=== PATIENT | female | born 1960 | race Caucasian/White ===

== ENCOUNTER 2020-01-05 09:19 | Outpatient (CLI) | payer OTHER, SELFPAY ==
--- NOTE | 2020-01-05 11:00 | NEURO_ITS ---
Patient Number: [id number] Impression: # Complains of right hand pain. # No Carpal Tunnel Syndrome or ulnar neuropathy. # Normal nerve conduction study. # Normal needle/EMG exam. # Clinical correlation recommended. Nerve Conduction Studies Anti Sensory Summary Table Stim Site NR Peak (ms) P-T Amp (?V) Site1 Site2 Delta-P (ms) Dist (cm) Sivakumar (m/s) Right Median Anti Sensory (2-3nd Digit) Wrist 2.6 41.2 Wrist 2-3nd Digit 2.6 14.0 54 Wrist 2.5 52.6 Wrist 2-3nd Digit 2.6 14.0 54 Right Radial Anti Sensory (Base 1st Digit) Wrist 2.2 19.7 Wrist Base 1st Digit 2.2 0.0 Right Ulnar Anti Sensory (5th Digit) Wrist 2.3 32.5 Wrist 5th Digit 2.3 14.0 61 Motor Summary Table Stim Site NR Onset (ms) O-P Amp (mV) Site1 Site2 Delta-0 (ms) Dist (cm) Sivakumar (m/s) Right Median Motor (Abd Poll Brev) Wrist 2.7 3.8 Elbow Wrist 5.0 27.0 54 Elbow 7.7 1.7 Right Ulnar Motor (Abd Dig Minimi) Wrist 2.7 5.3 A Elbow Wrist 5.1 28.0 55 A Elbow 7.8 4.4 F Wave Studies NR F-Lat (ms) L-R F-Lat (ms) Right Median (Mrkrs) (Abd Poll Brev) 27.33 Right Ulnar (Mrkrs) (Abd Dig Min) 27.31 EMG Side Muscle Nerve Root Ins Act Fibs Amp Dur Recrt Comment Right 1stDorInt Ulnar C8-T1 Nml Nml Nml Nml Nml Right Ext Indicis Radial (Post Int) C7-8 Nml Nml Nml Nml Nml Right Ext Digitorum Radial (Post Int) C7-8 Nml Nml Nml Nml Nml Right BrachioRad Radial C5-6 Nml Nml Nml Nml Nml Right PronatorTeres Median C6-7 Nml Nml Nml Nml Nml Right Abd Poll Brev Median C8-T1 Nml Nml Nml Nml Nml Right ABD Dig Min Ulnar C8-T1 Nml Nml Nml Nml Nml MTDD
== END 2020-01-05 09:20 | disposition home or self-care (01) ==
LOC: ANHNEURO 09:20
PROVIDERS: PCP Internal Medicine Infectious Disease; Visit Provider Plastic Surgery
DX: R53.1 Weakness (principal); R20.2 Paresthesia of skin
CPT/HCPCS: 95886; 95909

== ENCOUNTER 2021-07-30 09:32 | Outpatient (CLI) | payer OTHER, SELFPAY ==
--- NOTE | 2021-07-30 10:00 | ECG_ITS ---
Measurements Intervals [place] Rate: 62 P: -9 NM: 125 QRS: 72 QRSD: 142 T: 16 QT: 423 QTc: 430 Interpretive Statements SINUS RHYTHM RIGHT BUNDLE BRANCH BLOCK ABNORMAL ECG Electronically Signed On 07-30-2021 9:59:10 GRADUATE INTERN by Matt Jason D.O.
[2021-07-30 10:20] LABS: Anion Gap 10 mmol/L (8-16); Blood Urea Nitrogen 20 mg/dL (7-17); Calcium 10.5 mg/dL (8.4-10.2); Carbon Dioxide 27 mmol/L (22-30); Chloride 100 mmol/L (98-107); Estimated Glomerular Filt Rate > 60; Glucose 194 mg/dL (65-110); Sodium 137 mmol/L (137-145)
== END 2021-07-30 09:33 | disposition home or self-care (01) ==
LOC: ANHSURGERY 09:35
PROVIDERS: Anesthesiology; PCP Family Medicine; Visit Provider Orthopaedic Surgery
DX: Z01.818 Encounter for other preprocedural examination (principal); E11.9 Type 2 diabetes mellitus without complications; I10 Essential (primary) hypertension; Z79.899 Other long term (current) drug therapy; R94.31 Abnormal electrocardiogram [ECG] [EKG]
CPT/HCPCS: 36415; 80048; 93005

== ENCOUNTER 2021-07-31 00:10 | Day surgery (SDC) | payer OTHER, SELFPAY ==
[2021-07-27 12:15] VITALS: BMI 34.7
--- NOTE | 2021-07-27 12:34 | PC.NURSE ---
Report to the Outpatient Waiting Room, entrance under the green pavilion located off [facility], at time 12:00 on date 07/31/21. OR Time: 2:00. - You will be asked a series of questions to screen for COVID 19 for your protection. - A mask is required within the hospital. - No visitors are allowed at this time. Preoperative COVID Testing Requirements: No COVID Test needed if: (proof is required; if not received patient will have Rapid Test prior to entry) - Patient has received COVID Vaccine at least 14 days prior to procedure date or - Patient has positive COVID test result within last 90 days of surgery date. COVID Test needed if above criteria is not met Patients may have clear liquids (water, carbonated beverages, clear teas, apple juice) until 3 hours prior to surgery (11:00) with a maximum of 20 ounces. - No food from midnight until time of surgery Take the following medications with a SIP of water the morning of surgery: 1/2 AM INSULIN DOSE (10 UNITS), LEVOTHYROXINE, GABAPENTIN, SERTRALINE, TRAMADOL (IF NEEDED) Medications to discontinue per physician: ASPIRIN Date to take last dose: PER DR. WOODY Please no make-up, nail belarusian, hairspray, perfume, deodorant, or body powder the day of surgery. No jewelry (including any body piercings) or valuables the day of surgery, leave them at home. Please take a shower or bath the night before, or the morning of, surgery with an antibacterial soap. Wear comfortable, loose fitting clothing. - Jewelry must be removed prior to entering the operating room. Rings and piercings that are not removed may be cut off. - The hospital will not accept responsibility for valuables. - Please leave all valuables, including medications, at home the day of surgery. If you are going home after surgery, a licensed armored car driver must drive you home. - NO public transportation without another adult. - We recommend that an adult stay with you for 24 hours following discharge. - We also recommend that you do not drive, make important decision, drink alcoholic beverages, or take any drugs that were not prescribed by your health care provider for at least 24 hours after your discharge time. Follow any additional instructions given to you from your surgeon. Telephone instructions given to CAROLINA HERMAN and asked if any additional questions and then verbalized understanding. Patient advised to call surgeon office or pre surgery nurse liaison [phone] if any additional questions.
--- NOTE | 2021-07-30 13:23 | WPDANESEPPF ---
Anes - Initial Pre Proc Eval Procedure: Operation Date: 07/31/21 14:00 Proposed Procedures p Right Knee Arthroscopy - Kishore Omer MD Date/Time: 07/30/21 13:23 Surgeon: Kishore Omer MD Pre Op Diagnosis: Rt Medial Meniscus Tear Patient Data Age: 61 Gender: F Height: 1.6 m Weight: 88.9 kg Allergies Allergy/AdvReac Type Severity Reaction Status Date / Time codeine Allergy Severe Anaphylaxis Verified 07/27/21 12:09 orphenadrine Allergy Severe Anaphylactic Verified 07/30/21 13:40 Shock caffeine Allergy Mild Hives Verified 07/27/21 12:09 meperidine Allergy Mild Unknown Verified 07/30/21 13:40 Home Medications Medication Instructions Recorded Confirmed Type aspirin 325 mg tablet 325 mg PO DAILY 03/22/21 07/27/21 History cetirizine 10 mg tablet 10 mg PO DAILY PRN 03/22/21 07/27/21 History cyclobenzaprine 10 mg tablet 10 mg PO TID 03/22/21 07/27/21 History famotidine 40 mg tablet 40 mg PO DAILY 03/22/21 07/27/21 History fenofibrate 160 mg tablet 160 mg PO DAILY 03/22/21 07/27/21 History gabapentin 300 mg/6 mL (6 mL) oral 100 mg PO Q4-5H ml 03/22/21 07/27/21 History solution levothyroxine 25 mcg capsule 25 mcg PO DAILY 03/22/21 07/27/21 History lisinopril 20 1 tablet PO DAILY 03/22/21 07/27/21 History mg-hydrochlorothiazide 12.5 mg tablet metformin 1,000 mg tablet 1,000 mg PO BID 03/22/21 07/27/21 History montelukast 10 mg tablet 10 mg PO DAILY 03/22/21 07/27/21 History rosuvastatin 20 mg tablet 20 mg PO DAILY 03/22/21 07/27/21 History sertraline 100 mg tablet 200 mg PO DAILY tablet 03/22/21 07/27/21 History tramadol 50 mg tablet 50 mg PO Q6H PRN 03/22/21 07/27/21 History chlorhexidine gluconate 4 % 1 applic TOPICAL ONCE #3800 ml 05/21/21 07/27/21 Rx topical liquid empagliflozin [Jardiance] 10 mg PO DAILY 07/27/21 07/27/21 History insulin glargine [Lantus Solostar 20 unit SUBCUT BID 07/27/21 07/27/21 History U-100 Insulin] insulin lispro [Admelog U-100 12 unit SUBCUT TIDWM 07/27/21 07/27/21 History Insulin lispro] Patient hx anesthesia problems: none Family hx anesthesia problems: none Results Review: All pre-operative results and documents have been reviewed as part of the pre-operative evaluation. [facility] Past Medical History Medical History Abdominal pain Anxiety Arthritis Depression Diabetes Diabetes Diarrhea Diet-controlled hyperlipidemia Excessive thirst Falls frequently Fibrocystic breast disease Hair loss HTN (hypertension) Medial meniscus tear Medial meniscus tear Nausea & vomiting Right knee pain Vision abnormalities Wears glasses Surgical History Surgical History History of elbow surgery bilateral History of hand surgery bilateral trigger finger History of hysterectomy History of shoulder surgery Family History Family History Other Arthritis Asthma Depression Diabetes mellitus Heart disease High cholesterol Hypertension Kidney disorder Lung disease Neuropathy Social History Social History Smoking packs per day: 0.75 Smoking cigarettes per day: 15.0 Years smoked: 20 Smoking pack-years: 15.00 Tobacco type: cigarettes Smoking end date: 07/07/04 Alcohol intake: never Substance use: never Substance use type: does not use Living arrangements: alone Spiritual care concerns: No Anes - Eval Final PreProcedure Day of Procedure 07/30/21 13:23 Patient weight: obese Heart: regular rate and rhythm Lungs: clear to auscultation and normal air movement Airway: Mallampati scale class II Neurological: alert and oriented Last oral intake: >/= 8 hours ASA classification: III Emergent: no Anesthetic plan: proceed Anesthesia type and monitoring: general LMA Results Review: All pre-operative results and documents hav
[2021-07-31] VITALS (13 sets, daily range): BP systolic 134–159; BP diastolic 65–93; PULSE 78–98; RESP 12–16; TEMP 36–37.1; O2SAT 94–100
--- NOTE | 2021-07-31 07:30 | WPDHPUPDATE1 ---
History and Physical Update Update Date/Time: 07/31/21 07:30 History and Physical has been reviewed, including an updated exam of the patient. There are NO changes in the patient's condition. Risks, benefits, and alternatives have been discussed and questions answered. Patient agrees to proceed with procedure.
[2021-07-31] MEDS: CELECOXIB 200 MG CAPSULE PO (09:20)
[2021-07-31] MEDS: ACETAMINOPHEN 500 MG TABLET 1000 MG PO (09:20)
[2021-07-31] MEDS: LACTATED RINGERS 1,000 ML 30 ML IV CONT ×2 (09:49→11:57)
[2021-07-31 09:53] LABS: Glucose Point of Care 146 mg/dl (65-105)
[2021-07-31] MEDS: ceFAZolin 2 GM/D5W 50 ML 2 GM/50 ML BAG IVPB (10:42)
[2021-07-31 12:04] LABS: Glucose Point of Care 181 mg/dl (65-105)
--- NOTE | 2021-07-31 12:34 | P.OP_ITS ---
Procedure Note - Detailed Date of Procedure 07/31/21 Pre-op Diagnosis Rt Medial Meniscus Tear Post-op Diagnosis same Procedure Performed RIGHT KNEE SCOPE Surgeon Kishore Omer MD Anesthesia general Description of Procedure PATIENT WAS TAKEN TO THE OR. RIGHT LEG WAS PREPPED AND DRAPED STERILE. TROCARS WERE PLACED IN THE USUAL FASHION. CAMERA WAS INTRODUCED. THERE WAS CHONDROMALACIA TO THE PATELLA FEMORAL JOINT. THERE WAS A LOT OF SYNOVITIS IN ALL COMPARTMENTS. THE MEDIAL COMPARTMENT SHOWED CHONDROMALACIA TO THE MEDIAL FEMORAL CONDYLE. A SHAVER WAS USED TO PREFORM A CHONDROPLASTY. THERE WAS A COMPLEX MEDIAL MENISCUS TEAR. THE TEAR WAS LOCATED AT THE MENISCAL ROOT. THE TEAR WAS RESECTED WITH A BITER AND A SHAVER DOWN TO A SMOOTH BASE. THE ACL WAS INTACT. THE LATERAL MENISCUS WAS NOT TORN THE LAT COMPARTMENT HAD GRADE 2 CHONDROMALACIA AT THE LATERAL PLATEAU. CHONDROPLASTY WAS PREFORMED. A SYN OVECTOMY WAS PREFORMED WELL. THE PATELLO FEMORAL JOINT UNDERWENT CHONDROPLASTY. THERE WAS GRADE 2 CHONDROMALACIA IN PART OF THE TROCHLEA AND PART OF THE PATELLA. SYNOVECTOMY WAS PREFORMED IN THE SUPERIOR MEDIAL COMPARTMENT. THE WOUNDS WERE APPROXIMATED WITH 4.0 NYLON. STERILE DRESSING WAS APPLIED. PATIENT WAS EXTUBATED. Estimated Blood Loss 5 Complications No immediate complications Condition stable Disposition PACU
[2021-07-31] MEDS: fentaNYL CITRATE INJ (*CRX) 100 MCG/2 ML VIAL 25 MCG IV PUSH (12:48)
[2021-07-31] MEDS: oxyCODONE HCL (*CRX) 5 MG TAB IR PO (14:43)
== END 2021-07-31 15:44 | disposition home or self-care (01) ==
PROVIDERS: PCP Family Medicine; Visit Provider Orthopaedic Surgery
PROC: (CPT 29870; principal; 2021-07-31 10:30)
DX: M23.331 Other meniscus derangements, other medial meniscus, right knee (principal); M94.261 Chondromalacia, right knee; M65.861 Other synovitis and tenosynovitis, right lower leg; I10 Essential (primary) hypertension; E11.40 Type 2 diabetes mellitus with diabetic neuropathy, unspecified; F41.8 Other specified anxiety disorders; R29.6 Repeated falls; Z79.82 Long term (current) use of aspirin; Z79.84 Long term (current) use of oral hypoglycemic drugs; Z79.4 Long term (current) use of insulin; Z87.891 Personal history of nicotine dependence; E66.9 Obesity, unspecified; Z68.33 Body mass index [BMI] 33.0-33.9, adult
CPT/HCPCS: 29881; 82948; A9270; J0690; J1100; J2250; J2405; J2704; J3010; J7120

== ENCOUNTER 2021-10-24 13:55 | Outpatient (CLI) | payer OTHER, SELFPAY ==
--- NOTE | ~2021-10-24 | MR_ITS ---
EXAMINATION: MR knee RT wo con DATE: 10/24/2021 14:27 INDICATION: Right knee pain. TECHNIQUE: Magnetic resonance imaging (MRI) of the right knee was performed without intravenous contr ast. Sequences included coronal PD-weighted FSE, coronal PD-weighted FS FSE, sagittal T2-weighted FS E, sagittal PD-weighted FS FSE and axial PD weighted fat saturated FSE. COMPARISON: None. FINDINGS: Medial compartment: Radial tear near the posterior root of the medial meniscus. Shallow chondral ulceration along the ant erior weightbearing medial femoral condyle. Lateral compartment: Lateral meniscus is normal. Articular cartilage is normal. Patellofemoral compartment: Chondral ulceration with deep fissuring at the central aspect of the patellar apical ridge and immedi ately adjacent medial to central aspect of the lateral patellar facet. Additional deep chondral ulcer ation with minimal underlying cortical irregularity along the inferior aspect of the lateral trochlea . Ligaments and tendons: Anterior and posterior cruciate ligaments are normal. The medial collateral ligament and fibular nesha ateral ligament complex are normal. The extensor mechanism is normal. The visualized medial and later al hamstring tendons as well as the iliotibial band are normal. Fluid: Small right knee joint effusion. Moderate-sized Taylor's cyst measuring 5.6 cm craniocaudal and 3.7 x 1.3 cm in maximal orthogonal dimensions. No loose osteochondral bodies identified. Osseous/other: Normal marrow signal. No fracture or pathologic marrow replacing process. IMPRESSION: 1. Full-thickness radial tear near the posterior root of the medial meniscus. 2. Mild osteoarthritis with moderate grade chondromalacia in the medial compartment and moderate to h igh-grade in the patellofemoral compartment. 3. Small right knee joint effusion and moderate-sized Taylor's cyst. Reviewed, dictated and finalized at location A. IMPRESSION: 1. Full-thickness radial tear near the posterior root of the medial meniscus. 2. Mild osteoarthritis with moderate grade chondromalacia in the medial compart ment and moderate to high-grade in the patellofemoral compartment. 3. Small right knee joint effusion and moderate-sized Taylor's cyst.
== END 2021-10-24 13:56 | disposition home or self-care (01) ==
LOC: ANHIMG 13:56
PROVIDERS: PCP Family Medicine; Visit Provider Orthopaedic Surgery
DX: M25.561 Pain in right knee (principal); S83.241A Other tear of medial meniscus, current injury, right knee, initial encounter; M17.11 Unilateral primary osteoarthritis, right knee; M94.261 Chondromalacia, right knee; M25.461 Effusion, right knee; M71.21 Synovial cyst of popliteal space [Baker], right knee
CPT/HCPCS: 73721

== ENCOUNTER 2021-10-30 08:50 | Outpatient (CLI) | payer OTHER, SELFPAY ==
[2021-10-30 09:40] LABS: Anion Gap 9 mmol/L (8-16); Blood Urea Nitrogen 27 mg/dL (7-17); Calcium 10.1 mg/dL (8.4-10.2); Carbon Dioxide 27 mmol/L (22-30); Chloride 101 mmol/L (98-107); Estimated Glomerular Filt Rate > 60; Glucose 211 mg/dL (65-110); Potassium 4.7 mmol/L (3.4-5.0); Sodium 137 mmol/L (137-145)
== END 2021-10-30 08:51 | disposition home or self-care (01) ==
PROVIDERS: Anesthesiology; PCP Family Medicine; Visit Provider Orthopaedic Surgery
DX: Z01.812 Encounter for preprocedural laboratory examination (principal); E11.9 Type 2 diabetes mellitus without complications
CPT/HCPCS: 36415; 80048

== ENCOUNTER 2021-11-06 00:21 | Day surgery (SDC) | payer OTHER, SELFPAY ==
[2021-10-29 10:13] VITALS: BMI 34.6
--- NOTE | 2021-10-29 10:20 | PC.NURSE ---
Addendum entered by Lima Hensley RN 10/30/21 07:29: STOP ASPIRIN PER DR. WOODY'S INSTRUCTIONS Original Note: Report to the Outpatient Waiting Room, entrance under the green pavilion located off [facility], at time _1030_ on date _[id number]_. OR Time: _1230_. - You and your visitor will be asked a series of questions to screen for COVID 19 for your protection. - A mask is required within the hospital. - Patient has received COVID Vaccine at least 14 days prior to procedure date. Patients may have clear liquids (water, carbonated beverages, clear teas, apple juice) until 3 hours prior to surgery with a maximum of 20 ounces. - No food from midnight until time of surgery Take the following medications with a SIP of water the morning of surgery: _Gabepentin and Levothyroxine Medications to discontinue per physician Date to take last dose No insulin or diabetic medication morning of surgery. Please no make-up, nail sri lankan, hairspray, perfume, deodorant, or body powder the day of surgery. No jewelry (including any body piercings) or valuables the day of surgery, leave them at home. Please take a shower or bath the night before, or the morning of, surgery with an antibacterial soap. Wear comfortable, loose fitting clothing. Children are encouraged to wear pajamas. - Jewelry must be removed prior to entering the operating room. Rings and piercings that are not removed may be cut off. - The hospital will not accept responsibility for valuables. - Please leave all valuables, including medications, at home the day of surgery. If you are going home after surgery, a licensed company driver must drive you home. - NO public transportation without another adult. - We recommend that an adult stay with you for 24 hours following discharge. - We also recommend that you do not drive, make important decision, drink alcoholic beverages, or take any drugs that were not prescribed by your health care provider for at least 24 hours after your discharge time. For Pediatric surgeries, we recommend two adults accompany the child home (only one inside the building at this time). One visitor will be allowed to accompany the patient into the hospital. Patients visitor will be instructed to remain with patient at all times or leave the building. We will allow the visitor to come back to the postoperative area when patient is ready. Follow any additional instructions given to you from your surgeon. Telephone instructions given to ___Patient and asked if any additional questions and then verbalized understanding. Patient advised to call surgeon office or pre surgery nurse liaison [phone] if any additional questions.
[2021-11-06] VITALS (10 sets, daily range): BP systolic 112–197; BP diastolic 57–97; PULSE 58–87; RESP 10–16; TEMP 36.6–36.7; O2SAT 93–100
--- NOTE | 2021-11-06 07:15 | WPDHPUPDATE1 ---
History and Physical Update Update Date/Time: 11/06/21 07:15 History and Physical has been reviewed, including an updated exam of the patient. There are NO changes in the patient's condition. Risks, benefits, and alternatives have been discussed and questions answered. Patient agrees to proceed with procedure.
[2021-11-06 10:09] LABS: Glucose Point of Care 152 mg/dl (65-105)
[2021-11-06] MEDS: LACTATED RINGERS 1,000 ML 30 ML IV CONT ×2 (10:25→13:51)
[2021-11-06] MEDS: ACETAMINOPHEN 500 MG TABLET 1000 MG PO (10:30)
[2021-11-06] MEDS: CELECOXIB 200 MG CAPSULE PO (10:30)
--- NOTE | 2021-11-06 11:27 | WPDANESEPPF ---
Anes - Initial Pre Proc Eval Procedure: Operation Date: 11/06/21 12:30 Proposed Procedures p Right Knee Arthroscopy, Proceed As Indicated - Kishore Omer MD Date/Time: 11/06/21 11:27 Surgeon: Kishore Omer MD Pre Op Diagnosis: right knee medial meniscus tear Patient Data Age: 61 Gender: F Height: 1.6 m Weight: 89 kg Last Vital Signs Temp 36.7 C 11/06/21 09:55 Pulse 74 11/06/21 09:55 Resp 16 11/06/21 09:55 BP 132/79 11/06/21 09:55 Pulse Ox 98 11/06/21 09:55 Allergies Allergy/AdvReac Type Severity Reaction Status Date / Time codeine Allergy Severe Anaphylaxis Verified 11/06/21 09:56 orphenadrine Allergy Severe Anaphylactic Verified 11/06/21 09:56 Shock caffeine Allergy Mild Hives Verified 11/06/21 09:56 meperidine Allergy Mild Unknown Verified 11/06/21 09:56 Home Medications Medication Instructions Recorded Confirmed Type cetirizine 10 mg tablet 10 mg PO DAILY 03/22/21 10/29/21 History cyclobenzaprine 10 mg tablet 10 mg PO TID 03/22/21 10/29/21 History famotidine 40 mg tablet 40 mg PO DAILY 03/22/21 10/29/21 History fenofibrate 160 mg tablet 160 mg PO DAILY 03/22/21 10/29/21 History levothyroxine 25 mcg capsule 25 mcg PO DAILY 03/22/21 10/29/21 History lisinopril 20 1 tablet PO DAILY 03/22/21 10/29/21 History mg-hydrochlorothiazide 12.5 mg tablet montelukast 10 mg tablet 10 mg PO DAILY 03/22/21 10/29/21 History rosuvastatin 20 mg tablet 20 mg PO DAILY 03/22/21 10/29/21 History sertraline 100 mg tablet 200 mg PO HS tablet 03/22/21 10/29/21 History tramadol 50 mg tablet 50 mg PO Q6H PRN 03/22/21 10/29/21 History Jardiance 10 mg PO DAILY 07/27/21 10/29/21 History Lantus Solostar U-100 Insulin 20 unit SUBCUT BID 07/27/21 10/29/21 History insulin lispro [Admelog U-100 12 unit SUBCUT TIDWM 07/27/21 10/29/21 History Insulin lispro] aspirin [Aspir-81] 81 mg PO DAILY 10/29/21 10/29/21 History gabapentin 300 mg PO TID 10/29/21 10/29/21 History metformin 500 mg PO BID 10/29/21 10/29/21 History Laboratory Tests 11/06/21 10:07 POC Capillary Glucose 152 mg/dl H mg/dl (65-105) Patient hx anesthesia problems: none Family hx anesthesia problems: none Results Review: All pre-operative results and documents have been reviewed as part of the pre-operative evaluation. [facility] Past Medical History Medical History Abdominal pain Anxiety Arthritis Depression Diabetes Diabetes Diarrhea Diet-controlled hyperlipidemia Excessive thirst Falls frequently Fibrocystic breast disease Hair loss HTN (hypertension) Medial meniscus tear Medial meniscus tear Nausea & vomiting Right knee pain Vision abnormalities Wears glasses Surgical History Surgical History History of elbow surgery bilateral History of hand surgery bilateral trigger finger History of hysterectomy History of shoulder surgery Family History Family History Other Arthritis Asthma Depression Diabetes mellitus Heart disease High cholesterol Hypertension Kidney disorder Lung disease Neuropathy Social History Social History Smoking packs per day: 1 Smoking cigarettes per day: 20.0 Years smoked: 10 Smoking pack-years: 10.00 Smoking status: Former smoker Tobacco type: cigarettes Smoking end date: 10/29/01 Alcohol intake: never Substance use: never Substance use type: does not use Living arrangements: alone Spiritual care concerns: No Anes - Eval Final PreProcedure Day of Procedure 11/06/21 11:27 Patient weight: obese Heart: regular rate and rhythm Lungs: decreased breath sounds Airway: Mallampati scale class II Neurological: alert and oriented Last oral intake: >/= 8 hours ASA classification: III Emergent: no Anest
[2021-11-06] MEDS: ceFAZolin 2 GM/D5W 50 ML 2 GM/50 ML BAG IVPB (12:48)
[2021-11-06] MEDS: BUPIVACAINE HCL 0.5% PF 30 ML VIAL INFILTRATE (13:07)
[2021-11-06] MEDS: fentaNYL CITRATE INJ (*CRX) 100 MCG/2 ML VIAL 25 MCG IV PUSH ×8 (14:01→15:37)
[2021-11-06 14:08] LABS: Glucose Point of Care 131 mg/dl (65-105)
--- NOTE | 2021-11-06 14:10 | W.PM.PROC2 ---
Procedure Note - Detailed Date of Procedure 11/06/21 Pre-op Diagnosis right knee recurrent medial meniscus tear Post-op Diagnosis Same Procedure Performed RIGHT KNEE SCOPE Surgeon Kishore Omer MD Anesthesia General Description of Procedure PATIENT WAS TAKEN TO THE OR. RIGHT LEG WAS PREPPED AND DRAPED STERILE. TROCARS WERE PLACED IN THE USUAL FASHION. CAMERA WAS INTRODUCED. THERE WAS CHONDROMALACIA TO THE PATELLA FEMORAL JOINT. THERE WAS A LOT OF SYNOVITIS IN ALL COMPARTMENTS. THE MEDIAL COMPARTMENT SHOWED CHONDROMALACIA TO THE MEDIAL FEMORAL CONDYLE. A SHAVER WAS USED TO PREFORM A CHONDROPLASTY. THERE WAS A RECURRENT MEDIAL MENISCUS TEAR AT THE ROOT OF THE MEDIAL MENISCUS. THE TEAR WAS RESECTED WITH A BITER AND A SHAVER. THE ACL WAS INTACT. THE LATERAL MENISCUS WAS NOT TORN. THERE WAS NO SIGNIFICANT CHONDROMALACIA TO THE LATERAL COMPARTMENT. THE PATELLO FEMORAL JOINT UNDERWENT CHONDROPLASTY. THERE WAS GRADE 3 CHONDROMALACIA IN PART OF THE PATELLA AND GRADE 2 IN THE TROCHLEA. SYNOVECTOMY WAS PREFORMED IN THE SUPERIOR MEDIAL COMPARTMENT. THE WOUNDS WERE APPROXIMATED WITH 4.0 NYLON. STERILE DRESSING WAS APPLIED. PATIENT WAS EXTUBATED. Estimated Blood Loss -5.0 Complications No immediate complications Condition Stable Disposition PACU
[2021-11-06] MEDS: oxyCODONE/ACETAMINOPHEN (*CRX) 5-325 MG TABLET 1 TABLET PO (15:29)
== END 2021-11-06 16:15 | disposition home or self-care (01) ==
PROVIDERS: PCP Family Medicine; Visit Provider Orthopaedic Surgery
PROC: (CPT 29870; principal; 2021-11-06 12:30)
DX: M23.203 Derangement of unspecified medial meniscus due to old tear or injury, right knee (principal); M22.41 Chondromalacia patellae, right knee; M23.91 Unspecified internal derangement of right knee; M65.861 Other synovitis and tenosynovitis, right lower leg; F41.8 Other specified anxiety disorders; M19.90 Unspecified osteoarthritis, unspecified site; M25.561 Pain in right knee; E11.9 Type 2 diabetes mellitus without complications; E78.5 Hyperlipidemia, unspecified; I10 Essential (primary) hypertension; Z91.81 History of falling; N60.19 Diffuse cystic mastopathy of unspecified breast; Z87.891 Personal history of nicotine dependence; E03.9 Hypothyroidism, unspecified; Z79.82 Long term (current) use of aspirin; Z79.84 Long term (current) use of oral hypoglycemic drugs; Z79.4 Long term (current) use of insulin; E66.9 Obesity, unspecified; Z68.34 Body mass index [BMI] 34.0-34.9, adult
CPT/HCPCS: 29881; 82948; A9270; J0690; J1040; J2250; J2405; J2704; J3010; J7120

== ENCOUNTER 2024-08-26 11:46 | Outpatient (CLI) | payer MEDICARE, MEDICAID, SELFPAY ==
--- NOTE | ~2024-08-26 | XR_ITS ---
Right elbow Technique: AP, oblique, and lateral views were obtained. Clinical History: Pain Findings: Subtle linear lucency at the medial epicondyle region is felt to be artifactual. No evidenc e of fracture. Osseous alignment is anatomic. Joint spaces are preserved. There is no displacement of the fat pads, and soft tissues are unremarkable. Impression: Subtle linear lucency medial epicondyle region is felt to be artifactual. Correlate clinically for an y possibility of nondisplaced fracture. Consider cross-sectional imaging to further evaluate, as esperanza cated. Reviewed, dictated and finalized at location . [employer]ANT MEDIA BUYER Impression: Subtle linear lucency medial epicondyle region is felt to be artifactual. Corre late clinically for any possibility of nondisplaced fracture. Consider cross-se ctional imaging to further evaluate, as indicated.
--- NOTE | ~2024-08-26 | XR_ITS ---
Right Shoulder Technique: AP and axillary views were obtained. Clinical History: Pain Findings: No fracture or dislocation is seen. Osseous alignment is anatomic. The glenohumeral and acr omioclavicular joints demonstrate minimal degenerative change. Soft tissues are unremarkable. Impression: Minimal degenerative changes, as above. Reviewed, dictated and finalized at [facility]. H MACHINE SETTER Impression: Minimal degenerative changes, as above.
--- OUTSIDE RECORDS SUMMARY | 2024-08-26 11:59 | XMS_ITS | Clinical Summary ---
Author Organization [facility] [address] [place] [address] [place] [id number] Care Team Providers Care Animal Impersonator Name Role Phone Adolfo Lyn Primary Care Provider + Allergies Active Allergy Reactions Criticality Noted Date Comments Codeine Rash Medium 12/25/2023 Hydrocodone-Acetaminophe n Hives,Itching,Swell ing,Rash High 11/21/2016 Throat swelled,hives,troub le breathing Iodinated Contrast Media Unknown,Rash Medium Empagliflozin Diarrhea Medium 06/18/2022 Meperidine Rash Medium 12/25/2023 [id number] e Unknown 12/25/2023 Semaglutide Diarrhea,Stomach upset High 06/18/2022 Medications cetirizine (ZyrTEC) 10 mg tablet cetirizine 10 mg tablet Active famotidine (PEPCID) 20 mg tablet famotidine 20 mg tablet Active fenofibrate (TRIGLIDE) 160 mg tablet fenofibrate 160 mg tablet Active lisinopril-hydroCH LOROthiazide (ZESTORETIC) 20-12.5 mg per tablet lisinopril 20 mg-hydrochloroth iazide 12.5 mg tablet 07/07/18 70 Active montelukast (SINGULAIR) 10 mg tablet montelukast 10 mg tablet Active rosuvastatin (CRESTOR) 40 mg tablet rosuvastatin 40 mg tablet Active sertraline (ZOLOFT) 100 mg tablet sertraline 100 mg tablet 07/07/18 70 Active traMADoL (ULTRAM) 50 mg tablet 0 04/24/20 21 Active fluticasone propionate (FLONASE) 50 mcg/actuation nasal spray 08/31/19 22 Active cyclobenzaprine (FLEXERIL) 10 mg tablet 12/08/19 22 Active ibuprofen (ADVIL,MOTRIN) 200 mg tab/cap ibuprofen Active neomycin-polymyxin -dexAMETHasone (MAXITROL) 3.5mg/mL-10,000 unit/mL-0.1 % ophthalmic suspension neomycin-polymyx in-dexameth 3.5 mg/mL-10,000 unit/mL-0.1% eye drops Active aspirin 81 mg enteric coated tablet 12/08/19 22 Active levothyroxine (SYNTHROID) 100 mcg tablet 12/08/19 22 Active rOPINIRole (REQUIP) 2 mg tablet 05/27/[address] (PROTONIX) 40 mg EC tablet 05/27/20 22 Active glucagon 1 mg kitIndications:Typ e 2 diabetes mellitus with hyperglycemia, with long-term current use of insulin ([facility]) Use as directed for low blood sugar. 1 kit 11 08/20/19 23 Active alcohol swabs (Easy Touch Alcohol Prep Pads) pads, medicated USE TO TEST THREE TIMES DAILY 300 each 3 11/02/19 23 Active sulfaSALAzine (AZULFIDINE) 500 mg tablet Take 1 tablet (500 mg total) by mouth 2 (two) times a day 03/05/20 23 Active Ventolin HFA 90 mcg/actuation inhaler 05/31/20 23 Active ARIPiprazole (ABILIFY) 2 mg tablet 03/31/20 23 Active ondansetron (ZOFRAN) 8 mg tablet 04/03/20 23 Active blood-glucose meter kitIndications:Typ e 2 diabetes mellitus with hyperglycemia, with long-term current use of insulin ([facility]) Use daily or as directed for monitoring of diabetes 1 kit 09/25/19 24 Active blood glucose diagnostic (OneTouch Ultra Test) stripIndications:T ype 2 diabetes mellitus with hyperglycemia, with long-term current use of insulin ([facility]) USE TO TEST BLOOD SUGAR FOUR TIMES DAILY 100 strip 3 12/23/19 24 Active dicyclomine (BENTYL) 10 mg capsule 11/10/19 24 Active estradioL (ESTRACE) 0.01 % (0.1 mg/gram) vaginal cream Active naproxen (NAPROSYN) 500 mg tablet 11/06/19 24 Active ofloxacin (FLOXIN) 0.3 % otic solution Instill 3 drops twice a day by otic route. Active OneTouch Ultra2 Meter misc 09/25/19 24 Active ondansetron (ZOFRAN) 4 mg tablet 11/06/19 24 Active blood-glucose meter,continuous (Dexcom G6 Hoisting Laborer) miscIndications:Ty pe 2 diabetes mellitus with hyperglycemia, with long-term current use of insulin ([facility]) Continuous glucose monitor. 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) Dx: E11.65 insulin dependent. Change sensor every 10 days. 9 each 3 02/11/20 24 Active Additional Information Patient not taking.Reported on 07/19/2024 Dexcom G6 Transmitter deviceIndications: Type 2 diabetes mellitus with hyperglycemia, with long-term current use of insulin ([facility]) Dx: E11.65 insulin dependent. Change transmitter every 90 days. 1 each 3 02/11/20 24 Active Additional Information Patient not taking.Reported on 07/19/2024 calcium carbonate-vitamin D3 (CALTRATE 600 + D) 1500 mg (600 mg elemental) -400 units per tablet Take 1 tablet twice a day by oral route with meal(s) for 30 days. 12/17/19 24 Active methylPREDNISolone acetate (DEPO-MedroL) 80 mg/mL injection Take 1 mL by injection route. 11/10/19 24 Active gabapentin (NEURONTIN) 300 mg capsuleIndications :Diabetic polyneuropathy associated with type 2 diabetes mellitus ([facility]/HCC) ([facility]) Take 1 capsule (300 mg total) by mouth 3 (three) times a day 270 capsule 3 04/01/20 24 025 Active metFORMIN (GLUCOPHAGE) 500 mg tabletIndications: Type 2 diabetes mellitus with hyperglycemia, with long-term current use of insulin ([facility]) Take 1 tablet (500 mg total) by mouth 2 (two) times a day with meals 180 tablet 3 04/01/20 24 025 Active Additional Information Patient not taking.Reported on 07/19/2024 lancets (OneTouch Delica Plus Lancet) 30 gauge miscIndications:Ty pe 2 diabetes mellitus with hyperglycemia, with long-term current use of insulin ([facility]) USE TO TEST BLOOD SUGAR LEVELS FOUR TIMES DAILY 100 each 07/01/20 24 Active blood-glucose sensor (DEXCOM G7 [facility]) Active glimepiride (AMARYL) 4 mg tabletIndications: type 2 diabetes mellitus Take 1 tablet (4 mg total) by mouth 2 (two) times a day before lunch and dinner 180 tablet 07/19/19 026 Active insulin glargine (LANTUS) 100 unit/mL (3 mL) pen for injectionIndicatio ns:Type 2 diabetes mellitus with hyperglycemia, with long-term current use of insulin ([facility]) Inject 75 Units under the skin every morning 75 mL 07/19/19 026 Active insulin lispro (HumaLOG) 100 unit/mL pen for injectionIndicatio ns:type 2 diabetes mellitus Inject 60-75 Units under the skin 3 (three) times a day before meals 205 mL 07/19/19 25 026 Active pen needle, diabetic (BD Lily 2nd Gen Pen Needle) 32 gauge x 5/32 needleIndications: Type 2 diabetes mellitus with hyperglycemia, with long-term current use of insulin ([facility]) Use to inject insulin 5-6 times/day 180 each 07/19/19 25 Active Active Problems Problem Noted Date Diagnosed Date Morbid (severe) obesity due to excess calories 0 02/11/2024 Body mass index 40.0-44.9, adult ([facility]) 02/10 Class 3 severe obesity due t o excess calories with serious comorbidity and body mass index (BMI) of 40.0 to 44.9 in adult 02/11/2024 Assessment & Plan (02/11/2024 11:14 AM CDT): Discussed healthy diet and importance of regular physical activity (20- 30min/day, 150min/wk). Using recumbent exercise bike 2x/day (30 & 15 minutes). Diabetic polyneuropathy asso ciated with type 2 diabetes mellitus ([facility]) 02/11/2024 Assessment & Plan (07/19/2024 10:58 AM AIRCRAFT LOADMASTER SUPERINTENDENT): Chronic problem. Currently taking Gabapentin 300mg tid. Reviewed foot care; needs to lotion daily. Aware to check feet nightly, not to go barefoot. Assessment & Plan (04/01/2024 9:42 AM CDT): Chronic problem. Currently taking Gabapentin 300mg tid. Reviewed foot care; needs to lotion daily. Aware to check feet nightly, not to go barefoot. Assessment & Plan (02/11/2024 11:14 AM CDT): Chronic problem. Currently taking Gabapentin 300mg tid. Reviewed foot care; needs to lotion daily. Aware to check feet nightly, not to go barefoot. Hypothyroidism 09/25/2023 Assessment & Plan (07/19/2024 10:58 AM AIRCRAFT LOADMASTER SUPERINTENDENT): Chronic problem. Currently taking Levothyroxine: 1 tab/100mcg Friday through Friday & 1.5/150mcg on Sundays. Will update labs. Verified that she uses mychart. Aware to check results/results letter in [employer]. Will contact by phone if needed. Assessment & Plan (04/01/2024 9:42 AM CDT): Chronic problem. Currently taking Levothyroxine: 1 tab/100mcg Friday through Friday & 1.5/150mcg on Sundays. To repeat labs April 2024. Verified that she uses mychart. Aware to check results/results letter in mychart. Will contact by phone if needed. Assessment & Plan (02/11/2024 4:26 PM CDT): Chronic problem. Last TSH increased to 10.50, T4 low end of normal (0.92). was to change levothyroxine: 1 tab/100mcg Friday through Friday & 1.5/150mcg on Sundays but did not. Never repeated labs. TFTs will be drawn before leaving today. Verified that she uses mychart. Aware to check results/results letter in [employer]. Will contact by phone if needed. Assessment & Plan (09/25/2023 11:57 AM CDT): Chronic problem. Currently taking levothyroxine 100mcg daily. Has been taking w/food & other meds. Reviewed medication scheduling: aware to take 1st thing in morning, 30-60 minutes before food/drink/other medications. TFTs will be drawn before leaving today. Verified that she uses mychart. Aware to check results/results letter in [employer]. Will contact by phone if needed. Class 2 severe obesity due t o excess calories with serious comorbidity and body mass index (BMI) of 35.0 to 35.9 in adult 08/20/2022 Assessment & Plan (08/20/2022 10:51 AM AIRCRAFT LOADMASTER SUPERINTENDENT): Discussed healthy diet and importance of regular physical activity (20- 30min/day, 150min/wk). Discussed stationary exercises (leg lifts, arm weights/resistance) while she is dealing with R knee issues & left foot fracture. Hypertension associated with type 2 diabetes roger litus 02/27/2022 Assessment & Plan (07/19/2024 10:58 AM AIRCRAFT LOADMASTER SUPERINTENDENT): Chronic problem, well controlled on Lisinopril/hctz 20/12.5mg. Will update labs. Verified that she uses mychart. Aware to check results/results letter in [employer]. Will contact by phone if needed. Assessment & Plan (04/01/2024 9:41 AM CDT): Chronic problem, well controlled on Lisinopril/hctz 20/12.5mg. Assessment & Plan (02/11/2024 11:04 AM CDT): Chronic problem, well controlled on Lisinopril/hctz 20/12.5mg. Assessment & Plan (09/25/2023 11:10 AM CDT): Chronic problem, well controlled on Lisinopril/hctz 20/12.5mg. Assessment & Plan (03/18/2023 4:36 PM CDT): Goal blood pressure is less than 140/85 Low salt diet was discussed andd recommended The importance of daily aerobic exercise was also emphasized. Continue current meds, including lisinopril Assessment & Plan (08/19/2022 3:00 PM AIRCRAFT LOADMASTER SUPERINTENDENT): Chronic problem, well controlled on current regimen. Lisinopril/hctz 20/12.5mg. No changes at this time. Assessment & Plan (06/18/2022 12:44 PM AIRCRAFT LOADMASTER SUPERINTENDENT): Chronic, well controlled Importance of low salt diet and exercise were discussed Continue current meds Update MA Assessment & Plan (02/28/2022 1:44 PM CDT): Controlled on current medications, no changes. Hyperlipidemia associated with type 2 diabetes julien lisa 02/27/2022 Assessment & Plan (07/19/2024 10:58 AM AIRCRAFT LOADMASTER SUPERINTENDENT): Chronic problem, well controlled on current Rosuvastatin 40mg & fenofibrate 160mg daily. Last lipid panel: 06/10/23 LDL=70, QT=266. Will update labs. Verified that she uses [employer]. Aware to check results/results letter in [employer]. Will contact by phone if needed. Assessment & Plan (04/01/2024 9:41 AM CDT): Chronic problem, well controlled on current Rosuvastatin 40mg & fenofibrate 160mg daily. Last lipid panel: 06/10/23 LDL=70, PQ=302. Assessment & Plan (02/11/2024 11:04 AM CDT): Chronic problem, well controlled on current Rosuvastatin 40mg & fenofibrate 160mg daily. Last lipid panel: 06/10/23 LDL=70, NJ=764. Assessment & Plan (09/25/2023 11:10 AM CDT): Chronic problem, well controlled on current Rosuvastatin 40mg & fenofibrate 160mg daily. Last lipid panel: 06/10/23 LDL=70, EK=042. Assessment & Plan (03/18/2023 4:36 PM CDT): Chronic, well-controlled Continue statin therapy with rosuvastatin Assessment & Plan (08/19/2022 2:59 PM AIRCRAFT LOADMASTER SUPERINTENDENT): Chronic problem, well controlled on current rosuvastatin 40mg daily. Last lipid panel 10/25/21: LDL=55, MN=940. No changes at this time. Assessment & Plan (02/28/2022 1:44 PM CDT): Chronic problem. On statin therapy, no changes. Type 2 diabetes mellitus wit h hyperglycemia, with long-term current use of insulin 05/03/2021 Assessment & Plan (07/19/2024 11:20 AM AIRCRAFT LOADMASTER SUPERINTENDENT): Chronic problem, uncontrolled. A1c improved slightly from 8.3% 02/11/24 to 8.2% -Increase glimepiride 4mg with lunch & dinner. -increase humalog by 5 units -increase lantus by 5 units (now 75 units) Current medications: Glimepiride 4mg at lunch & dinner Lantus 75 units every morning Humalog 60 units before lunch & dinner For blood sugars over 200: take 65 units For blood sugars over 300: take 75 units In morning if NOT eating : For blood sugar over 150: take 15 units For blood sugar over 200: take 25 units For blood sugar over 300: take 35 units Will update labs. Verified that she uses [employer]. Aware to check results/results letter in [employer]. Will contact by phone if needed. DM eye exam 11/2023 [facility] in [place]. Will send 2nd request letter. Discussed with Hannah Mejia: Limited currently d/t R knee pain. Strive for regular exercise (30min most days) and diet (get at least 4-5 servings of fruit and veggies daily, avoid processed foods, increase lean protein intake and decrease carb portions as well as fruit juices, regular soda & desserts). Watch carbs and simple sugars. Check the blood sugar: Dexcom G6. Check the feet daily for skin breakdown and infection. Assessment & Plan (04/01/2024 10:04 AM CDT): Chronic problem, uncontrolled. A1c improved from 8.5% 12/25/23 to 8.3% 02/11/24. will increase glimepiride to 4mg with lunch, keep dinner at 2mg Current medications: Metformin 500mg twice daily with meals Glimepiride 4mg before lunch & 2mg before dinner Lantus 70 units every morning Humalog 55 units before lunch & dinner For blood sugars over 200: take 60 units For blood sugars over 300: take 70 units In morning if NOT eating : For blood sugar over 150: take 10 units For blood sugar over 200: take 20 units For blood sugar over 300: take 30 units UTD on labs. DM eye exam 11/2023 [facility] in [place]. Will send 2nd request letter. Discussed with Hannah Mejia: Limited currently d/t R knee pain. Strive for regular exercise (30min most days) and diet (get at least 4-5 servings of fruit and veggies daily, avoid processed foods, increase lean protein intake and decrease carb portions as well as fruit juices, regular soda & desserts). Watch carbs and simple sugars. Check the blood sugar: Dexcom G6. Check the feet daily for skin breakdown and infection. Assessment & Plan (02/11/2024 11:16 AM CDT): Chronic problem, uncontrolled. A1c improved from 8.7% 09/25/23 to 8.5% 12/25/23. reviewed Dexcom download at time of appt w/Mrs Mejia. Will restart glimepiride 2mg with breakfast & dinner. To watch sugars closely. Current medications: Metformin 500mg twice daily with meals Glimpiride 2mg twice daily with meals Lantus 70 units every morning Humalog 55 units before lunch & dinner For blood sugars over 200: take 60 units For blood sugars over 300: take 70 units In morning if NOT eating and blood sugars over 150: take 10 units For blood sugar over 200: take 20 units For blood sugar over 300: take 30 units UTD on labs. DM eye exam 11/2023 [facility] in [place]. Discussed with Hannah Mejia: Limited currently d/t R knee pain. Strive for regular exercise (30min most days) and diet (get at least 4-5 servings of fruit and veggies daily, avoid processed foods, increase lean protein intake and decrease carb portions as well as fruit juices, regular soda & desserts). Watch carbs and simple sugars. Check the blood sugar: Dexcom G6. Check the feet daily for skin breakdown and infection. Assessment & Plan (12/25/2023 11:39 AM CDT): Chronic, uncontrolled, worsening Continue Metformin 500mg twice daily with meals Continue Lantus 70 units every morning Add 20 units at bedtime Incease Humalog : 65 units before lunch & dinner For blood sugars over 200: take 70 units For blood sugars over 300: take 80 units In morning if NOT eating and blood sugars over 150: take 10 units For blood sugar over 200: take 20 units For blood sugar over 300: take 30 units Continue Glimepiride 2 mg before meals Assessment & Plan (09/25/2023 12:00 PM CDT): Chronic problem, uncontrolled. A1c improved from 9.2% 06/10/23 to now 8.7%. reviewed Dexcom download at time of appt w/Mrs Mejia. Will restart glimepiride 2mg with breakfast & dinner. To watch sugars closely. Current medications: Metformin 500mg twice daily with meals Glimpiride 2mg twice daily with meals Lantus 70 units every morning Humalog 55 units before lunch & dinner For blood sugars over 200: take 60 units For blood sugars over 300: take 70 units In morning if NOT eating and blood sugars over 150: take 10 units For blood sugar over 200: take 20 units For blood sugar over 300: take 30 units Will update CMP lab today. Verified that she uses [employer]. Aware to check results/results letter in [employer]. Will contact by phone if needed. To call to make a diabetic eye exam. Had appt 10/2022 at [facility]--letter sent to get copy of report. Discussed with Hannah Mejia: Limited currently d/t R knee pain. Strive for regular exercise (30min most days) and diet (get at least 4-5 servings of fruit and veggies daily, avoid processed foods, increase lean protein intake and decrease carb portions as well as fruit juices, regular soda & desserts). Watch carbs and simple sugars. Check the blood sugar: Dexcom G6. Check the feet daily for skin breakdown and infection. Assessment & Plan (06/10/2023 1:04 PM AIRCRAFT LOADMASTER SUPERINTENDENT): Continues to be uncontrolled Insulin regimen, explained and adjusted: Take the Lantus, only in the morning, take 70 units in the morning, none at bedtime Take Humalog, 55 units before lunch and dinner For sugars over 200, take 60 units For sugars over 300, take 70 units In the morning if you are not eating, and your sugars are over 150, take 10 units Humalog For sugars over 200, take 20 units For sugars over 300, take 30 units Continue Metformin For low sugars, take 3 glucose tabs ( get those at the pharmacy ) Pt has not tolerated GLP1s Assessment & Plan (03/18/2023 12:08 PM CDT): Hba1c was Lab Results Component Value Date HGBA1C 9.0 03/18/2023 today, indicating poor DM control Goal Hba1c and blood glucose explained Diet and exercise were advised Prevention and treatment of hyypoglcyemia were discussed with the patient Blood glucose monitoring : dEXCOM Adjustment to medications: Stay on Metformin 500mg twice daily Take Lantus, 50 units in the morning 30 units at bedtime When taking steroids and sugars are running persistently high, take Humalog 45 before meals: If sugar over 200: take 50 units If sugar is over 250: take 60 units If sugar is over 300: take 70 units. After a few weeks of taking the steroids and sugars start running lower , take Humalog: Humalog 40 before meals: If sugar over 200: take 45 units If sugar is over 250: take 50 units If sugar is over 300: take 55 units. If Assessment & Plan (08/20/2022 10:52 AM AIRCRAFT LOADMASTER SUPERINTENDENT): Chronic problem, uncontrolled. Has had steroid injections in knee. Increase activity as tolerated. Watch carb intake. Current medications: Metformin 500mg twice daily -- cannot tolerate higher dose (GI) Lantus to 30 units in morning, 30 units at bedtime Humalog 40 before meals: If sugar over 200: take 45 units If sugar is over 250: take 50 units If sugar is over 300: take 55 units. Will update CMP lab today. Verified that she uses [employer]. Aware to check results/results letter in [employer]. Will contact by phone if needed. To call to make a diabetic eye exam. Letter sent to [facility] to get copy of eye exam from 11/2021. Assessment & Plan (06/18/2022 12:44 PM AIRCRAFT LOADMASTER SUPERINTENDENT): Uncontrolled Jardiance d/c Continue Metformin Insulin regimen adjusted : Split the Lantus, take 30 units in the morning and 30 units at bedtime Take Humalog, 40 units before meals. For sugars over 200, take 45 units For sugars over 250, take 50 units For sugars over 300, take 55 units Stay on Metformin Assessment & Plan (02/28/2022 3:10 PM CDT): Chronic problem, not at goal. Change Lantus to 50 units qAM Increase Admelog before meals: If sugar is under 180 take 25 units If sugar is 180-220 take 28 units If sugar is 220-260 take 32 units If sugar is 260-300 take 36 units If sugar is over 300 take 40 units Continue metformin, increase Jardiance to 25 mg daily. Let us know if persistently elevated. Assessment & Plan (10/25/2021 2:06 PM CDT): Hba1c was Lab Results Component Value Date HGBA1C 8.3 10/25/2021 today, indicating Inadequate DM control Goal Hba1c and blood glucose explained Diet and exercise were advised Prevention and treatment of hyypoglcyemia were discussed with the patient Blood glucose monitoring : DEXCOM Adjustment to medications: Lantus, 20 units in the morning and 25 units in the morning. Take Admelog , 18 units before lunch and dinner For sugars over 180, take 20 units For sugars over 220, take 22 units For sugars over 260, take 24 units For sugars over 300, take 26 units Stay on Jardiance and Metformin Assessment & Plan (05/03/2021 4:03 PM CDT): Hba1c was Lab Results Component Value Date HGBA1C 7.2 05/03/2021 today, indicating suboptimally controlled, with hypoglycemia Goal blood glucose levels : 100-150 Target Hba1c : 7 % BG monitoring : continue with DEXCOM Prevention and treatment of hyypoglcyemia discussed. Lantus, 20 units bid , before breakfast and bedtime Take Humalog, 12 units before lunch and dinner For sugars over 180, take 14 units For sugars over 220, take 16 units For sugars over 260, take 18 units For sugars over 300, take 20 units Lower Metformin, 500 mg twice a day Start Jardiance, 10 mg once a day . Start Ozempic, 0.25 mg weekly x 4 weeks, then continue with 0.5 mg weekly If you have severe nausea, vomiting , abdominal pain and/or diarrhea, stop the medication and call the office. Sign up for my chart and send me a message weekly, to see how you are doing . Resolved Problems Problem Noted Date Diagnosed Date Resolved Date Morbid (severe) obesity due to excess calories 02/28/2022 08/19/2022 Assessment & Plan (02/28/2022 3:10 PM CDT): Chronic problem, work on diet and activity as tolerated. Encounters Date Type Department Care Team Description 07/19/2024 11:32 AM AIRCRAFT LOADMASTER SUPERINTENDENT - 07/19/2024 11:59 PM AIRCRAFT LOADMASTER SUPERINTENDENT Hospital Encounter [address] [id number] Hypothyroidism, unspecified type; Type 2 diabetes mellitus with hyperglycemia, with long-term current use of insulin (HCC); Hyperlipidemia associated with type 2 diabetes mellitus (HCC); Hypertension associated with type 2 diabetes mellitus (HCC) Discharge Disposition: Discharge to home or self care 07/19/2024 11:30 AM AIRCRAFT LOADMASTER SUPERINTENDENT Lab [facility] Outpatient Lab at [address] [id number] Type 2 diabetes mellitus with hyperglycemia, with long-term current use of insulin (HCC) (Primary Dx) 07/19/2024 11:00 AM AIRCRAFT LOADMASTER SUPERINTENDENT Office Visit [facility] Diabetes [facility] Endocrinology [address] [place] [id number] Tasneem Prather, ROBERTO Type 2 diabetes mellitus with hyperglycemia, with long-term current use of insulin (HCC) (Primary Dx); Hypertension associated with type 2 diabetes mellitus (HCC); Hyperlipidemia associated with type 2 diabetes mellitus (HCC); Diabetic polyneuropathy associated with type 2 diabetes mellitus (CMS/HCC) (HCC); Hypothyroidism, unspecified type 06/28/2024 Telephone [facility] Diabetes and Endocrinology [address] [place] [phone] Tasneem Prather NP Forms/questionnaires ([facility]) from Last 3 Months Surgical History Surgery Date Site/Laterality Comments KIDNEY STONE SURGERY TRIGGER FINGER RELEASE Bilateral NERVE REPAIR CARPAL TUNNEL RELEASE Bilateral BREAST BIOPSY Bilateral CYST REMOVAL legs HYSTERECTOMY SHOULDER SURGERY KNEE SURGERY Medical History Medical History Date Comments Hypertension Type 2 diabetes mellitus (HCC) Thyroid condition Family History Medical History Relation Name Comments Diabetes Father Hypertension Father Diabetes Mother Hypertension Mother Relation Name Status Comments Father Mother Social History Tobacco Use Types Packs/Day Years Used Date Smoking Tobacco: Never Smokeless Tobacco: Never PHQ-2 Answer Date Recorded PHQ-2 Total Score (If total score is 3 or more points, staff should administer the PHQ-9) 0 06/10/2023 Comments Unknown Sex and Gender Information Value Date Recorded Sex Assigned at Not on file Legal Sex Female 2:31 PM [employer] LOAD[employer] SUPERINTENDENT Gender Identity Not on file Sexual Orientation Not on file Obstetrics History Last Filed Vital Signs Vital Sign Reading Time Taken Comments Blood Pressure 140/74 07/19/2024 10:38 AM AIRCRAFT LOADMASTER SUPERINTENDENT Pulse 76 07/19/2024 10:38 AM [employer]CRAFT LOADMASTER SUPERINTENDENT Temperature - - Respiratory Rate 18 07/19/2024 10:38 AM AIRCRAFT LOADMASTER SUPERINTENDENT Oxygen Saturation - - Inhaled Oxygen Concentration - - Weight 103 kg (227 lb) 07/19/2024 10:38 AM AIRCRAFT LOADMASTER SUPERINTENDENT Height 157.5 cm (5' 2.01 ) 07/19/2024 10:[address] Body Mass Index 41.51 07/19/2024 10:38 AM AIRCRAFT LOADMASTER SUPERINTENDENT Plan of Treatment Health Maintenance Due Date Last Done Comments Colon Cancer Screening-Colonoscopy 1960 Hepatitis C Screening 1960 Osteoporosis Screening-Bone Density Scan 1959 Hepatitis B Screening 1977 Zoster Vaccine (1 of 2) 2009 Pneumococcal vaccine 65+ (2 of 2 - PCV) 07/10/2017 07/10/2016 DTaP/Tdap/Td Vaccine (2 - Td or Tdap) 07/24/2020 07/24/2010 Breast Cancer Screening-Mammogram 04/20/2022 021 Covid-19 Vaccine (2023-08 5 season) 2024 06/19/2021, 10/10/2020, 09/19/2020 Influenza Vaccine (#1) 2024 , 05/12/2019, 03/17/2018, Additional history exists Well Visit 65+ 2024 Depression Screening 06/10/2024 06/10/2023, 06/18/2022, 10/25/2021, Additional history exists Fall Risk Assessment 06/10/2024 06/10/2023 Foot Exam 09/24/2024 09/25/2023, 02/05, 05/03/2021 Dilated Eye Exam 12/04/2024 12/04/2022 Hemoglobin A1C 01/16/2025 07/19/2024, 08/0 01/2024, 12/25/2023, Additional history exists Albumin Creatinine Ratio, Urine 07/19/2025 07/19/2024, 06/10/2023, 06/18/2022, Additional history exists Lipid Panel 07/19/2025 07/19/2024, 12/0 11/2022, 10/25/2021 eGFR 07/19/2025 07/19/2024, 09/05, 08/20/2022, Additional history exists Procedures Procedure Name Priority Date/Time Associated Diagnosis Comments EGFR Routine 07/19/2024 11:32 AM [employer] LOADMA[employer] SUPERINTENDENT Type 2 diabetes mellitus with hyperglycemia, with long-term current use of insulin (HCC) Hypertension associated with type 2 diabetes mellitus (HCC) CHOLESTEROL, LDL, DIRECT Routine 07/19/2024 11:32 AM [employer]CRAFT LOADMASTER SUPERINTENDENT Type 2 diabetes mellitus with hyperglycemia, with long-term current use of insulin (HCC) Hyperlipidemia associated with type 2 diabetes mellitus (HCC) ALBUMIN CREATININE RATIO, URINE Routine 07/19/2024 11:32 AM AIRCRAFT LOADMASTER SUPERINTENDENT Type 2 diabetes mellitus with hyperglycemia, with long-term current use of insulin (HCC) COMPREHENSIVE METABOLIC PANEL Routine 07/19/2024 11:32 AM AIRCRAFT LOADMASTER SUPERINTENDENT Type 2 diabetes mellitus with hyperglycemia, with long-term current use of insulin (HCC) Hypertension associated with type 2 diabetes mellitus (HCC) LIPID PANEL Routine 07/19/2024 11:32 AM AIRCRAFT LOADMASTER SUPERINTENDENT Type 2 diabetes mellitus with hyperglycemia, with long-term current use of insulin (HCC) Hyperlipidemia associated with type 2 diabetes mellitus (HCC) TSH Routine 07/19/2024 11:32 AM AIRCRAFT LOADMASTER SUPERINTENDENT Hypothyroidism, unspecified type T4, FREE Routine 07/19/2024 11:32 AM AIRCRAFT LOADMASTER SUPERINTENDENT Hypothyroidism, unspecified type POCT GLUCOSE Routine 07/19/2024 10:42 AM AIRCRAFT LOADMASTER SUPERINTENDENT Type 2 diabetes mellitus with hyperglycemia, with long-term current use of insulin (HCC) POCT HEMOGLOBIN A1C Routine 07/19/2024 1 0:42 AM [employer]CRAFT LOADMASTER SUPERINTENDENT Type 2 diabetes mellitus with hyperglycemia, with long-term current use of insulin (HCC) DIABETES EYE EXAM Routine 12/04/2022 from Last 3 Months or Most Recently Relevant to Health Maintenance Results * eGFR (07/19/2024 11:32 AM AIRCRAFT LOADMASTER SUPERINTENDENT) [facility] Signature eGFR >90 >=60 mL/min/1. 73 m2 Comment: Interpretive Data Reference Interval Normal >/= 90 mL/min/1.73m2 Mildly decreased* 60 - 89 mL/min/1.73m2 Mildly to moderately decreased 45 - 59 mL/min/1.73m2 Moderately to severely decreased 30 - 44 mL/min/1.73m2 Severely decreased 15 - 29 mL/min/1.73m2 Kidney Failure < 15 mL/min/1.73m2 *Relative to young adult level Estimated glomerular filtration rate is determined by the 2020 CKD-EPI equation recommended by the National Kidney Foundation (A Unifying Approach to GFR Estimation: Recommendations of the NKF-ASK Task Force on Reassessing the Inclusion of Race in Diagnosing Kidney Disease, JASN 2020). The CKD-EPI equation should not be used for patients with unstable renal function and has not been validated in children and those over 70. Current interpretive data was last reviewed 2021. Blood 07/19/2024 11:3 2 AM AIRCRAFT LOADMASTER SUPERINTENDENT 07/19/2024 5:18 PM AIRCRAFT LOADMASTER SUPERINTENDENT us Tasneem Elodia Prather CLAIMS ADJUSTOR LAB BLOOD ORDERABLES Carolann l Result Performing Organization Address [facility] Co de Phone Number ALEX L[place]SF[place] [address] [address] [place] [address] * Albumin Creatinine Ratio, Urine (07/19/2024 11:32 AM AIRCRAFT LOADMASTER SUPERINTENDENT) Albumin Ur 18.2 mg/L Comment: Interpretive Data No reference range established. Current interpretive data was last revised 2018. Creatinine Ur 92.3 mg/dL [facility] Comment: Interpretive Data No reference range established. Current interpretive data was last revised 2018. Albumin Creatinine Ratio, Ur 20 1 - 29 mg/g ALEX Urine 07/19/2024 11:3 2 AM AIRCRAFT LOADMASTER SUPERINTENDENT 07/19/2024 5:00 PM [employer]CRAFT LOADMASTER SUPERINTENDENT us Tasneem Elodia Prather CLAIMS ADJUSTOR LAB URINE ORDERABLES Carolann l Result Performing Organization Address [facility] Co de Phone Number ALEX L[place]SF[place] [id number] [address] [place] [address] * (ABNORMAL) TSH (07/19/2024 11:32 AM AIRCRAFT LOADMASTER SUPERINTENDENT) Pathologist [facility] Thyroid Stimulating Hormone 7.23(H) 0.30 - 4.20 mcIUnit/mL Blood 07/19/2024 11:3 2 AM AIRCRAFT LOADMASTER SUPERINTENDENT 07/19/2024 5:00 PM [employer]CRAFT LOADMASTER SUPERINTENDENT us Tasneemdamon Prather CLAIMS ADJUSTOR LAB BLOOD ORDERABLES Carolann l Result Performing Organization Address [facility] Co de Phone Number ALEX LUNSF[place] [address] [address] [place] [employer] [place] [address] * (ABNORMAL) T4, free (07/19/2024 11:32 AM AIRCRAFT LOADMASTER SUPERINTENDENT) Free T4 0.78(L) 0.90 - 1.70 ng/dL Blood 07/19/2024 11:3 2 AM AIRCRAFT LOADMASTER SUPERINTENDENT 07/19/2024 5:00 PM AIRCRAFT LOADMASTER SUPERINTENDENT Tasneemdamon Prather CLAIMS ADJUSTOR LAB BLOOD ORDERABLES Carolann l Result Performing Organization Address [facility]/ZIP Co de Phone Number ALEX LUNSFORD [phone] [address] [place] [address] * Cholesterol, LDL, direct (07/19/2024 11:32 AM AIRCRAFT LOADMASTER SUPERINTENDENT) LDL Cholesterol, Direct 104 <=129 mg/dL Comment: Interpretive Data Ages < or = 19 years Acceptable: <110 mg/dL Borderline high: 110-129 mg/dL High: >or= 130 mg/dL Ages > or = 20 years Optimal: <100 mg/dL Near optimal: 100-129 mg/dL Borderline high: 130-159 mg/dL High: >160 mg/dL Literature References: 1. Expert Panel on Integrated Guidelines for Cardiovascular Health and Risk Reduction in Children and Adolescents. Pediatrics 2011;128:S213 2. NCEP Expert Panel. Circulation 2004;110:227 Current Interpretive Data was last revised on 2018. Blood 07/19/2024 11:3 2 AM AIRCRAFT LOADMASTER SUPERINTENDENT 07/19/2024 5:18 PM AIRCRAFT LOADMASTER SUPERINTENDENT Narrative ALEX - 07/19/2024 5:53 PM [facility] Cholesterol, LDL, direct reflexed based on Elevated Triglyceride (>400) Tasneem Prather CLAIMS ADJUSTOR LAB BLOOD ORDERABLES Carolann l Result Performing Organization Address City/[facility]/ZIP Co de Phone Number PATTIESENG LUNSFORD [id number] [address] [facility] [employer] [place], [place] [id number] * (ABNORMAL) Lipid panel (07/19/2024 11:32 AM AIRCRAFT LOADMASTER SUPERINTENDENT) Cholesterol 222(H) 30 - 199 mg/dL Comment: Interpretive Data Ages < or = 19 years Acceptable: <170 mg/dL Borderline high: 170-199 mg/dL High: >or= 200 mg/dL Ages > or = 20 years Desirable: <200 mg/dL Borderline high: 200-239 mg/dL High: >or= 240 mg/dL Literature References: 1. Expert Panel on Integrated Guidelines for Cardiovascular Health and Risk Reduction in Children and Adolescents. Pediatrics 2011;128:S213 2. NCEP Expert Panel. Circulation 2004;110:227 Current Interpretive Data was last revised on 2018. Triglycerides 534(H) <=149 mg/dL ALEX LUNSFORD Comment: Interpretive Data Ages < or = 9 years Acceptable: <75 mg/dL Borderline high: 75-99 mg/dL High: >or= 100 mg/dL Ages 10 to 20 years Acceptable: <90 mg/dL Borderline high: 90-129 mg/dL High: >or= 130 mg/dL Ages > or = 20 years Desirable: <150 mg/dL Borderline high: 150-199 mg/dL High: 200-499 mg/dL Very high: >or= 499 mg/dL Literature References: 1. Expert Panel on Integrated Guidelines for Cardiovascular Health and Risk Reduction in Children and Adolescents. Pediatrics 2011;128:S213 2. NCEP Expert Panel. Circulation 2004;110:227 Current Interpretive Data was last revised on 2018. HDL 31(L) >=40 mg/dL ALEX LUNSFORD Comment: Interpretive Data Ages < or = 19 years Acceptable: >45 mg/dL Borderline low: 40-45 mg/dL Low: <40 mg/dL Ages > or = 20 years Desirable: >or= 60 mg/dL Low: <40 mg/dL Literature References: 1. Expert Panel on Integrated Guidelines for Cardiovascular Health and Risk Reduction in Children and Adolescents. Pediatrics 2011;128:S213 2. NCEP Expert Panel. Circulation 2004;110:227 Current Interpretive Data was last revised on 2018. LDL, calculated See Comment <=129 mg/dL ALEX LUNSFORD Comment: Unable to calculate due to elevated Triglycerides. Interpretive Data Ages < or = 19 years Acceptable: <110 mg/dL Borderline high: 110-129 mg/dL High: >or= 130 mg/dL Ages > or = 20 years Optimal: <100 mg/dL Near optimal: 100-129 mg/dL Borderline high: 130-159 mg/dL High: >160 mg/dL Calculated using the Serrano LDL-C estimating equation. This equation was implemented on 2024. Prior to this date LDL-C was estimated using the Friedewald equation. Literature References: 1. Expert Panel on Integrated Guidelines for Cardiovascular Health and Risk Reduction in Children and Adolescents. Pediatrics 2011;128:S213 2. NCEP Expert Panel. Circulation 2004;110:227 3. Zach Pierce et al. FLOWER Cardiol. 2019November 04;5(5):540-548. doi: 10.1001/[email or web address] Current Interpretive Data was last revised on 2024. Non-HDL Cholesterol 191 mg/dL [facility] Comment: Interpretive Data Ages < or = 19 years Acceptable: <120 mg/dL Borderline high: 120-144 mg/dL High: >145 mg/dL Ages > or = 20 years When triglycerides are >200 mg/dL, Non-HDL cholesterol is a secondary target of therapy with treatment goals that are 30 mg/dL greater than the LDL cholesterol target. Literature References: 1. Expert Panel on Integrated Guidelines for Cardiovascular Health and Risk Reduction in Children and Adolescents. Pediatrics 2011;128:S213 2. NCEP Expert Panel. Circulation 2004;110:227 Current Interpretive Data was last revised on 2018. Chol/HDL ratio 7 [facility] Blood 07/19/2024 11:3 2 AM AIRCRAFT LOADMASTER SUPERINTENDENT 07/19/2024 5:00 PM AIRCRAFT LOADMASTER SUPERINTENDENT us Tasneem Prather NP LAB BLOOD ORDERABLES Carolann l Result [facility] [address] [address] Department [place] [address] * (ABNORMAL) Comprehensive metabolic panel (07/19/2024 11:32 AM AIRCRAFT LOADMASTER SUPERINTENDENT) Sodium 139 135 - 145 mmol/L Potassium, pl 3.7 3.3 - 4.9 mmol/L [facility] Chloride 103 97 - 110 mmol/L [facility] CO2 23 22 - 32 mmol/L [facility] Anion gap 13 2 - 15 mmol/L [facility] BUN 12 6 - 25 mg/dL [facility] Creatinine 0.71 0.60 - 1.10 mg/dL [facility] Glucose 236(H) 70 - 199 mg/dL [facility] Comment: Interpretive Data Fasting glucose >/= 126 mg/dl is diagnostic for diabetes. Fasting is defined as no caloric intake for at least 8 hours. Fasting glucose between 100 mg/dl to 125 mg/dl is diagnostic of prediabetes. In a patient with classic symptoms of hyperglycemia or hyperglycemic crisis, a random glucose >/= 200 mg/dl is diagnostic for diabetes. In the absence of unequivocal hyperglycemia, results should be confirmed by repeat testing. The classification and Diagnosis of Diabetes Diabetes Care 2021; 46: S19-S40. Current interpretive data was last revised 2022. Calcium 9.9 8.5 - 10.3 mg/dL [facility] Bilirubin, total 0.5 0.1 - 1.2 mg/dL [facility] Protein, pl 6.5 6.5 - 8.5 g/dL [facility] Albumin 4.1 3.5 - 5.0 g/dL [facility] Alk phos 73 40 - 130 Units/L [facility] ALT 25 7 - 45 Units/L [facility] AST 23 10 - 45 Units/L [facility] Blood 07/19/2024 11:3 2 AM AIRCRAFT LOADMASTER SUPERINTENDENT 07/19/2024 5:00 PM AIRCRAFT LOADMASTER SUPERINTENDENT us Tasneem Prather NP LAB BLOOD ORDERABLES Carolann l Result [facility] [address] [address] [place] [address] * (ABNORMAL) POCT hemoglobin A1c (07/19/2024 10:42 AM AIRCRAFT LOADMASTER SUPERINTENDENT) Hemoglobin A1C, POC 8.2 4.0 - 5.6 % Blood 07/19/2024 10:4 2 AM AIRCRAFT LOADMASTER SUPERINTENDENT us Tasneem Prather CLAIMS ADJUSTOR POINT OF CARE TEST ORDERA BLES Final Result * (ABNORMAL) POCT glucose (07/19/2024 10:42 AM AIRCRAFT LOADMASTER SUPERINTENDENT) Glucose Blood, POC 227 mg/dL Blood 07/19/2024 10:4 2 AM AIRCRAFT LOADMASTER SUPERINTENDENT Tasneem Prather CLAIMS ADJUSTOR POINT OF CARE TEST ORDERA BLES Final Result * DIABETES EYE EXAM (12/04/2022) 12/04/2022 Historical Provider HEALTH MAINTENANCE Edited Result - Final from Last 3 Months or Most Recently Relevant to Health Maintenance Insurance [employer] Care Teams Animal Impersonator Relationship Specialty Start Date End Date Adolfo Lyn PA [employer] [place] [address] PCP - General Internal Medicine 04/01/24
--- OUTSIDE RECORDS SUMMARY | 2024-08-26 11:59 | XMS_ITS | Referral Summary ---
Author Organization [facility] [place] [facility] Address [address] [place] [phone] Care Team Providers Care Packing Room Inspector Name Role Phone Adolfo Lyn Primary Care Provider + Encounters Date Type Department Care Team Description 07/19/2024 11:32 AM MARKETING INFORMATION MANAGER - 07/19/2024 11:59 PM MARKETING INFORMATION MANAGER Hospital Encounter [address] [address] Hypothyroidism, unspecified type; Type 2 diabetes mellitus with hyperglycemia, with long-term current use of insulin (HCC); Hyperlipidemia associated with type 2 diabetes mellitus (HCC); Hypertension associated with type 2 diabetes mellitus (HCC) Discharge Disposition: Discharge to home or self care 07/19/2024 11:30 AM MARKETING INFORMATION MANAGER Lab [facility] Outpatient Lab at [address] [phone] Type 2 diabetes mellitus with hyperglycemia, with long-term current use of insulin (HCC) (Primary Dx) 07/19/2024 11:00 AM MARKETING INFORMATION MANAGER Office Visit [facility] [address] [place] [phone] Tasneem Prather NP Type 2 diabetes mellitus with hyperglycemia, with long-term current use of insulin (HCC) (Primary Dx); Hypertension associated with type 2 diabetes mellitus (HCC); Hyperlipidemia associated with type 2 diabetes mellitus (HCC); Diabetic polyneuropathy associated with type 2 diabetes mellitus (CMS/HCC) (HCC); Hypothyroidism, unspecified type 06/28/2024 Telephone [facility] [address] [place] [phone] Tasneem Prather NP Forms/questionnaires ([facility]) from Last 3 Months Allergies Active Allergy Reactions Criticality Noted Date Comments Codeine Rash Medium 12/25/2023 Hydrocodone-Acetaminophe n Hives,Itching,Swell ing,Rash High 11/21/2016 Throat swelled,hives,troub le breathing Iodinated Contrast Media Unknown,Rash Medium Empagliflozin Diarrhea Medium 06/18/2022 Meperidine Rash Medium 12/25/2023 Qpiczkgwrrjx-Wdz-Jlyrbwt e Unknown 12/25/2023 Semaglutide Diarrhea,Stomach upset High [...] hyperglycemia, with long-term current use of insulin ([facility]) Use as directed for low blood sugar. [...] hyperglycemia, with long-term current use of insulin ([facility]) Use daily or as directed for monitoring of diabetes 1 kit 09/25/19 24 Active blood glucose diagnostic (OneTouch Ultra Test) stripIndications:T ype 2 diabetes mellitus with hyperglycemia, with long-term current use of insulin ([facility]) USE TO TEST BLOOD SUGAR FOUR TIMES [...] 11/06/19 24 Active blood-glucose meter,continuous (Dexcom G6 Veterinary Surgery Technician) miscIndications:Ty pe 2 diabetes mellitus with hyperglycemia, with long-term current use of insulin ([facility]) Continuous glucose monitor. Current dog walker not alerting to low readings 1 each 02/11/20 24 Active Dexcom G6 Sensor deviceIndications: Type 2 diabetes mellitus with hyperglycemia, with long-term current use of insulin ([facility]) Dx: E11.65 insulin dependent. Change sensor every 10 days. 9 each 3 02/11/20 24 Active Additional Information Patient not taking.Reported on 07/19/2024 Dexcom G6 Transmitter deviceIndications: Type 2 diabetes mellitus with hyperglycemia, with long-term current use of insulin ([facility]) Dx: E11.65 insulin dependent. Change transmitter every [...] associated with type 2 diabetes mellitus (CMS/HCC) ([facility]) Take 1 capsule (300 mg total) by mouth 3 (three) times a day 270 capsule 3 04/01/20 24 025 Active metFORMIN (GLUCOPHAGE) 500 mg tabletIndications: Type 2 diabetes mellitus with hyperglycemia, with long-term current use of insulin ([facility]) Take 1 tablet (500 mg total) by mouth 2 (two) times a day with meals 180 tablet 3 04/01/20 24 025 Active Additional Information Patient not taking.Reported on 07/19/2024 lancets (OneTouch Delica Plus Lancet) 30 gauge miscIndications:Ty pe 2 diabetes mellitus with hyperglycemia, with long-term current use of insulin ([facility]) USE TO TEST BLOOD SUGAR LEVELS FOUR TIMES DAILY 100 each 3 07/01/20 24 Active blood-glucose sensor (DEXCOM G7 SENSOR MIS) Active glimepiride (AMARYL) 4 mg tabletIndications: type 2 diabetes mellitus Take 1 tablet (4 mg total) by mouth 2 (two) times a day before lunch and dinner 180 tablet 3 07/19/19 25 026 Active insulin glargine (LANTUS) 100 unit/mL (3 mL) pen for injectionIndicatio ns:Type 2 diabetes mellitus with hyperglycemia, with long-term current use of insulin ([facility]) Inject 75 Units under the skin every morning 75 mL 3 07/19/19 25 026 Active insulin lispro (HumaLOG) 100 unit/mL pen for injectionIndicatio ns:type 2 diabetes mellitus Inject 60-75 Units under the skin 3 (three) times a day before meals 205 mL 3 07/19/19 25 026 Active pen needle, diabetic (BD Lily 2nd Gen Pen Needle) 32 gauge x 5/32 needleIndications: Type 2 diabetes mellitus with hyperglycemia, with long-term current use of insulin ([facility]) Use to inject insulin 5-6 times/day 180 each 07/19/19 Active Active Problems Problem Noted Date Diagnosed Date Morbid (severe) obesity due to excess calories 0 02/11/2024 Body mass index 40.0-44.9, adult ([facility]) 02/10 Class 3 severe obesity due t o excess calories with serious comorbidity and body mass index (BMI) of 40.0 to 44.9 in adult 02/11/2024 Assessment & Plan (02/11/2024 11:14 AM CDT): Discussed healthy diet and importance of regular physical activity (20- 30min/day, 150min/wk). Using recumbent exercise bike 2x/day (30 & 15 minutes). Diabetic polyneuropathy asso ciated with type 2 diabetes mellitus ([facility]) 02/11/2024 Assessment & Plan (07/19/2024 10:58 AM MARKETING INFORMATION MANAGER): Chronic problem. Currently taking Gabapentin 300mg tid. [...] 09/25/2023 Assessment & Plan (07/19/2024 10:58 AM MARKETING INFORMATION MANAGER): Chronic problem. Currently taking Levothyroxine: 1 tab/100mcg [...] mychart. Aware to check results/results letter in [employer]. Will contact by phone if needed. Assessment & Plan (02/11/2024 4:26 PM CDT): Chronic problem. Last TSH increased to 10.50, T4 low end of normal (0.92). was to change levothyroxine: 1 tab/100mcg Friday through Friday & 1.5/150mcg on Sundays but did not. Never repeated labs. TFTs will be drawn before leaving today. Verified that she uses mychart. Aware to check results/results letter in [employer]. Will contact by phone if needed. Assessment & Plan (09/25/2023 11:57 AM CDT): Chronic problem. Currently taking levothyroxine 100mcg daily. Has been taking w/food & other meds. Reviewed medication scheduling: aware to take 1st thing in morning, 30-60 minutes before food/drink/other medications. TFTs will be drawn before leaving today. Verified that she uses [facility]. Aware to check results/results letter in [employer]. Will contact by phone if needed. Class 2 severe obesity due t o excess calories with serious comorbidity and body mass index (BMI) of 35.0 to 35.9 in adult 08/20/2022 Assessment & Plan (08/20/2022 10:51 AM MARKETING INFORMATION MANAGER): Discussed healthy diet and importance of regular physical activity (20- 30min/day, 150min/wk). Discussed stationary exercises (leg lifts, arm weights/resistance) while she is dealing with R knee issues & left foot fracture. Hypertension associated with type 2 diabetes roger litus 02/27/2022 Assessment & Plan (07/19/2024 10:58 AM MARKETING INFORMATION MANAGER): Chronic problem, well controlled on Lisinopril/hctz 20/12.5mg. Will update labs. Verified that she uses [facility]. Aware to check results/results letter in [employer]. Will contact by phone if needed. Assessment [...] lisinopril Assessment & Plan (08/19/2022 3:00 PM MARKETING INFORMATION MANAGER): Chronic problem, well controlled on current regimen. Lisinopril/hctz 20/12.5mg. No changes at this time. Assessment & Plan (06/18/2022 12:44 PM MARKETING INFORMATION MANAGER): Chronic, well controlled Importance of low salt diet and exercise were discussed Continue current meds Update MA Assessment & Plan (02/28/2022 1:44 PM CDT): Controlled on current medications, no changes. Hyperlipidemia associated with type 2 diabetes julien lisa 02/27/2022 Assessment & Plan (07/19/2024 10:58 AM MARKETING INFORMATION MANAGER): Chronic problem, well controlled on current Rosuvastatin 40mg & fenofibrate 160mg daily. Last lipid panel: 06/10/23 LDL=70, QV=778. Will update labs. Verified that she uses [facility]. Aware to check results/results letter in [employer]. Will contact by phone if needed. Assessment & Plan (04/01/2024 9:41 AM CDT): Chronic problem, well controlled on current Rosuvastatin 40mg & fenofibrate 160mg daily. Last lipid panel: 06/10/23 LDL=70, RL=071. Assessment & Plan (02/11/2024 11:04 AM CDT): Chronic problem, well controlled on current Rosuvastatin 40mg & fenofibrate 160mg daily. Last lipid panel: 06/10/23 LDL=70, XG=007. Assessment & Plan (09/25/2023 11:10 AM CDT): Chronic problem, well controlled on current Rosuvastatin 40mg & fenofibrate 160mg daily. Last lipid panel: 06/10/23 LDL=70, VE=117. Assessment & Plan (03/18/2023 4:36 PM CDT): Chronic, well-controlled Continue statin therapy with rosuvastatin Assessment & Plan (08/19/2022 2:59 PM MARKETING INFORMATION MANAGER): Chronic problem, well controlled on current rosuvastatin 40mg daily. Last lipid panel 10/25/21: LDL=55, QN=046. No changes at this time. Assessment & Plan (02/28/2022 1:44 PM CDT): Chronic problem. On statin therapy, no changes. Type 2 diabetes mellitus wit h hyperglycemia, with long-term current use of insulin 05/03/2021 Assessment & Plan (07/19/2024 11:20 AM MARKETING INFORMATION MANAGER): Chronic problem, uncontrolled. A1c improved slightly from [...] Will update labs. Verified that she uses [employer]. Aware to check results/results letter in [employer]. Will contact by phone if needed. DM eye exam [facility] [place]. Will send 2nd request letter. Discussed with [...] UTD on labs. DM eye exam 11/2023 [facility] [place]. Will send 2nd request letter. Discussed with [...] UTD on labs. DM eye exam 11/2023 [facility] [place]. Discussed with Hannah Mejia: Limited currently d/t [...] CMP lab today. Verified that she uses [facility]. Aware to check results/results letter in [employer]. Will contact by phone if needed. To call to make a diabetic eye exam. Had appt 10/2022 at [facility]--letter sent to get copy of report. [...] infection. Assessment & Plan (06/10/2023 1:04 PM MARKETING INFORMATION MANAGER): Continues to be uncontrolled Insulin regimen, explained [...] If Assessment & Plan (08/20/2022 10:52 AM MARKETING INFORMATION MANAGER): Chronic problem, uncontrolled. Has had steroid injections [...] CMP lab today. Verified that she uses [facility]. Aware to check results/results letter in [employer]. Will contact by phone if needed. To call to make a diabetic eye exam. Letter sent to [facility] to get copy of eye exam from 11/2021. Assessment & Plan (06/18/2022 12:44 PM MARKETING INFORMATION MANAGER): Uncontrolled Jardiance d/c Continue Metformin Insulin regimen [...] work on diet and activity as tolerated. Social History Tobacco Use Types Packs/Day Years Used Date Smoking Tobacco: Never Smokeless Tobacco: Never PHQ-2 Answer Date Recorded PHQ-2 Total Score (If total score is 3 or more points, staff should administer the PHQ-9) 0 06/10/2023 Comments Unknown Sex and Gender Information Value Date Recorded Sex Assigned at Not on file Legal Sex Female 2:31 PM MARKETING INFORMATION MANAGER Gender Identity Not on file Sexual Orientation Not on file Last Filed Vital Signs Vital Sign Reading Time Taken Comments Blood Pressure 140/74 07/19/2024 10:38 AM MARKETING INFORMATION MANAGER Pulse 76 07/19/2024 10:38 AM MARKETING INFORMATION MANAGER Temperature - - Respiratory Rate 18 07/19/2024 10:38 AM MARKETING INFORMATION MANAGER Oxygen Saturation - - Inhaled Oxygen Concentration - - Weight 103 kg (227 lb) 07/19/2024 10:38 AM MARKETING INFORMATION MANAGER Height 157.5 cm (5' 2.01 ) 07/19/2024 10:[address] Body Mass Index 41.51 07/19/2024 10:38 AM MARKETING INFORMATION MANAGER Plan of Treatment Not on file Procedures Procedure Name Priority Date/Time Associated Diagnosis Comments EGFR Routine 07/19/2024 11:32 AM MARKETING INFORMATION MANAGER Type 2 diabetes mellitus with hyperglycemia, with long-term current use of insulin (HCC) Hypertension associated with type 2 diabetes mellitus (HCC) CHOLESTEROL, LDL, DIRECT Routine 07/19/2024 11:32 AM MARKETING INFORMATION MANAGER Type 2 diabetes mellitus with hyperglycemia, with long-term current use of insulin (HCC) Hyperlipidemia associated with type 2 diabetes mellitus (HCC) ALBUMIN CREATININE RATIO, URINE Routine 07/19/2024 11:32 AM MARKETING INFORMATION MANAGER Type 2 diabetes mellitus with hyperglycemia, with long-term current use of insulin (HCC) COMPREHENSIVE METABOLIC PANEL Routine 07/19/2024 11:32 AM MARKETING INFORMATION MANAGER Type 2 diabetes mellitus with hyperglycemia, with long-term current use of insulin (HCC) Hypertension associated with type 2 diabetes mellitus (HCC) LIPID PANEL Routine 07/19/2024 11:32 AM MARKETING INFORMATION MANAGER Type 2 diabetes mellitus with hyperglycemia, with long-term current use of insulin (HCC) Hyperlipidemia associated with type 2 diabetes mellitus (HCC) TSH Routine 07/19/2024 11:32 AM MARKETING INFORMATION MANAGER Hypothyroidism, unspecified type T4, FREE Routine 07/19/2024 11:32 AM MARKETING INFORMATION MANAGER Hypothyroidism, unspecified type POCT GLUCOSE Routine 07/19/2024 10:42 AM MARKETING INFORMATION MANAGER Type 2 diabetes mellitus with hyperglycemia, with long-term current use of insulin (HCC) POCT HEMOGLOBIN A1C Routine 07/19/2024 1 0:42 AM MARKETING INFORMATION MANAGER Type 2 diabetes mellitus with hyperglycemia, with long-term current use of insulin (HCC) DIABETES EYE EXAM Routine 12/04/2022 from Last 3 Months or Most Recently Relevant to Health Maintenance Results * eGFR (07/19/2024 11:32 AM MARKETING INFORMATION MANAGER) [facility] eGFR >90 >=60 mL/min/1. 73 m2 Comment: [...] reviewed 2021. Blood 07/19/2024 11:3 2 AM MARKETING INFORMATION MANAGER 07/19/2024 5:18 PM MARKETING INFORMATION MANAGER us Tasneemdamon Prather RENDERER LAB BLOOD ORDERABLES Carolann l Result Performing Organization Address [facility] Co de Phone Number ALEX [place] [address] [address] [place] [address] * Albumin Creatinine Ratio, Urine (07/19/2024 11:32 AM MARKETING INFORMATION MANAGER) Albumin Ur 18.2 mg/L Comment: Interpretive Data No reference range established. Current interpretive data was last revised 2018. Creatinine Ur 92.3 mg/dL [facility] Comment: Interpretive Data No reference range established. Current interpretive data was last revised 2018. Albumin Creatinine Ratio, Ur 20 1 - 29 mg/g ALEX Urine 07/19/2024 11:3 2 AM MARKETING INFORMATION MANAGER 07/19/2024 5:00 PM MARKETING INFORMATION MANAGER us Tasneemdamon Prather RENDERER LAB URINE ORDERABLES Carolann l Result Performing Organization Address [facility] Co de Phone Number ALEX [place] [address] [address] [place] [address] * (ABNORMAL) TSH (07/19/2024 11:32 AM MARKETING INFORMATION MANAGER) Pathologist [facility] Thyroid Stimulating Hormone 7.23(H) 0.30 - 4.20 mcIUnit/mL Blood 07/19/2024 11:3 2 AM MARKETING INFORMATION MANAGER 07/19/2024 5:00 PM MARKETING INFORMATION MANAGER us Tasneemdamon Prather RENDERER LAB BLOOD ORDERABLES Carolann l Result Performing Organization Address [facility] Co de Phone Number ALEX L[place] [address] [address] [place] [address] * (ABNORMAL) T4, free (07/19/2024 11:32 AM MARKETING INFORMATION MANAGER) Free T4 0.78(L) 0.90 - 1.70 ng/dL Blood 07/19/2024 11:3 2 AM MARKETING INFORMATION MANAGER 07/19/2024 5:00 PM MARKETING INFORMATION MANAGER Tasneemdamon Prather RENDERER LAB BLOOD ORDERABLES Carolann l Result Performing Organization Address City/[facility]/ZIP Co de Phone Number ALEX [place] [address] [address] [place] [address] * Cholesterol, LDL, direct (07/19/2024 11:32 AM MARKETING INFORMATION MANAGER) LDL Cholesterol, Direct 104 <=129 mg/dL Comment: [...] on 2018. Blood 07/19/2024 11:3 2 AM MARKETING INFORMATION MANAGER 07/19/2024 5:18 PM MARKETING INFORMATION MANAGER Narrative ALEX - 07/19/2024 5:53 PM MARKETING INFORMATION MANAGER Cholesterol, LDL, direct reflexed based on Elevated Triglyceride (>400) us Tasneem Prather RENDERER LAB BLOOD ORDERABLES Carolann l Result Performing Organization Address City/[facility]/ZIP Co de Phone Number PATTIESENG L[place]SF[place] [address] [address] [facility] [place], [place] [id number] * (ABNORMAL) Lipid panel (07/19/2024 11:32 AM MARKETING INFORMATION MANAGER) Cholesterol 222(H) 30 - 199 mg/dL Comment: [...] [facility]ERNER [facility] Blood 07/19/2024 11:3 2 AM MARKETING INFORMATION MANAGER 07/19/2024 5:00 PM MARKETING INFORMATION MANAGER us Tasneem Prather NP LAB BLOOD ORDERABLES Carolann l Result [facility] [address] [address] Department [place] [address] * (ABNORMAL) Comprehensive metabolic panel (07/19/2024 11:32 AM MARKETING INFORMATION MANAGER) Sodium 139 135 - 145 mmol/L Potassium, pl 3.7 3.3 - 4.9 mmol/L [facility] Chloride 103 97 - 110 mmol/L [facility] CO2 23 22 - 32 mmol/L [facility] Anion gap 13 2 - 15 mmol/L [facility] BUN 12 6 - 25 mg/dL [facility] Creatinine 0.71 0.60 - 1.10 mg/dL [facility] Glucose 236(H) 70 - 199 mg/dL [facility] Comment: Interpretive Data Fasting glucose >/= 126 [...] Calcium 9.9 8.5 - 10.3 mg/dL [facility] Bilirubin, total 0.5 0.1 - 1.2 mg/dL [facility] Protein, pl 6.5 6.5 - 8.5 g/dL [facility] Albumin 4.1 3.5 - 5.0 g/dL [facility] Alk phos 73 40 - 130 Units/L [facility] ALT 25 7 - 45 Units/L [facility] AST 23 10 - 45 Units/L [facility] Blood 07/19/2024 11:3 2 AM MARKETING INFORMATION MANAGER 07/19/2024 5:00 PM MARKETING INFORMATION MANAGER us Tasneem Prather RENDERER LAB BLOOD ORDERABLES Carolann l Result [facility] [address] [address] [place] [address] * (ABNORMAL) POCT hemoglobin A1c (07/19/2024 10:42 AM MARKETING INFORMATION MANAGER) Hemoglobin A1C, POC 8.2 4.0 - 5.6 % Blood 07/19/2024 10:4 2 AM MARKETING INFORMATION MANAGER us Tasneem Prather RENDERER POINT OF CARE TEST ORDERA BLES Final Result * (ABNORMAL) POCT glucose (07/19/2024 10:42 AM MARKETING INFORMATION MANAGER) Glucose Blood, POC 227 mg/dL Blood 07/19/2024 10:4 2 AM MARKETING INFORMATION MANAGER Tasneem Prather RENDERER POINT OF CARE TEST ORDERA BLES Final Result * DIABETES EYE EXAM (12/04/2022) 12/04/2022 Historical Provider HEALTH MAINTENANCE Edited Result - Final from Last 3 Months or Most Recently Relevant to Health Maintenance Insurance MEDICARE [employer] [facility] MEDICARE Address: [address] [phone] Care Teams Packing Room Inspector Relationship Specialty Start Date End Date Adolfo Lyn PA [facility] [address] PCP - General Internal Medicine 04/01/24
--- NOTE | 2024-08-26 12:15 | ECG_ITS ---
Test Date: 2024-08-26 12:32:21 Measurements Intervals [place] Rate: 68 P: 49 IL: 137 QRS: 62 QRSD: 135 T: 30 QT: 420 QTc: 449 Interpretive Statements SINUS RHYTHM POSSIBLE LEFT ATRIAL ENLARGEMEN RIGHT BUNDLE BRANCH BLOCK BASELINE WANDER- I, II, III, AVR, AVL, AVF ABNORMAL ECG No previous ECG available for comparison Electronically Signed On 08-26-2024 12:50:40 RESPITE PROVIDER by Matt Jason D.O.
[2024-08-26 12:56] LABS: Basophils Percent Auto 0.5 % (0.2-1.2); Eosinophils Absolute Auto 0.2 K/mm3 (0-0.3); Hemoglobin 12.7 g/dL (12.0-15.0); Immature Granulocyte Absolute 0.05 K/mm3 (0.00-0.031); Immature Granulocyte Percent A 0.7 % (0-0.5); Lymphocytes Percent Auto 28.7 % (18.3-44.2); Mean Corpuscular Hemoglobin 27.8 pg (26-34); Mean Corpuscular Volume 89.7 fl (80-100); Mean Platelet Volume 10.8 fl (7.4-10.4); Monocytes Absolute Auto 0.5 K/mm3 (0.1-0.6); Monocytes Percent Auto 6.4 % (2.6-8.5); Neutrophils Absolute Auto 4.5 K/mm3 (1.3-6.7); Neutrophils Percent Auto 61.7 % (45.5-73.1); Platelet Count Result 185 k/mm3 (150-375); Red Blood Count 4.57 M/mm3 (4.2-5.4); Red Cell Distribution Width 14.5 % (11.5-14.5); White Blood Count 7.3 K/mm3 (4.5-10.0)
[2024-08-26 13:02] LABS: Add Urine Microscopic? YES; Appearance Urine Clear (Clear); Bacteria Urine None Seen /hpf; Bilirubin Urine Negative (Negative); Blood Urine Trace (Negative); Color Urine Yellow (Yellow); Glucose Urine UA 2+ mg/dL (Negative); Ketones Urine Negative (Negative); Leukocyte Esterase Ur Negative LEU/UL (Negative); Nitrate Urine Negative (Negative); Non Pathogenic Casts 0-2; Protein Urine Negative (Negative); RBC Urine 0-2 /hpf (0-2); Specific Grav Ur 1.019 (1.001-1.035); Squamous Epithelial Cell Urine None Seen /hpf (Few); Urobilinogen Urine 0.2 mg/dL (<2.0); WBC Urine 0-5 /hpf (0-3)
[2024-08-26 13:20] LABS: Anion Gap 10 mmol/L (4-12); Blood Urea Nitrogen 24 mg/dL (7-17); Calcium 10.2 mg/dL (8.4-10.2); Carbon Dioxide 23 mmol/L (22-30); Chloride 105 mmol/L (98-107); Estimated Glomerular Filt Rate > 60; Glucose 176 mg/dL (65-110); Sodium 138 mmol/L (137-145)
== END 2024-08-26 11:47 | disposition home or self-care (01) ==
LOC: ANHLAB 11:50
PROVIDERS: PCP Physician Assistant; Visit Provider Orthopaedic Surgery
DX: S49.91XA Unspecified injury of right shoulder and upper arm, initial encounter (principal); S59.901A Unspecified injury of right elbow, initial encounter; X58.XXXA Exposure to other specified factors, initial encounter; I10 Essential (primary) hypertension; R53.83 Other fatigue
CPT/HCPCS: 36415; 73030; 73080; 80048; 81001; 85025; 93005

== ENCOUNTER 2024-11-17 08:46 | Outpatient (CLI) | payer MEDICARE, MEDICAID, SELFPAY ==
--- NOTE | ~2024-11-17 | XR_ITS ---
Clinical Indication: Preoperative clearance PA and lateral views of the chest: Comparison: 12/20/2011 Findings: The lungs are clear, without evidence of focal consolidation or pleural effusion. Cardiome diastinal silhouette is within normal limits. Prior left clavicular ORIF noted. Impression: No acute reality. Clear lungs. Reviewed, dictated and finalized at location . Impression: No acute reality. Clear lungs.
--- OUTSIDE RECORDS SUMMARY | 2024-11-17 08:56 | XMS_ITS | CONTINUITY OF CARE DOCUMENT ---
Author Name ambrose, ambrose Address Unknown Organization [facility] Address [address] [place] [address] Phone [phone] Care Team Providers Care Spiral Winder Name Role Phone Beto Andrews MD Unavailable RONDA LOUIE Unavailable [phone] SAY CORNELL MD Unavailable PROBLEMS Condition Status Date Provider Notes Hypertension active Edmond Witt MD Diabetes mellitus active Edmond Witt MD Hypercholesterolemia active Edmond Witt MD Chest pain-type to be determined active Edmond Witt MD RBBB active Edmond Witt MD Left atrial enlargement active Edmond Witt MD Tobacco use quit active Edomnd Witt MD Leg cramps, bilateral active Edmond Witt MD Shortness of breath active Edmond Witt MD Obesity active Edmond Witt MD Cardiology examination active Beto magallanes MD Preoperative cardiovascular examination active Beto Andrews MD Abnormal EKG active Beto Andrews MD ENCOUNTERS Date Type Provider Location Encounter Diag nosis 2 - 3 In-person encounter Office Visit Beto Andrews MD [facility] Cardiology examinationPreoperative cardiovascular examinationAbnormal EKG 1 - 3 In-person encounter Office Visit Edmond Witt MD [facility] HypertensionDiabetes mellitusHypercholesterolemiaChest pain-type to be determinedRBBBLeft atrial enlargementTobacco use quitLeg cramps, bilateralShortness of breathObesity VITAL SIGNS Date Observation Value Provider Body Mass Index (Ratio) 41.09 kg/m2 Karis gaby [place] blood pressure, diastolic 79 mm[Hg] Ge bridgette Andrews MD blood pressure, systolic 153 mm[Hg] Yoshi fely Andrews MD oxygen saturation, oximetry 97 % eBto Andrews MD respiratory rate E&M 12 /min Beto Andrews MD pulse rate 63 /min Beto Andrews MD weight E&M 232 [lb_av] Beto Andrews MD height E&M 63 [in_i] Cris Herrmann blood pressure, cuff size regular An silvia Herrmann blood pressure, diastolic, left arm 85 mm [Hg] Renee Bryant blood pressure, systolic, left arm 132 mm [Hg] Renee Bryant blood pressure, diastolic, right arm 88 m m[Hg] Renee Bryant blood pressure, systolic, right arm 156 m m[Hg] Renee Bryant blood pressure, diastolic 85 mm[Hg] Hi meg Manny blood pressure, systolic 132 mm[Hg] Grace Bryant pulse rate 74 /min Renee Bryant oxygen saturation, oximetry 93 % Renee Bryant respiratory rate E&M 16 /min Renee Bryant Body Mass Index (Ratio) 35.96 kg/m2 Emani Bryant height E&M 63 [in_i] Renee Bryant weight E&M 203 [lb_av] Renee Bryant ALLERGIES Allergy Name Onset Date Reaction Criticality Status NORGESIC FORTE Low Criticality activ e CODEINE Low Criticality active DEMEROL Low Criticality active RESULTS Date Observation Value Provider Reference Range Interpretation Location 3 LDL cholesterol, serum 92 mg/dL Edmond Witt MD HISTORY OF MEDICATION USE Medication Status Instructions Dates Provider Indications Com ments Hope Cade U-100 Insulin 100 unit/mL (3 mL) insulin pen active Beto Scherer KwikPen Insulin 100 unit/mL insulin pen active Beto Andrews MD Januvia 100 mg tablet active Beto Andrews MD aripiprazole 2 mg tablet active Beto Andrews MD fenofibrate 160 mg tablet active Beto Andrews MD rosuvastatin 40 mg tablet active Beto Andrews MD gabapentin 300 mg capsule active Beto Andrews MD glimepiride 4 mg tablet active Beto Andrews MD famotidine 20 mg tablet active Beto Andrews MD levothyroxine 100 mcg tablet active Beto Andrews MD sertraline 100 mg tablet active Beto Andrews MD sulfasalazine 500 mg tablet active Beto Andrews MD Qsymia 7.5-46 mg capsule, ER multiphase 24 hr completed 1 tablet once a day 1 - 2 Beto Andrews MD Qsymia 3.75-23 mg capsule, ER multiphase 24 hr completed 1 tablet once a day 1 - 2 Beto Andrews MD RANITIDINE HCL 150 MG ORAL CAPSULE completed 1 tablet twice a day - 2 Beot Andrews MD GLUCOPHAGE 1000 MG ORAL TABLET completed 1 tablet twice a day - 2 Beto Andrews MD levothyroxine 100 mcg tablet completed once a day - 2 Beto Andrews MD Zoloft 100 mg tablet completed once a day - 2 Beto Andrews MD fenofibrate micronized 134 mg capsule completed once a day - 2 Beto Andrews MD PRAVACHOL 20 MG ORAL TABLET completed once a day - 2 Beto Andrews MD lisinopril-hydroc hlorothiazide 20-12.5 mg tablet completed once a day - 2 Beto Andrews MD glimepiride 1 mg tablet completed once a day - 2 Beto Andrews MD glimepiride 2 mg tablet completed once a day - 2 Beto Andrews MD SOCIAL HISTORY Date Observation Value Provider smoking, year quit 2005 Beto lester MD smoking, date started 1972 Beto Andrews MD smoking history, tot al pack/day 1 Beto Andrews MD cigarette use yes Beto Andrews MD smoking status Former smoker Beto Castellon ra, MD social history E&M Smoking Histo ry: Moraima ames is a former smoker. Edmond Witt MD social history reviewed E&M revi ewed - no changes required Edmond Witt MD smoking, date started 1972 Connie Bryant smoking history, tot al pack/day 1 Renee Bryant smoking, year quit 2005 Renee ma cigarette use yes Renee Bryant smoking status Former smoker Renee Bryant FAMILY HISTORY Family Member Condition Full Brother Family History of Co ronary Artery Disease: Father Family History of Co ronary Artery Disease: Father Family History of Di abetes: Mother Family History of Co ronary Artery Disease: Mother Family History of Hy pertension: Mother Family History of Hy perlipidemia: Mother Family History of Di abetes: INSURANCE PROVIDERS Payer name Policy type / Coverage type [place] [employer] [id number] [id number] (PPO C-SNP) [employer] insurance [employer] [id number] TREATMENT PLAN Date Name Performer Cardiology: T he following medications were removed from the medication list: Lisinopril-hydrochlorothiazide 20-12.5 Mg Tablet (Lisinopril-hydrochlorothiazide) ..... Once a day Beto Andrews MD Cardiology Beto Jones Cardiology: T shashi following medications were removed from the medication list: Fenofibrate Micronized 134 Mg Capsule (Fenofibrate micronized) ..... Once a day Her updated medication list for this problem includes: Fenofibrate 160 Mg Tablet (Fenofibrate) Rosuvastatin 40 Mg Tablet (Rosuvastatin) Beto Andrews MD Cardiology: n eeds echo and stress Beto Andrews MD Cardiology:This visi t has been a part of the consistent, comprehensive, and ongoing management of the chronic medical condition(s) listed above for the patient. BP today: 153/79 P rior BP: 132/85 (10/16/2015) Labs Reviewed: L DL: 92 (08/19/2015) The following medications were removed from the medication list: Lisinopril-hydrochlorothiazide 20-12.5 Mg Tablet (Lisinopril-hydrochlorothiazide) ..... Once a day Beto Andrews MD Cardiology: T he following medications were removed from the medication list: Glimepiride 2 Mg Tablet (Glimepiride) ..... Once a day Glimepiride 1 Mg Tablet (Glimepiride) ..... Once a day Lisinopril-hydrochlorothiazide 20-12.5 Mg Tablet (Lisinopril-hydrochlorothiazide) ..... Once a day Her updated medication list for this problem includes: Lantus Solostar U-100 Insulin 100 Unit/ml (3 Ml) Insulin Pen (Insulin glargine) Humalog Kwikpen Insulin 100 Unit/ml Insulin Pen (Insulin lispro) Januvia 100 Mg Tablet (Sitagliptin phosphate) Glimepiride 4 Mg Tablet (Glimepiride) Beto Andrews MD Cardiology:Her [facility] ed medication list for this problem includes: Glucophage 1000 Mg Oral Tabs (Metformin hcl) ..... One tablet twice daily Lisinopril-hydrochlorothiazide 20-12.5 Mg Oral Tabs (Lisinopril-hydrochlorothiazide) ..... Once daily Glimepiride 1 Mg Oral Tabs (Glimepiride) ..... Once daily Glimepiride 2 Mg Oral Tabs (Glimepiride) ..... Once daily Edmond Witt MD Cardiology:LDL: 92 ( 08/19/2015) Her updated medication list for this problem includes: Fenofibrate Micronized 134 Mg Oral Caps (Fenofibrate micronized) ..... Once daily Pravachol 20 Mg Oral Tabs (Pravastatin sodium) ..... Once daily Edmond Witt MD Cardiology:BP today: 132/85 Her updated medication list for this problem includes: Lisinopril-hydrochlorothiazide 20-12.5 Mg Oral Tabs (Lisinopril-hydrochlorothiazide) ..... Once daily Edmond Witt MD Cardiology:BMI is 35 .96 and she would like to try Qsymia. Edmond Witt MD Cardiology:Complains of leg cramps. O rders: A rterial Duplex Bi-Lower EX (CPT-33028) Edmond Witt MD Cardiology:Symptoms associated with chest pain include SOB. O rders: C omplete Echo (CPT-01697) S TR - Nuclear ([id number]) Edmond Witt MD Cardiology: This is a 55 years old female who presents with CHEST PAIN EVALUATION. The patient complains of chest pain at rest and chest pain with exercise. Location of pain is substernal and occuring randomly. Pain radiates to none. Pain feels like pressure. Pain is worse with no provocation. Symptoms associated with pain include shortness of breath, fatigue and excessive snoring. O rders: C omplete Echo (CPT-63283) S TR - Nuclear ([id number]) Edmond Witt MD Date Name Stress Regadenoson Complete Echo Arterial Duplex Bi-L ower EX Sleep Study Home STR - Nuclear Complete Echo HISTORY OF PROCEDURES Procedure Date Procedure Name Provider Procedure Notes S tatus EKG Beto Andrews MD complet ed Stress EKG Edmond Witt MD completed Regadenoson, 4 units Edmond Witt MD completed Cardiolite, 2 units Edmond Witt MD c ompleted SPECT Images Ryan Maza MD complet ed SNOMED-CT: 414558898 Smoking Cessation Counseling Edmond Witt MD completed SNOMED-CT: 11186911 Physical Exam, Performed: Pulse Exam of Foot Edmond Witt MD completed EKG Edmond Witt MD completed SNOMED-CT: [id number] Current Medications Documented Edmond Witt MD completed
--- OUTSIDE RECORDS SUMMARY | 2024-11-17 08:57 | XMS_ITS | Data Portability ---
Author Organization [facility] [employer], Main Office Address [address] [place] [address] Assessment No assessment recorded. Plan of Treatment Reminders Order Date Submit Date Provider Last Modified By Organization Details Last Modified Time Details Appointments Any 2024 08:00A JANIE Rizzo Not available Not available Not available Lab unlisted lab - aerobic bacterium id/sensit iv [address] (Lab), [address] [place], [address], 05/14/2024 08:45:16 culture, anaerobic [address] (Lab), [address] [place], [address], 05/14/2024 08:45:16 glycohemo globin, total, blood 2023 024 [facility] (Lab), [address] [place], [address], 12/17/2023 15:52:21 Referral gastroent erologist referral - Please re-evalua te and treat. Please call patient to schedule an appointme nt. n/v for 2 weeks. Thank you. 2023 024 [email or web address] Toro Staton MD, [address] [facility], [address], [place], [address], 07/05/2024 08:47:55 Procedures None recorded. Surgeries None recorded. Imaging XR, elbow, 3 or more view 2024 025 [email or web address] [facility], [address], [address], [place], [address], 08/23/2024 11:14:36 XR, shoulder, 2 or more view 2024 025 [email or web address] [facility], [address], [place], [address], 08/23/2024 11:14:35 DEXA [address] ([facility]), [address] [place], [address], 12/31/2023 12:38:23 MAMMO, screening , digital, bilateral [address] ([facility]), [address] [place], [address], 01/16/2024 09:18:19 Medication Orders Pataday Once Daily Relief 0.2 % eye drops 2024 025 [facility] [address] [place], [place], [id number], 08/11/2024 11:09:39 ciproflox acin 500 mg tablet 2023 024 [facility] #46082, [address] [place], [place], [id number], 08/11/2024 10:53:03 famotidin e 20 mg tablet 2023 024 [facility], [address] [place], [place], [id number], 05/07/2024 10:39:11 hydroxyzi ne HCl 10 mg tablet 2023 024 [facility] #64745, [address] [place], [place], [id number], 05/07/2024 10:48:34 meclizine 12.5 mg tablet 2023 [facility] #25441, [address] [place], [place], [id number], 05/07/2024 10:37:41 rosuvasta tin 40 mg tablet 2023 [facility] #11114, [address] [place], [place], [id number], 05/07/2024 10:42:36 ondansetr on 4 mg disintegr ating tablet 2023 [facility] #19905, [address] [place], [place], [id number], 05/07/2024 10:37:39 lisinopri l 20 mg-hydroc hlorothia zide 12.5 mg tablet 2023 [facility] #14257, [address] [place], [place], [id number], 05/07/2024 10:42:36 levothyro xine 100 mcg tablet 2023 [facility] #98743, [address] [place], [place], [id number], 05/07/2024 10:42:37 calcium 600 mg (as carbonate )-vitamin D3 10 mcg (400 unit) tablet 2023 [facility] #67449, [address] [place], [place], [id number], 12/17/2023 11:27:23 lisinopri l 20 mg-hydroc hlorothia zide 12.5 mg tablet 2023 024 [facility] #12493, [address] [place], [place], [id number], 12/17/2023 11:32:23 Depo-Medr ol 80 mg/mL suspensio n for injection 2023 024 Not available 08/11/2024 10:53:14 dicyclomi ne 10 mg capsule 2023 024 [facility] #25493, [address] [place], [place], [id number], 11/10/2023 11:14:27 amoxicill in 875 mg-potass ium clavulana te 125 mg tablet 2023 024 [email or web address] [address] [place], [place], [id number], 11/10/2023 10:58:48 Patient TargetsNo targets recorded. Patient Instructions Encounter Date Encounter Id Patient Instructions Last Modified By Organization Details Last Modified Time 09/29/2023 [id number] soak in dilute epsom salts 15 min daily [email or web address] Not available 10/12/2023 17:45:00 12/17/2023 [id number] dementia rating scale-2* [email or web address] Not available 01/02/2024 11:53:42 depression screening* [email or web address] Not available 01/02/2024 11:53:41 alcohol misuse* [email or web address] Not availab le 01/02/2024 11:53:41 Timed Up and Go test (TUG)* [email or web address] Not available 01/02/2024 11:53:42 multi-dimensiona l health assessment questionnaire* [email or web address] Not available 01/02/2024 11:53:42 Personalized a lt Plan and Screening Recommendations Advance Directives - Do you have one? No Advance Directives - Do we have your advance directive on file in your health record? Primary Prevention/Interven tion (prevents or decreases the chance of common diseases from occurring) Smoking Risk: Non Smoker Alcohol Misuse Screening: Negative Weight: Appropriate Overwei ght continue your current weight loss efforts try to lose 5% of your body weight try to lose 10% of your body weight Physical activity: Need more exercise/physical activity minimum of 10-20 minutes of activity that causes mild breathlessness/day minimum of 20-30 minutes activity that causes mild breathlessness/day Nutrition: Good Average Fall Risk (screened today): Low Intermediate Refer to attached handout Preventing Falls: After your Visit Recommend regular use of cane or walker Vaccines Pneumococcal: Ordered Recommended today Recommended today, but you have declined No further needed Influenza: Your next one in the fall of this year Chronic Disease Risks Stroke: Low Risk Intermediate Risk I have no recommendations Act erika diagnosis, Continue current treatment plan Heart Attack: Low risk Intermediate Risk I have no recommendations Act erika diagnosis, Continue current treatment plan Clogging of the Arteries: Low risk Intermediate Risk I have no recommendations Act erika diagnosis, Continue current treatment plan Diabetes: Low Risk Intermediate Risk Active diagnosis, Continue current treatment plan Secondary Prevention/Interven tion (detects treatable diseases before they may cause symptoms, disability, or ) Breast Cancer Screening with mammogram: Your next mammogram: Ordered Recommended today Cervical/Uterine/Ov edda Cancer Screening: No screening necessary Osteoporosis Screening: Your next DEXA in: Ordered Recomme nded today Date Screening Last Performed: Colon Cancer Screening: Colonoscopy No screening necessary Date Screening Last Performed: Eye Disease Screening: No Eye exam necessary Dementia Risk: Low I have no recommendations Depression Screening: Negative Active diagnosis, Continue current treatment plan [email or web address] Not available 12/17/2023 11:43:07 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 Please call patient to schedule an appointment. n/v for 2 weeks. Thank you. Referring Physician: Adolfo Lyn, Family Medicine, Encounter Date: 05/07/2024 Results Created Date Observation Date Name Description Value Unit Range Abnormal Flag Note LastModifiedBy Organization Detail LastModifiedTime 11/06/19 24 11/06/2023 CT, abdom en + pelvi s, w/o contr ast No observ ation record ed. [facility] [address] [place], [address], 11/06/2023 14:47:31 06/01/20 24 06/01/2024 CT, abdom en + pelvi s, w/o contr ast No observ ation record ed. [address] [facility], [place], [address], 06/01/2024 16:32:48 06/14/20 24 06/14/2024 CT, abdom en + pelvi s, w/o contr ast No observ ation record ed. [address] [facility], [place], [address], 06/25/2024 08:58:24 08/26/19 25 08/26/2024 XR, shoul myra, 2 or more view No observ ation record ed. [address] [facility] [address], [place], [address], 08/27/2024 08:51:21 11/04/19 25 08/26/2024 preop erati ve clear ance* No observ ation record ed. [email or web address] Kishore Omer MD [address] [facility] [address], [place], [address], 11/04/2024 10:20:51 Result Notes None recorded. Problems Name Problem SNOMED Code Status Onset Date Resolution Date Notes Provider Name and Address Organization Details Recorded Time Acquired trigger finger 1896969 Active Not Available [facility] 3 00:53:09 Plantar fasciitis 141052826 Active Not Available [facility] 3 00:53:09 Current tear of medial cartilage AND/OR meniscus of knee Active Not Available [facility] 3 00:53:09 Knee pain Active Not Available [facility] 3 00:53:10 Osteoarth ritis 718712069 Active Not Available [facility] 3 00:53:10 Type 2 diabetes mellitus 58348961 Active Not Available [facility] 3 00:53:10 Diabetes mellitus 75003545 Active 2019 Not Available [facility] 3 00:53:10 Intervert ebral disc prolapse 21980152 Active 2020 Not Available [facility] 3 00:53:10 Pain in limb 69944947 Active Not Available [facility] 3 00:53:10 Lipoma 32980218 Active Not Available [facility] 3 00:53:10 Essential hypertens ion 59604852 Active 2022 Salazar Lu MD [address], [address], [place], [address] , [place] [employer] [facility] 3 09:35:46 Migraine 06143871 Active 2022 Salazar Lu MD [address], [address], [place], [address] , [place] [facility] 3 09:36:59 Dizziness 533978173 Active 2022 Salazar Lu MD [address], [address], [place], [address] , [place] [facility] 3 09:37:15 Pain of right knee joint 29202141952 4100 Active 2022 Salazar Lu MD [address], [address], [place], [address] , [place] [facility] 3 11:09:49 Type 2 diabetes mellitus without complicat ion 797998158 Active 2022 Salazar Lu MD [address], [address], [place], [address] , [place] [facility] 3 11:10:23 Allergic rhinitis 92081471 Active 2022 Salazar Lu MD [address], [address], [place], [address] , [place] [facility] 3 10:39:23 Ulcerativ e colitis 92394838 Active 2022 TAMMY Kimball null, [place] - [facility] [employer] 3 15:32:21 Mixed anxiety and depressiv e disorder 152732178 Active 2022 Salazar Lu MD [address], [address], [place], [address] , [facility] [employer] [facility] [employer] 3 15:47:08 Hypertrig lyceridem ia 958163130 Active 2022 Salazar Lu MD [address], [address], [place], [address] , [employer] [facility] [employer] [facility] 3 11:03:54 Nausea 720081475 Active 2022 Salazar Lu MD [address], [address], [address] , [employer] [facility] [employer] [facility] 3 14:25:31 Acute sinusitis 72841974 Active 2022 Salazar Lu MD [address], [address], [place], [address] , [employer] [facility] [employer] [facility] 3 10:14:24 Neuropath y 224455617 Active 2022 Salazar Lu MD [address], [address], [address] , [employer] [facility] [employer] [facility] 3 11:44:58 Acid reflux 206141135 Active 2022 Salazar Lu MD [address], [address], [address] , [employer] [facility] [employer] [facility] 3 11:46:02 Restless legs 91335358 Active 2022 Salazar Lu MD [address], [address] , [facility] [employer] [facility] [employer] [facility] 3 11:47:54 Hyperlipi demia 68951242 Active 2022 Salazar Lu MD [address], [address], [place], [address] , [facility] [employer] [facility] [employer] 3 11:51:33 Screening for malignant neoplasm of breast Active 2022 JANIE Garcia [address], [address], [place], [address] , [employer] 3 10:03:49 Conjuncti vitis of left eye 35473633083 072112 Active 2023 JANIE Gracia [address], [address], [place], [address] , [employer] 4 12:21:02 Folliculi tis 10939214 Active 2023 between eyes JANIE Garcia [address], [address], [place], [address] , [employer] 4 12:13:40 Screening for osteoporo sis Active 2023 JANIE Garcia [address], [address], [place], [address] , [employer] 4 11:11:39 Acute pharyngit is 482102498 Active 2023 JANIE Garcia [address], [address], [place], [address] , [employer] 4 12:09:39 COVID-19 557716862 Active 2023 JANIE Garcia [address], [address], [place], [address] , [employer] 4 12:10:54 Labyrinth itis 03206413 Active 2023 JANIE Garcia [address], [address], [place], [address] , [employer] 4 10:35:40 Acute folliculi tis 693806969 Active 2023 umbilical JANIE Garcia [address], [address], [place], [address] , [employer] 4 10:42:21 Anxiety 51423886 Active 2023 JANIE Garcia [address], [address], [place], [address] , [employer] - [facility] 4 10:47:26 Injury of shoulder region 701897261 Active 2024 JANIE Garcia [address], [address], [place], [address] , [employer] - [facility] 5 11:05:30 Allergic conjuncti vitis 191979041 Active 2024 JANIE Garcia [address], [address], [place], [address] , [employer] - S [employer] [facility] 5 11:07:31 Administr ation of influenza vaccine Active 2024 JANIE Garcia [address], [address], [place], [address] , [employer] - S [employer] [facility] 5 11:10:23 Injury of elbow 850270568 Active 2024 JANIE Garcia [address], [address], [place], [address] , [employer] [facility] [facility] 5 11:11:59 Screening mammograp hy Active 2024 JANIE Garcia [address], [address], [place], [address] , [employer] - [facility] 5 10:54:11 Electroca rdiogram abnormal 639215535 Active 2024 JANIE Garcia [address], [address], [place], [address] , [employer] - [facility] 5 15:41:31 Preoperat erika state 72647926 Active 2024 JANIE Garcia [address], [address], [place], [address] , [facility] 5 09:20:37 Notes:Some problems listed i n Documents: #[id number], #[id number], #[id number], #[id number] could not be added to this patient's chart. Please review these documents and add these problems to the patient's chart manually as needed. Problem Notes None recorded. Procedures Surgical History Date Name Laterality Status Provider Name and Address Organization Details Recorded Time 12/17/19 Medicare Wellness CPT Code, subsequent completed Faina Renae RN [facility] [employer] [facility] 12/17/2023 10:53:15 09/04/19 24 Transitional_Car e_Management completed Ruma Hendrickson RN [facility] [employer] [facility] 09/04/2023 11:58:06 Breast Biopsy completed Not Available [facility] 09/04/2022 00:47:35 Carpal tunnel surgery completed Not Available [facility] 09/04/2022 00:47:35 release of trigger finger completed Not Available [facility] 09/04/2022 00:47:35 Hysterectomy completed Not Available [facility] 09/04/2022 00:47:35 Cyst Removal completed Not Available [facility] 09/04/2022 00:47:35 Dilation and curettage completed Not Available [facility] 09/04/2022 00:47:35 repair of elbow completed Not Available [facility] 09/04/2022 00:47:35 Imaging Results Imaging Date Name Status LastModified by Organization Details LastModified Time 11/06/2023 CT, abdomen + pelvis, w/o contrast completed [email or web address] [place] [address] [address] [place], [address], 11/06/2023 14:47:31 06/01/2024 CT, abdomen + pelvis, w/o contrast completed [address] [place], [address], 06/01/2024 16:32:48 06/14/2024 CT, abdomen + pelvis, w/o contrast completed [address] [place], [address], 06/25/2024 08:58:24 08/26/2024 XR, shoulder, 2 or more view active [place] [address] [facility] [address], [place], [address], 08/27/2024 08:51:21 08/26/2024 preoperative clearance* completed [email or web address] Kishore Omer MD [address] [facility] [address], [place], [address], 11/04/2024 10:20:51 Procedure Notes None recorded. Medical Equipment None Reported. Allergies Allergen ID Allergen Name Allergen Category Reaction Reaction Severity Criticality Documentation Date Start Date Code Code System Note Provider Name and Address Organization Details Recorded Time 1119 acetamino phen / hydrocodo ne medicatio n Not available Not available Not available 09/04/2022 18242 2 RxNorm Not Available [facility] 3 01:01:00 1120 Norgesic medicatio n Not available Not available Not available 09/04/2022 15399 6 RxNorm Not Available [facility] 3 01:01:00 1121 Iodinated contrast media (substanc e) medicatio n Not available Not available Not available 09/04/2022 34620 2004 SNOMED Not Available [facility] 3 01:01:00 1122 Demerol medicatio n Not available Not available Not available 09/04/2022 59189 1 RxNorm Not Available [facility] 3 01:01:00 1123 codeine medicatio n Not available Not available Not available 09/04/2022 2670 RxNorm Other react ions and sever ities : 'Adve rse react ion to subst ance' . Not Available [facility] 3 01:01:00 Medications Name Sig Start Date Stop Date Status Note LastModified by Organization Details LastModified Time Prescript ion - Renewal active Not Available Not Available Not Available cyclobenz aprine 10 mg tablet TAKE 1 TABLET BY MOUTH THREE TIMES A DAY active Not Available Not Available No t Available metformin 500 mg tablet TAKE 1 TABLET BY MOUTH TWICE A DAY active Not Available Not Available No t Available prednison e 10 mg tablet 04/23 completed Not Available Not Available Not Available ropinirol e 1 mg tablet TAKE 1 TABLET BY MOUTH EVERY DAY AT BEDTIME 04/03 completed Not Available Not Available Not Available sulfasala zine 500 mg tablet TAKE 1 TABLET BY MOUTH TWICE DAILY active Not Available Not Available No t Available ammonium lactate 12 % lotion 06/22 completed Not Available Not Available Not Available cetirizin e 10 mg tablet TAKE 1 TABLET BY MOUTH EVERY DAY 2022 active Not Available Not Available Not Av[employer] lisinopri l 20 mg-hydroc hlorothia zide 12.5 mg tablet TAKE 1 TABLET BY MOUTH EVERY DAY 2023 active Not Available Not Available Not Avai [employer]able pravastat in 40 mg tablet active Not Available Not Available Not Available Glucagon Emergency Kit 1 mg solution for injection active Not Available Not Available No t Available benzonata te 200 mg capsule Take 1 capsule 3 times a day by oral route. completed Not Available Not Available Not Available hydrocodo ne 5 mg-acetam inophen 325 mg tablet 09/30 completed Not Available Not Available Not Available ondansetr on HCl 8 mg tablet Take 1 tablet 3 times a day by oral route as needed. 05/07 completed Not Available Not Available Not Available ondansetr on HCl 4 mg tablet active would like refill but for the sublingu al tab Not Available Not Available Not Available dexametha sone 6 mg tablet Take 1 tablet every day by oral route for 7 days. 05/07 completed Not Available Not Available Not Available sertralin e 100 mg tablet TAKE 2 TABLETS BY MOUTH EVERY DAY 2023 active Not Available Not Available Not Avai lable Lantus U-100 Insulin 100 unit/mL subcutane ous solution 04/27 completed Not Available Not Available Not Available meclizine 12.5 mg tablet Take 1 tablet 3 times a day by oral route as needed for 30 days. 2023 active Not Available Not Available Not Avai [employer] metronida zole 500 mg tablet completed Not Available Not Available Not Available ciproflox acin 500 mg tablet Take 1 tablet every 12 hours by oral route for 10 days. 08/11 completed Not Available Not Available Not Available aspirin 81 mg tablet,de layed release TAKE 1 TABLET BY MOUTH EVERY DAY 2023 active Not Available Not Available Not Avai [employer] tramadol 50 mg tablet TAKE 1 TABLET BY MOUTH EVERY 6 HOURS active Not Available Not Available No t Available glimepiri de 2 mg tablet TAKE 2 TABLETS BY MOUTH TWICE DAILY BEFORE MEALS active Not Available Not Available No t Available Depo-Medr ol 80 mg/mL suspensio n for injection Take 1 mL by injectio n route. 08/11 completed Not Available Not Available Not Available levothyro xine 100 mcg tablet TAKE 1 TABLET BY MOUTH EVERY DAY active Not Available Not Available No t Available ofloxacin 0.3 % ear drops Instill 3 drops twice a day by otic route. 12/16 completed Not Available Not Available Not Available famotidin e 20 mg tablet TAKE 1 TABLET BY MOUTH TWICE DAILY take 30 min before food 2024 active Not Available Not Available Not Avai lable dicyclomi ne 20 mg tablet 01/25 completed Not Available Not Available Not Available Humalog U-100 Insulin 100 unit/mL subcutane ous solution 04/27 completed Not Available Not Available Not Available ciproflox acin 0.3 % eye drops INSTILL 1 DROP INTO AFFECTED EYES (left ) BY OPHTHALM IC ROUTE EVERY 2 HOURSWHI LE AWAKE FOR 2 DAYS THEN 1 DROP EVERY 4 HRS WHILE AWAKE FOR 5 DAYS 12/16 completed Not Available Not Available Not Available OneTouch Ultra Test strips active Not Available Not Available Not Available Kenalog 10 mg/mL suspensio n for injection In office injectio n administ ered by the provider 12/26 completed [facility]: [phone] 4-20 Not Available Not Available Not Available dexametha sone 1 mg tablet Take 1 tablet as needed by oral route at bedtime for 1 day. active take dexa tablet at 10 pm night before 8 am cortisol Not Available Not Available Not Available ropinirol e 2 mg tablet Take 1 tablet every day by oral route at bedtime. 2023 active Not Available Not Available Not Avai lable cephalexi n 500 mg capsule 04/23 completed Not Available Not Available Not Available pantopraz ole 40 mg tablet,de layed release TAKE 1 TABLET BY MOUTH EVERY DAY 2024 active Not Available Not Available Not Avai lable metformin 1,000 mg tablet TAKE 1 TABLET BY MOUTH TWICE DAILY WITH MEALS completed Not Available Not Available Not Available levothyro xine 125 mcg tablet Take 1 tablet every day by oral route in the morning for 90 days. active Not Available Not Available No t Available neomycin- polymyxin -dexameth 3.5 mg/mL-10, 000 unit/mL-0 .1% eye drops completed Not Available Not Available Not Available ranitidin e 150 mg tablet 01/05 completed Not Available Not Available Not Available gabapenti n 300 mg capsule TAKE 1 CAPSULE BY MOUTH THREE TIMES DAILY active Not Available Not Available No t Available omeprazol e 20 mg capsule,d elayed release 06/22 completed Not Available Not Available Not Available monteluka st 10 mg tablet TAKE 1 TABLET BY MOUTH DAILY active Not Available Not Available No t Available ranitidin e 150 mg capsule 01/05 completed Not Available Not Available Not Available gabapenti n 100 mg capsule Take 1 capsule every day by oral route as needed for 20 days. 12/26 completed Not Available Not Available Not Available levofloxa glynn 500 mg tablet Take 1 tablet every 24 hours by oral route. active Not Available Not Available No t Available estradiol 0.01% (0.1 mg/gram) vaginal cream 12/16 completed Not Available Not Available Not Available levofloxa glynn 750 mg tablet Take 1 tablet every day by oral route in the morning for 10 days. completed Not Available Not Available Not Available losartan 50 mg-hydroc hlorothia zide 12.5 mg tablet 04/27 completed Not Available Not Available Not Available hydroxyzi ne HCl 10 mg tablet 1 to 2 tabs po as needed up to 3 times daily active Not Available Not Available No t Available ondansetr on 4 mg disintegr ating tablet Place 1 tablet 3 times a day by translin gual route as needed for 30 days. active Not Available Not Available No t Available fluticaso ne propionat e 50 mcg/actua tion nasal spray,[facility] [place] Jose 1 spray every day by intranas al route. active Not Available Not Available No t Available dicyclomi ne 10 mg capsule Take 1 capsule 3 times a day by oral route before meal(s) for 30 days. active Not Available Not Available No t Available naproxen 500 mg tablet active Not Available Not Available Not Available amoxicill in 875 mg-potass ium clavulana te 125 mg tablet Take 1 tablet every 12 hours by oral route for 10 days. 11/09 completed Not Available Not Available Not Available Ventolin HFA 90 mcg/actua tion aerosol inhaler INHALE 2 PUFFS BY MOUTH EVERY 4 HOURS NEEDED active Not Available Not Available No t Available rosuvasta tin 40 mg tablet TAKE 1 TABLET BY MOUTH EVERY DAY active Not Available Not Available No t Available nitrofura ntoin monohydra te/macroc rystals 100 mg capsule Take 1 capsule every 12 hours by oral route for 7 days. 06/28 completed Not Available Not Available Not Available fenofibra te 160 mg tablet TAKE 1 TABLET BY MOUTH EVERY DAY active Not Available Not Available No t Available lidocaine (PF) 10 mg/mL (1 %) injection solution In office injectio n administ ered by the provider 12/26 completed [facility]: 0409-427 12-21 Not Available Not Available Not Available aripipraz ole 2 mg tablet TAKE 1 TABLET BY MOUTH EVERY DAY 2024 active Not Available Not Available Not Avai lable Januvia 100 mg tablet Take 1 tablet every day by oral route in the morning for 30 days, for diabetes . 2024 active Not Available Not Available Not A [id number]|2024-11-17 08:58:00|2024-11-17 08:57:00|XMS_ITS|BKG DAALEJANDRO|External Medical Summaries|[id number]|" Data Portability Created on: November 17, 2024 Hannah Mejia .[id number] : [id number] Sex: Female Author Organization [facility] Address [address] [place] [id number] Care Team Providers Care Tool And Cutter Grinder Name Role Phone RAMIRO ORELLANA Dry Cleaner Helper DELIO CASTREJON Neurosurgeon SHARRI TOWNSEND Hand Surgeon MARBELLA AVENDANO Sign Carpenter Assessment Encounter Date Assessment Date Assessment LastModified by Organization Details LastModified Time 09/27/2020 09/27/2020 Not keen on doin g her medication reconciliation He already went through it . I have tried to explain to her that it may appear repetitive but I need to confirm her medications as I typically do on each and every visit, regardless of what the nurse may have done during her intake. oajao Not available 09/27/2020 14:19:22 Plan of Treatment Reminders Order Date Submit Date Provider Last Modified By Organization Details Last Modified Time Details Appointments None recorded . Lab TSH, ultra-se nsitive, serum 2020 021 [facility], [address], [address], [place], [address], 13:04:06 TSH, ultra-se nsitive, serum 2020 021 [facility], [address], [address], [place], [address], 11:10:17 HIV 1+2 AB + HIV 1 p24 Ag, qualitat erika immunoas say, serum 2020 021 [facility], [address], [address], [place], [address], 11:10:15 HbA1c (hemoglo bin A1c), blood 2020 021 [facility], [address] [facility] [address], [address], [place], [address], 11:10:14 lipid panel, serum 2020 021 [facility], [address], [address], [place], [address], 11:10:12 microalb umin, urine 2020 021 [facility], [address] [facility] [address], [place], [address], 11:10:16 drug screen, urine 2020 021 [facility], [address] [facility] [address] [address], [place], [address], 11:12:44 BMP, serum or plasma 2020 [facility], [address] [facility] [address], [place], [address], 11:10:11 CBC 2020 021 [facility], [address] [facility] [address], [address], [place], [address], 11:10:10 Referral diabetic ophthalm ology referral 2020 021 [email or web address], [address] , [place], [address], 13:06:14 orthoped ic surgeon referral - R knee instabil Axel ambrose knee pain 2020 [facility], [address] [facility], [place], [address], 12:15:15 Procedures None recorded . Surgeries None recorded . Imaging XR, knee 2020 [facility] ([facility]), [address] [place], [address], 1 13:14:29 MRI, knee, w/o contrast - Recurren t falls, instabil ity, pain 2020 [facility] ([facility]), [address] [place], [address], 1 17:53:09 MAMMO, screenin g, bilatera l 2019 020 [facility] ([facility] Call Scheduling), [address] [place], [address], 0 12:35:16 CT, abdomen + pelvis, w/ contrast 2019 020 [facility] ([facility] Call Scheduling), [address] [place], [address], 0 17:11:39 Medication Orders Augmenti n 875 mg-125 mg tablet 2020 021 [facility] #[facility]74, [address], [place], [place], [id number], 1 13:03:34 ofloxaci n 0.3 % ear drops 2020 021 [facility] #26771, [address], [place], [place], [id number], 1 15:42:08 tramadol 50 mg tablet 2020 021 oajao [facility] #33172, [address], [id number], 1 15:49:16 ofloxaci n 0.3 % ear drops [address] [facility]70363, [address] [place], [id number], 15:10:40 amoxicil dominguez 875 mg-potas sium clavulan ate 125 mg tablet 2019 020 [facility], [address], [place], [place], [id number], 12:18:07 Patient TargetsNo targets recorded. Patient Instructions Encounter Date Encounter Id Patient Instructions Last Modified By Organization Details Last Modified Time 01/17/[id number] Jn Walsh MMG as previously ordered Follow up in 4 months Reschedule the appointment with another orthopedicsurgeon oajao Not available 01/17/2020 10:20:49 06/21/2020 [id number] learning about b reast cancer screening oajao Not available 06/21/2020 12:11:10 Lab results from [facility] Augmentin/Ofloxacin Test BS 5/day A MMG has been reordered Follow up in 4 months oajao Not available 06/21/2020 12:10:57 08/29/2020 [id number] type 2 diabetes: care instructions oajao Not available 08/29/2020 15:45:14 ER report Early Tramadol refill Labs Complete the course of antibiotics prescribed by the ERMD MMG as previously ordered Ofloxacin ear drops Follow up as scheduled on 10/19/2020 or sooner oajao Not available 08/29/2020 15:52:48 I have explained to her that I did not give instructions of this sort and at a minimum, a message should have been left for the nurse by the frontload driver. oajao Not available 08/29/2020 16:25:22 09/27/2020 [id number] type 2 diabetes: care instructions oajao Not available 09/27/2020 12:33:54 ear infection (o titis media): care instructions oajao Not available 09/27/2020 13:03:28 MMG as previousl y ordered Note from her outreach professional Xray MRI Orthopedics Augmentin s she is symptomatic Note to the post man Follow up in 6 weeks oajao Not available 09/27/2020 14:14:01 Detailed visit [email or web address] Not available 0 09/27/2020 14:14:20 Reason for Referral Diabetic Ophthalmology Refer ral for Type 2 diabetes mellitus without complication Referring Physician: Brenna Mak, Internal Medicine, Encounter Date: 09/27/2020 Orthopedic Surgeon Referral for Chronic instability of knee R knee instability, L. knee pain R knee instability, L. knee pain Referring Physician: Brenna Mak, Internal Medicine, Encounter Date: 09/27/2020 Results Created Date Observation Date Name Description Value Unit Range Abnormal Flag Note LastModifiedBy Organization Detail LastModifiedTime 09/16/19 21 09/16/2020 CBC WBC 5.1 x10e3 /uL 3.4-10 .8 Not Available [facility] ([facility]) [address] [place], [address], 09/16/2020 11:10:10 09/16/19 21 09/16/2020 CBC RBC 4.91 x10e6 /uL 3.77-5 .28 Not Available [facility] ([facility]) [address] [place], [address], 09/16/2020 11:10:10 09/16/19 21 09/16/2020 CBC hemoglobin 13.6 g/dL 11.1-1 5.9 Not Available [facility] ([facility]) [address] [place], [address], 09/16/2020 11:10:10 09/16/19 21 09/16/2020 CBC hematocrit 42.4 % 34.0-4 6.6 Not Available [facility] ([facility]) [address] [place], [address], 09/16/2020 11:10:10 09/16/19 21 09/16/2020 CBC MCV 86 fL 79-97 Not Available [facility] ([facility]) [address] [place], [address], 09/16/2020 11:10:10 09/16/19 21 09/16/2020 CBC MCH 27.7 pg 26.6-3 3.0 Not Available [facility] ([facility]) [address] [facility] [place], [address], 09/16/2020 11:10:10 09/16/19 21 09/16/2020 CBC MCHC 32.1 g/dL 31.5-3 5.7 Not Available [facility] ([facility]) [address] [facility], [place], [address], 09/16/2020 11:10:10 09/16/1909/16/2020 CBC RDW 14.1 % 11.7-1 5.4 Not Available [facility] ([facility]) [address] [facility] [place], [address], 09/16/2020 11:10:10 09/16/1909/16/2020 CBC platelets 198 x10e3 /uL 150-45 0 Not Available [facility] ([facility]) [address] [facility] [place], [address], 09/16/2020 11:10:10 09/16/1909/16/2020 CBC NRBC TEACHER BALLET Not Available [facility] ([facility]) [address] [facility] [place], [address], 09/16/2020 11:10:10 09/16/1909/16/2020 BMP, serum or plasm a glucose 181 mg/dL 65-99 above high normal Not Available [facility] ([facility]) [address] [facility] [place], [address], 09/16/2020 11:10:11 09/16/1909/16/2020 BMP, serum or plasm a BUN 16 mg/dL 8-27 Not Available [facility] ([facility]) [address] [facility] [place], [address], 09/16/2020 11:10:11 09/16/19 21 09/16/2020 BMP, serum or plasm a creatinine 0.78 mg/dL 0.57-1 .00 Not Available [facility] ([facility]) [address] [place], [address], 09/16/2020 11:10:11 09/16/19 21 09/16/2020 BMP, serum or plasm a eGFR if nonafricn AM 82 mL/mi n/1.7 3 >59 Not Available [facility] ([facility]) [address] [place], [address], 09/16/2020 11:10:11 09/16/19 21 09/16/2020 BMP, serum or plasm a eGFR if africn AM 95 mL/mi n/1.7 3 >59 Not Available [facility] ([facility]) [address] [place], [address], 09/16/2020 11:10:11 09/16/19 21 09/16/2020 BMP, serum or plasm a BUN/creatini ne ratio 21 -28 Not Available [facility] ([facility]) [address] [place], [address], 09/16/2020 11:10:11 09/16/19 21 09/16/2020 BMP, serum or plasm a sodium 143 mmol/ L 134-14 4 Not Available [facility] ([facility]) [address] [place], [address], 09/16/2020 11:10:11 09/16/19 21 09/16/2020 BMP, serum or plasm a potassium 4.4 mmol/ L 3.5-5. 2 Not Available [facility] ([facility]) [address] [place], [address], 09/16/2020 11:10:11 09/16/19 21 09/16/2020 BMP, serum or plasm a chloride 103 mmol/ L 96-106 Not Available [facility] ([facility]) [address] [facility], [place], [address], 09/16/2020 11:10:11 09/16/19 21 09/16/2020 BMP, serum or plasm a carbon dioxide, total 24 mmol/ L 20-29 Not Available [facility] ([facility]) [address] [facility], [place], [address], 09/16/2020 11:10:11 09/16/19 21 09/16/2020 BMP, serum or plasm a calcium 10.3 mg/dL 8.7-10 .3 Not Available [facility] ([facility]) [address] [facility], [place], [address], 09/16/2020 11:10:11 09/16/19 21 09/16/2020 lipid panel , serum cholesterol, total 111 mg/dL 100-19 9 Not Available [facility] ([facility]) [address] [facility], [place], [address], 09/16/2020 11:10:12 09/16/19 21 09/16/2020 lipid panel , serum triglyceride s 217 mg/dL 0-149 above high normal Not Available [facility] ([facility]) [address] [facility], [place], [address], 09/16/2020 11:10:12 09/16/19 21 09/16/2020 lipid panel , serum HDL cholesterol 35 mg/dL >39 below low normal Not Available [facility] ([facility]) [address] [place], [address], 09/16/2020 11:10:12 09/16/19 21 09/16/2020 lipid panel , serum VLDL cholesterol osmin 35 mg/dL 5-40 Not Available [facility] ([facility]) [address] [place], [address], 09/16/2020 11:10:12 09/16/19 21 09/16/2020 lipid panel , serum LDL chol calc ([facility]) 41 mg/dL 0-99 Not Available [facility] ([facility]) [address] [place], [address], 09/16/2020 11:10:12 09/16/19 21 09/16/2020 lipid panel , serum comment: TEACHER BALLET Not Available [facility] ([facility]) [address] [place], [address], 09/16/2020 11:10:12 09/16/19 21 09/16/2020 HbA1c (hemo globi n A1c), blood hemoglobin A1C 8.1 % 4.8-5. 6 above high normal Predi abete s: 5.7 - 6.4 Diabe pankaj: >6.4 Glyce candy contr ol for adult s with diabe pankaj: <7.0 Not Available [facility] ([facility]) [address] [facility], [place], [address], 09/16/2020 11:10:13 09/16/19 21 09/16/2020 HIV 1+2 AB + HIV 1 p24 Ag, quali tativ e immun oassa y, serum HIV screen 4TH generation wrfx NON REACTI VE non reacti ve Not Available [facility] ([facility]) [address] [place], [address], 09/16/2020 11:10:14 09/16/19 21 09/16/2020 micro album in, urine albumin, urine 4.5 ug/mL not estab. Not Available [facility] ([facility]) [address] [place], [address], 09/16/2020 11:10:16 09/16/19 21 09/16/2020 TSH, ultra -sens itive , serum TSH 0.157 uIU/m L 0.450- 4.500 below low normal Not Available [facility] ([facility]) [address] [place], [address], 09/16/2020 11:10:17 09/16/19 21 09/16/2020 TSH, ultra -sens itive , serum T4,free (direct) 1.59 NG/dL 0.82-1 .77 Not Available [facility] ([facility]) [address] [facility], [place], [address], 09/16/2020 11:10:17 09/16/19 21 09/16/2020 diabe pankaj patie nt educa tion pdf . Not Available [facility] ([facility]) [address] [facility], [place], [address], 09/16/2020 11:10:18 09/16/1909/21/2020 drug scree n, urine summary report (summary) FINAL ===== ===== ===== ===== ===== ===== ===== ===== ===== ===== ===== ===== ===== === TOXAS SURE COMP DRUG ADDIS SIS,U R ===== ===== ===== ===== ===== ===== ===== ===== ===== ===== ===== ===== ===== === Test Resul t Flag Units Drug Prese nt Trama dol >5495 ng/mg creat O-Harman methy ltram adol >5495 ng/mg creat N-Ahrman methy ltram adol 393 ng/mg creat Sourc e of trama dol is a presc ripti on medic ation . O-harman methy ltram adol and N-harman methy ltram adol are expec izabel metab olite s of trama dol. Gabap entin PRESE NT Sertr irish PRESE NT Desme thyls ertra line PRESE NT Desme thyls ertra line is an expec izabel metab olite of sertr irish . ===== ===== ===== ===== ===== ===== ===== ===== ===== ===== ===== ===== ===== === Test Resul t Flag Units Ref Range Creat inine 91 mg/dL >=20 ===== ===== ===== ===== ===== ===== ===== ===== ===== ===== ===== ===== ===== === Decla red Medic ation s: Medic ation list was not provi ded. ===== ===== ===== ===== ===== ===== ===== ===== ===== ===== ===== ===== ===== === For clini osmin consu ltati on, pleas e call . ===== ===== ===== ===== ===== ===== ===== ===== ===== ===== ===== ===== ===== === Not Available [facility] [address], [place], [address], 09/21/2020 11:12:44 09/16/19 21 09/21/2020 drug scree n, urine pdf . Not Available [facility] [address], [place], [address], 09/21/2020 11:12:44 01/14/20 20 nerve condu ction study No observ ation record ed. jass Lyn [address], [place], [address], 01/17/2020 09:51:29 04/07/20 20 04/07/2020 US, head + neck, soft tissu e No observ ation record ed. [facility] [address] [place], [address], 06/21/2020 11:52:40 04/21/20 20 04/21/2020 XR, hand No observ ation record ed. [facility] [address] [place], [address], 06/21/2020 11:52:40 10/19/19 21 10/18/2020 XR, knee No observ ation record ed. [facility] [address] [place], [address], 10/25/2020 17:26:05 11/23/19 21 11/22/2020 CT, abdom en + pelvi s, w/o contr ast No observ ation record ed. [facility] [address] [place], [address], 11/23/2020 14:00:40 11/29/19 21 11/28/2020 MRI, knee, w/o contr ast No observ ation record ed. [email or web address] [address] [place], [address], 11/29/2020 09:08:52 03/06/20 21 03/06/2021 US, abdom en No observ ation record ed. [facility] ([facility]) [address] [place], [address], 03/08/2021 19:32:44 Result Notes None recorded. 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 9434049451773 05 Active 2017 Not Available [facility] 09:49:24 Chronic low back pain 849467205 Active 2017 Not Available [facility] 1 09:49:24 Impaired mobility 85804015 Active 2017 Not Available [facility] 1 09:49:24 Diabetes mellitus 96806656 Active Not Available [facility] 1 09:49:24 Mild recurrent major depression 65584365 Active Not Available [facility] 09:49:24 Disorder of lipid metabolism 281663379 Active Not Available [facility] 1 09:49:24 Gastroesop hageal reflux disease 598081652 Active Not Available [facility] 09:49:24 Benign hypertensi on 63598778 Active Not Available [facility] 09:49:25 Acquired hypothyroi dism 170847837 Active Not Available [facility] 09:49:24 Administra tion of influenza vaccine Active 2018 Not Available [facility] 1 09:49:25 Poor balance 523460620 Active 2019 Not Available [facility] 09:49:24 Hyperlipid emia 30848785 Active Not Available [facility] 09:49:24 Disorder of stomach 89057284 Active Not Available [facility] 09:49:24 Obesity 720529711 Active Not Available [facility] 09:49:24 Uncontroll ed type 2 diabetes mellitus 458801036 Active Not Available [facility] 09:49:24 Type 2 diabetes mellitus without complicati on 307613240 Active Not Available [facility] 09:49:24 Fatigue 98917812 Active Not Available [facility] 09:49:24 Abdominal pain 31214510 Active Not Available [facility] 09:49:25 Chest pain 60596813 Active Not Available [facility] 09:49:24 Heel pain 8338345 Active Not Available [facility] 09:49:25 Depressive disorder 39338878 Active Not Available [facility] 09:49:24 Calcaneal spur 43709899 Active Not Available [facility] 09:49:24 Metabolic dysfunctio n-associat ed steatohepa titis 236754733 Active Not Available [facility] 09:49:24 Constipati on 10936405 Active Not Available [facility] 09:49:25 Low back pain 759946311 Active Not Available [facility] 09:49:24 Neuropathy 976272079 Active Not Available [facility] 09:49:24 Notes:Some problems listed i n Documents: #[id number], #[id number] could not be added to this patient's chart. Please review these documents and add these problems to the patient's chart manually as needed. Problem Notes None recorded. Procedures Surgical History Date Name Laterality Status Provider Name and Address Organization Details Recorded Time 10/19/19 16 colonoscopy completed Brenna Mak MD Attn: Accounting,[address] [place], [place], [address] [place] [address], [facility] 06/21/2020 11:53:39 07/07/19 12 Date of Last Pap Smear completed Jessie Lawson MA [facility] 07/14/2017 16:06:47 Total hysterectomy completed Brenna Mak MD Attn: Accounting,[address] [place], [place], [address] [place] [address], [facility] 03/17/2018 13:02:41 Hysterectomy completed Brenna Mak MD Attn: Accounting,[address] [place], [address] [place] [address], [facility] 09/01/2015 11:56:54 Breast Surgery completed Brenna bentley MD Attn: Accounting,[address] [place], [address] [place] [address], [facility] 09/01/2015 11:56:54 Other completed Brenna Mak MD Attn: Accounting,[address] [place], [address] [place] [address], [facility] 09/01/2015 11:56:54 Other completed Brenna Mak MD Attn: Accounting,[address] [place], [address], [place] [facility] 09/01/2015 11:56:54 Imaging Results Imaging Date Name Status LastModified by Berry moran Details LastModified Time 01/14/2020 nerve conduction study completed [facility] Riki [address] [address] [facility] [address], [place], [address], 01/17/2020 09:51:29 04/07/2020 US, head + neck, soft tissue completed [facility] [address] [place], [address], 06/21/2020 11:52:40 04/21/2020 XR, hand completed [facility] [address] [place], [address], 06/21/2020 11:52:40 10/18/2020 XR, knee completed [facility] [address] [place], [address], 10/25/2020 17:26:05 11/22/2020 CT, abdomen + pelvis, w/o contrast completed [facility] [address] [place], [address], 11/23/2020 14:00:40 11/28/2020 MRI, knee, w/o contrast completed [facility] ([facility]) [address] [place], [address], 11/29/2020 09:08:52 03/06/2021 US, abdomen completed [facility] ([facility] Call Sched[facility]) [address] [place], [address], 03/08/2021 19:32:44 Procedure Notes None recorded. Medical Equipment None Reported. Allergies Allergen ID Allergen Name Allergen Category Reaction Reaction Severity Criticality Documentation Date Start Date Code Code System Note Provider Name and Address Organization Details Recorded Time 37828 codeine medicatio n angioedem a severe Not available 11/08/2014 3190 RxNorm October [place], [place] - [facility] 17:16:31 05128 Demerol medicatio n angioedem a Not available Not available 11/08/2014 68271 1 RxNorm October [place], [place] - [facility] 17:16:31 95321 acetamino phen / hydrocodo ne medicatio n angioedem a moderate Not available 11/08/2014 32244 2 RxNorm October [place], [place] - [facility] 17:16:31 Medications Name Sig Start Date Stop Date Status Note LastModified by Organization Details LastModified Time OneTouch Ultra Blue Test Strips 5/2020 active Not Available Not Available Not Avai lable glucometer Once a day testing 2016 active Not Available Not Available Not Avai lable cyclobenzap rine 10 mg tablet TAKE 1 TABLET BY MOUTH THREE TIMES DAILY FOR UP TO 14 DAYS NEEDED FOR MUSCLE SPASMS active Not Available Not Available No t Available metformin 500 mg tablet TAKE ONE TABLET BY MOUTH TWICE DAILY 09/01 completed Not Available Not Available Not Available Augmentin 875 mg-125 mg tablet Take 1 tablet every 12 hours by oral route as directed for 7 days. 2020 active Not Available Not Available Not Avai lable prednisone 10 mg tablet 08/31 completed Not Available Not Available Not Available ammonium lactate 12 % lotion Aply BID 2020 active Not Available Not Available Not Avai lable cetirizine 10 mg tablet TAKE ONE TABLET BY MOUTH DAILY 2020 active Not Available Not Available Not Avai lable lisinopril 20 mg-hydrochl orothiazide 12.5 mg tablet Take 2 tablets every day by oral route as directed for 90 days. active Not Available Not Available No t Available pravastatin 40 mg tablet Take 1 tablet every day by oral route as directed for 30 days. 09/27 completed Not Available Not Available Not Available sertraline 100 mg tablet TAKE 1 TABLET BY MOUTH DAILY active Not Available Not Available No t Available Lantus U-100 Insulin 100 unit/mL subcutaneou s solution Inject 36 units every day by subcutane ous route at bedtime for 30 days. 10/19 completed Not Available Not Available Not Available metronidazo le 500 mg tablet active Not Available Not Available Not Available nizatidine 150 mg capsule One po BID 2019 active Not Available Not Available Not Avai lable aspirin 81 mg tablet,ashish yed release TAKE 1 TABLET BY MOUTH EVERY DAY active Not Available Not Available No t Available tramadol 50 mg tablet Take 2 tablets every 8 hours by oral route as directed for 10 days. active Not Available Not Available No t Available glimepiride 2 mg tablet Take 2 tablets every day by oral route with meals for 90 days. 08/29 completed Not Available Not Available Not Available fenofibrate micronized 134 mg capsule TAKE 1 CAPSULE BY MOUTH EVERY DAY 05/20 completed Not Available Not Available Not Available glimepiride 1 mg tablet TAKE ONE TABLET BY MOUTH ONCE DAILY WITH MEALS 10/07 completed Not Available Not Available Not Available levothyroxi ne 100 mcg tablet One po daily active Not Available Not Available No t Available ofloxacin 0.3 % ear drops Instill 10 drops twice a day by otic route around the clock for 10 days. active Not Available Not Available No t Available famotidine 20 mg tablet active Not Available Not Available Not Available dicyclomine 20 mg tablet active Not Available Not Available Not Available Humalog U-100 Insulin 100 unit/mL subcutaneou s solution Inject 26 units 3 times a day by sub-q route with meals for 30 days. 10/19 completed Not Available Not Available Not Available OneTouch Ultra Test strips Take by miscell. route for 25 days. active Not Available Not Available No t Available dexamethaso ne 1 mg tablet 08/29 completed Not Available Not Available Not Available cephalexin 500 mg capsule Take 1 capsule every 6 hours by oral route as directed for 5 days. 08/31 completed Not Available Not Available Not Available metformin 1,000 mg tablet Take 1 tablet(s) twice a day by oral route for 90 days. active Not Available Not Available No t Available levothyroxi ne 125 mcg tablet TAKE 1 TABLET BY MOUTH EVERY DAY active Not Available Not Available No t Available ranitidine 150 mg tablet TAKE 1 TABLET BY MOUTH TWICE DAILY 07/15 completed Not Available Not Available Not Available glimepiride 4 mg tablet Take 1 tablet twice a day by oral route. 02/17 completed Not Available Not Available Not Available gabapentin 300 mg capsule TAKE 2 CAPSULES BY MOUTH THREE TIMES DAILY active Not Available Not Available No t Available omeprazole 20 mg capsule,del ayed release One po daily 11/10 completed Not Available Not Available Not Available pravastatin 20 mg tablet TAKE ONE TABLET BY MOUTH ONCE DAILY 05/20 completed Not Available Not Available Not Available ranitidine 150 mg capsule One PO BID 09/12 completed Not Available Not Available Not Available losartan 50 mg-hydrochl orothiazide 12.5 mg tablet Take 1 tablet every day by oral route as directed for 90 days. 05/12 completed Not Available Not Available Not Available naproxen 500 mg tablet 08/31 completed Not Available Not Available Not Available levothyroxi ne 112 mcg tablet TAKE ONE TABLET BY MOUTH ONCE DAILY 10/07 completed Not Available Not Available Not Available ezetimibe 10 mg tablet TAKE 1 TABLET BY MOUTH EVERY NIGHT AT BEDTIME 05/20 completed Not Available Not Available Not Available rosuvastati n 40 mg tablet TAKE ONE TABLET BY MOUTH DAILY active Not Available Not Available No t Available fenofibrate 160 mg tablet TAKE 1 TABLET BY MOUTH EVERY DAY active Not Available Not Available No t Available tramadol HS 05/20 completed
--- OUTSIDE RECORDS SUMMARY | 2024-11-17 08:58 | XMS_ITS | Clinical Summary ---
Author Organization [address] Address [address] [place] [phone] Care Team Providers Care Dishwasher Name Role Phone Adolfo Lyn Primary Care Provider + Kishore Omer MD Unavailable [phone] Allergies Active Allergy Reactions Criticality Noted Date Comments Codeine Rash Medium 12/25/2023 Hydrocodone-Acetaminophe n Hives,Itching,Swell ing,Rash High 11/21/2016 Throat swelled,hives,troub le breathing Iodinated Contrast Media Unknown,Rash Medium Empagliflozin Diarrhea Medium 06/18/2022 Meperidine Rash Medium 12/25/2023 Pkvschndfomb-Hon-Mnbdfhf e Unknown 12/25/2023 Semaglutide Diarrhea,Stomach upset High 06/18/2022 Medications cetirizine (ZyrTEC) 10 mg tablet cetirizine 10 mg tablet Active famotidine (PEPCID) 20 mg tablet famotidine 20 mg tablet Active fenofibrate (TRIGLIDE) 160 mg tablet fenofibrate 160 mg tablet Active lisinopril-hydroC HLOROthiazide (ZESTORETIC) 20-12.5 mg per tablet lisinopril 20 mg-hydrochlorot hiazide 12.5 mg tablet 970 Active montelukast (SINGULAIR) 10 mg tablet montelukast 10 mg tablet Active rosuvastatin (CRESTOR) 40 mg tablet rosuvastatin 40 mg tablet Active sertraline (ZOLOFT) 100 mg tablet sertraline 100 mg tablet 970 Active traMADoL (ULTRAM) 50 mg tablet 0 Active fluticasone propionate (FLONASE) 50 mcg/actuation nasal spray Active cyclobenzaprine (FLEXERIL) 10 mg tablet Active ibuprofen (ADVIL,MOTRIN) 200 mg tab/cap ibuprofen Activ e neomycin-polymyxi n-dexAMETHasone (MAXITROL) 3.5mg/mL-10,000 unit/mL-0.1 % ophthalmic suspension neomycin-polymy panfilo-dexameth 3.5 mg/mL-10,000 unit/mL-0.1% eye drops Active aspirin 81 mg enteric coated tablet Active levothyroxine (SYNTHROID) 100 mcg tablet Active rOPINIRole (REQUIP) 2 [address] Active pantoprazole DR (PROTONIX) 40 mg EC tablet Active glucagon 1 mg kitIndications:Ty pe 2 diabetes mellitus with hyperglycemia, with long-term current use of insulin ([facility]) Use as directed for low blood sugar. 1 kit 11 023 Active alcohol swabs (Easy Touch Alcohol Prep Pads) pads, medicated USE TO TEST THREE TIMES DAILY 300 each 3 023 Active sulfaSALAzine (AZULFIDINE) 500 mg tablet Take 1 tablet (500 mg total) by mouth 2 (two) times a day 023 Active Ventolin HFA 90 mcg/actuation inhaler Active ARIPiprazole (ABILIFY) 2 mg tablet 023 Active ondansetron (ZOFRAN) 8 mg tablet 023 Active blood-glucose meter kitIndications:Ty pe 2 diabetes mellitus with hyperglycemia, with long-term current use of insulin (HCC) Use daily or as directed for monitoring of diabetes 1 kit 024 Active blood glucose diagnostic (OneTouch Ultra Test) stripIndications: Type 2 diabetes mellitus with hyperglycemia, with long-term current use of insulin (HCC) USE TO TEST BLOOD SUGAR FOUR TIMES DAILY 100 strip 3 024 Active dicyclomine (BENTYL) 10 mg capsule 05/06/2 024 Active estradioL (ESTRACE) 0.01 % (0.1 mg/gram) vaginal cream Active naproxen (NAPROSYN) 500 mg tablet Active ofloxacin (FLOXIN) 0.3 % otic solution Instill 3 drops twice a day by otic route. Active OneTouch Ultra2 Meter misc Active ondansetron (ZOFRAN) 4 mg tablet Active blood-glucose meter,continuous (Dexcom G6 Personal Injury Litigation Paralegal) miscIndications:T ype 2 diabetes mellitus with hyperglycemia, with long-term current use of insulin ([facility]) Continuous glucose monitor. Current product delivery specialist not alerting to low readings 1 each Active Dexcom G6 Sensor deviceIndications :Type 2 diabetes mellitus with hyperglycemia, with long-term current use of insulin ([facility]) Dx: E11.65 insulin dependent. Change sensor every 10 days. 9 each Active Dexcom G6 Transmitter deviceIndications :Type 2 diabetes mellitus with hyperglycemia, with long-term current use of insulin ([facility]) Dx: E11.65 insulin dependent. Change transmitter every 90 days. 1 each Active calcium carbonate-vitamin D3 (CALTRATE 600 + D) 1500 mg (600 mg elemental) -400 units per tablet Take 1 tablet twice a day by oral route with meal(s) for 30 days. Active methylPREDNISolon e acetate (DEPO-MedroL) 80 mg/mL injection Take 1 mL by injection route. Active gabapentin (NEURONTIN) 300 mg capsuleIndication s:Diabetic polyneuropathy associated with type 2 diabetes mellitus ([facility]) Take 1 capsule (300 mg total) by mouth 3 (three) times a day 270 capsule 3 024 2024 Active blood-glucose sensor (DEXCOM G7 [facility]) Active glimepiride (AMARYL) 4 mg tabletIndications :type 2 diabetes mellitus Take 1 tablet (4 mg total) by mouth 2 (two) times a day before lunch and dinner 180 tablet 3 025 2025 Active insulin glargine (LANTUS) 100 unit/mL (3 mL) pen for injectionIndicati ons:Type 2 diabetes mellitus with hyperglycemia, with long-term current use of insulin ([facility]) Inject 75 Units under the skin every morning 75 mL 3 025 2025 Active insulin lispro (HumaLOG) 100 unit/mL pen for injectionIndicati ons:type 2 diabetes mellitus Inject 60-75 Units under the skin 3 (three) times a day before meals 205 mL 3 025 2025 Active pen needle, diabetic (BD Lily 2nd Gen Pen Needle) 32 gauge x 5/32 needleIndications :Type 2 diabetes mellitus with hyperglycemia, with long-term current use of insulin ([facility]) Use to inject insulin 5-6 times/day 180 each 11 Active Januvia 100 mg tablet Active lancets (OneTouch Delica Plus Lancet) 30 gauge miscIndications:T ype 2 diabetes mellitus with hyperglycemia, with long-term current use of insulin ([facility]) USE TO TEST BLOOD SUGAR LEVELS FOUR TIMES DAILY 100 each 3 Active metFORMIN (GLUCOPHAGE) 500 mg tabletIndications :Type 2 diabetes mellitus with hyperglycemia, with long-term current use of insulin ([facility]) Take 1 tablet (500 mg total) by mouth 2 (two) times a day with meals 180 tablet 3 024 2024 Discontinued(N o longer taking - Do not display on AVS) lancets (OneTouch Delica Plus Lancet) 30 gauge miscIndications:T ype 2 diabetes mellitus with hyperglycemia, with long-term current use of insulin ([facility]) USE TO TEST BLOOD SUGAR LEVELS FOUR TIMES DAILY 100 each 3 024 2024 Discontinued Active Problems Problem Noted Date Diagnosed Date Morbid (severe) obesity due to excess calories 0 02/11/2024 Body mass index 40.0-44.9, adult ([facility]) 02/10 Class 3 severe obesity due t o excess calories with serious comorbidity and body mass index (BMI) of 40.0 to 44.9 in adult 02/11/2024 Assessment & Plan (02/11/2024 11:14 AM CDT): Discussed healthy diet and importance of regular physical activity (20- 30min/day, 150min/wk). Using recumbent exercise bike 2x/day (30 & 15 minutes). Diabetic polyneuropathy asso ciated with type 2 diabetes mellitus 02/11/2024 Assessment & Plan (10/28/2024 10:12 AM CDT): Chronic problem. Currently taking Gabapentin 300mg tid. Reviewed foot care; needs to lotion daily. Aware to check feet nightly, not to go barefoot. Assessment & Plan (07/19/2024 10:58 AM PROGRESSIVE DIE MAKER): Chronic problem. Currently taking Gabapentin 300mg tid. [...] go barefoot. Hypothyroidism 09/25/2023 Assessment & Plan (10/28/2024 10:13 AM CDT): Chronic problem. Currently taking Levothyroxine: 1 tab/100mcg Friday through Friday & 1.5/150mcg on Saturdays/Sundays. Will update labs. Verified that she uses mychart. Aware to check results/results letter in mychart. Will contact by phone if needed. Assessment & Plan (07/19/2024 10:58 AM PROGRESSIVE DIE MAKER): Chronic problem. Currently taking Levothyroxine: 1 tab/100mcg [...] labs April 2024. Verified that she uses [facility] [employer]. Aware to check results/results letter in [employer]. Will contact by phone if needed. Assessment & Plan (02/11/2024 4:26 PM CDT): Chronic problem. Last TSH increased to 10.50, T4 low end of normal (0.92). was to change levothyroxine: 1 tab/100mcg Friday through Friday & 1.5/150mcg on Sundays but did not. Never repeated labs. TFTs will be drawn before leaving today. Verified that she uses my[facility]. Aware to check results/results letter in [employer]. Will contact by phone if needed. Assessment & Plan (09/25/2023 11:57 AM CDT): Chronic problem. Currently taking levothyroxine 100mcg daily. Has been taking w/food & other meds. Reviewed medication scheduling: aware to take 1st thing in morning, 30-60 minutes before food/drink/other medications. TFTs will be drawn before leaving today. Verified that she uses my[facility]. Aware to check results/results letter in [employer]. Will contact by phone if needed. Class 2 severe obesity due t o excess calories with serious comorbidity and body mass index (BMI) of 35.0 to 35.9 in adult 08/20/2022 Assessment & Plan (08/20/2022 10:51 AM PROGRESSIVE DIE MAKER): Discussed healthy diet and importance of regular physical activity (20- 30min/day, 150min/wk). Discussed stationary exercises (leg lifts, arm weights/resistance) while she is dealing with R knee issues & left foot fracture. Hypertension associated with type 2 diabetes roger litus 02/27/2022 Assessment & Plan (10/28/2024 10:13 AM CDT): Chronic problem, well controlled on Lisinopril/hctz 20/12.5mg. Assessment & Plan (07/19/2024 10:58 AM PROGRESSIVE DIE MAKER): Chronic problem, well controlled on Lisinopril/hctz 20/12.5mg. Will update labs. Verified that she uses [facility] [employer]. Aware to check results/results letter in [employer]. Will contact by phone if needed. Assessment [...] lisinopril Assessment & Plan (08/19/2022 3:00 PM PROGRESSIVE DIE MAKER): Chronic problem, well controlled on current regimen. Lisinopril/hctz 20/12.5mg. No changes at this time. Assessment & Plan (06/18/2022 12:44 PM PROGRESSIVE DIE MAKER): Chronic, well controlled Importance of low salt diet and exercise were discussed Continue current meds Update MA Assessment & Plan (02/28/2022 1:44 PM CDT): Controlled on current medications, no changes. Hyperlipidemia associated with type 2 diabetes julien carritheresa 02/27/2022 Assessment & Plan (10/28/2024 10:13 AM CDT): Chronic problem, not controlled on current Rosuvastatin 40mg & fenofibrate 160mg daily. Last lipid panel: 07/19/24 LJO=846, MK=749 Assessment & Plan (07/19/2024 10:58 AM PROGRESSIVE DIE MAKER): Chronic problem, well controlled on current Rosuvastatin 40mg & fenofibrate 160mg daily. Last lipid panel: 06/10/23 LDL=70, LH=398. Will update labs. Verified that she uses [employer]. Aware to check results/results letter in [employer]. Will contact by phone if needed. Assessment & Plan (04/01/2024 9:41 AM CDT): Chronic problem, well controlled on current Rosuvastatin 40mg & fenofibrate 160mg daily. Last lipid panel: 06/10/23 LDL=70, VM=938. Assessment & Plan (02/11/2024 11:04 AM CDT): Chronic problem, well controlled on current Rosuvastatin 40mg & fenofibrate 160mg daily. Last lipid panel: 06/10/23 LDL=70, OV=004. Assessment & Plan (09/25/2023 11:10 AM CDT): Chronic problem, well controlled on current Rosuvastatin 40mg & fenofibrate 160mg daily. Last lipid panel: 06/10/23 LDL=70, WA=321. Assessment & Plan (03/18/2023 4:36 PM CDT): Chronic, well-controlled Continue statin therapy with rosuvastatin Assessment & Plan (08/19/2022 2:59 PM PROGRESSIVE DIE MAKER): Chronic problem, well controlled on current rosuvastatin 40mg daily. Last lipid panel 10/25/21: LDL=55, YO=869. No changes at this time. Assessment & Plan (02/28/2022 1:44 PM CDT): Chronic problem. On statin therapy, no changes. Type 2 diabetes mellitus wit h hyperglycemia, with long-term current use of insulin 05/03/2021 Assessment & Plan (10/28/2024 10:33 AM CDT): Chronic problem, uncontrolled. A1c improved slightly from 8.2% 07/19/24 to 7.9% Current medications: Glimepiride 4mg at lunch & [...] blood sugar over 300: take 35 units UTD on labs. UTD on DM eye exam (12/04/22 no DMR/DME [facility]). 11/2023 [facility] in [place]. Sent 3rd request letter. Discussed with Hannah Mejia: Limited [...] skin breakdown and infection. Assessment & Plan (07/19/2024 11:20 AM PROGRESSIVE DIE MAKER): Chronic problem, uncontrolled. A1c improved slightly from [...] mychart. Aware to check results/results letter in [employer]. Will contact by phone if needed. DM eye exam 11/2023 [facility] in [place]. Will send 2nd request letter. Discussed with [...] UTD on labs. DM eye exam 11/2023 [facility] in [place]. Will send 2nd request letter. Discussed with [...] UTD on labs. DM eye exam 11/2023 [facility] in [place]. Discussed with Hannah Mejia: Limited currently d/t [...] CMP lab today. Verified that she uses [facility]. Aware to check results/results letter in [employer]. Will contact by phone if needed. To call to make a diabetic eye exam. Had appt 10/2022 at [facility]--letter sent to get copy of report. [...] infection. Assessment & Plan (06/10/2023 1:04 PM PROGRESSIVE DIE MAKER): Continues to be uncontrolled Insulin regimen, explained [...] If Assessment & Plan (08/20/2022 10:52 AM PROGRESSIVE DIE MAKER): Chronic problem, uncontrolled. Has had steroid injections [...] CMP lab today. Verified that she uses [employer]. Aware to check results/results letter in [employer]. Will contact by phone if needed. To call to make a diabetic eye exam. Letter sent to [employer] to get copy of eye exam from 11/2021. Assessment & Plan (06/18/2022 12:44 PM PROGRESSIVE DIE MAKER): Uncontrolled Jardiance d/c Continue Metformin Insulin regimen [...] Encounters Date Type Department Care Team Description 11/02/2024 Telephone [facility] Diabetes and Endocrinology [address] [place] [phone] Tasneem Prather NP Surgical Clearance 11/02/2024 Orders Only [facility] Diabetes and Endocrinology [address] [place] [phone] ProviderShoshana MD 10/29/2024 Results Follow-Up [facility] Diabetes and Endocrinology [address] [place] [phone] Tasneem Prather NP 10/28/2024 10:50 AM CDT - 10/28/2024 11:59 PM CDT Hospital Encounter [address] [phone] Hypothyroidism, unspecified type Discharge Disposition: Discharge to home or self care 10/28/2024 10:45 AM CDT Lab [facility] Outpatient Lab at [address] [phone] Hyperlipidemia associated with type 2 diabetes mellitus (HCC) (Primary Dx); Hypothyroidism 10/28/2024 10:00 AM CDT Office Visit [facility] Diabetes and Endocrinology [address] [place] [phone] Tasneem Prather, DIESEL ENGINE I PIPE FITTER Type 2 diabetes mellitus with hyperglycemia, with long-term current use of insulin (HCC) (Primary Dx); Hypertension associated with type 2 diabetes mellitus (HCC); Hyperlipidemia associated with type 2 diabetes mellitus (HCC); Diabetic polyneuropathy associated with type 2 diabetes mellitus (HCC); Hypothyroidism, unspecified type 10/20/2024 Telephone [facility] Diabetes and Endocrinology [address] [place] [phone] Tasneem Prather NP Forms/questionnaires ([facility] ) 08/27/2024 Telephone [facility] Diabetes and Endocrinology [address] [place] [phone] Tasneem Prather NP Forms/questionnaires (Surgical Clearance) from Last 3 Months Surgical History Surgery [...] on file Legal Sex Female 2:31 PM PROGRESSIVE DIE MAKER Gender Identity Not on file Sexual Orientation Not on file Obstetrics History Last Filed Vital Signs Vital Sign Reading Time Taken Comments Blood Pressure 122/78 10/28/2024 9:50 AM CDT Pulse 65 10/28/2024 9:50 AM CDT Temperature - - Respiratory Rate 18 10/28/2024 9:50 AM CDT Oxygen Saturation - - Inhaled Oxygen Concentration - - Weight 104.3 kg (230 lb) 10/28/2024 9:50 AM CDT Height 157.5 cm (5' 2.01 ) 10/28/2024 9:50 AM CD T Body Mass Index 42.06 10/28/2024 9:50 AM CDT Plan of Treatment Health Maintenance Due Date Last Done Comments Colon Cancer Screening-Colonoscopy 1960 Hepatitis C Screening 1960 Osteoporosis Screening-Bone Density Scan 1960 Hepatitis B Screening 1977 Zoster Vaccine (1 of 2) 2009 Pneumococcal vaccine 65+ (2 of 2 - PCV) 07/10/2017 07/10/2016 DTaP/Tdap/Td Vaccine (2 - Td or Tdap) 07/24/2020 07/24/2010 Breast Cancer Screening-Mammogram 04/20/2022 021 Covid-19 Vaccine (4 - 2023-2 5 season) 2024 06/19/2021, 10/10/2020, 09/19/2020 Well Visit 65+ 2024 Depression Screening 06/10/2024 06/10/2023, 06/18/2022, 10/25/2021, Additional history exists Fall Risk Assessment 06/10/2024 06/10/2023 Hemoglobin A1C 04/29/2025 10/28/2024, 07/07, 02/11/2024, Additional history exists Albumin Creatinine Ratio, Urine 07/19/2025 07/19/2024, 06/10/2023, 06/18/2022, Additional history exists Lipid Panel 07/19/2025 07/19/2024, 11/2022, 10/25/2021 eGFR 07/19/2025 07/19/2024, 0307/2023, 08/20/2022, Additional history exists Foot Exam 10/28/2025 10/28/2024, 03/2 07/2023, 02/28/2022, Additional history exists Dilated Eye Exam 11/25/2025 11/26/2023, 12/04/2022 Influenza Vaccine Completed 08/11/2024, , 05/12/2019, Additional history exists Procedures Procedure Name Priority Date/Time Associated Diagnosis Comments T4, FREE Routine 10/28/2024 10:50 AM CDT Hypothyroidism, unspecified type TSH Routine 10/28/2024 10:50 AM CDT Hypothyroidism, unspecified type POCT GLUCOSE Routine 10/28/2024 9:57 AM CDT Type 2 diabetes mellitus with hyperglycemia, with long-term current use of insulin (HCC) POCT HEMOGLOBIN A1C Routine 10/28/2024 9 :57 AM CDT Type 2 diabetes mellitus with hyperglycemia, with long-term current use of insulin (HCC) EGFR Routine 07/19/2024 11:32 AM PROGRESSIVE DIE MAKER Type 2 diabetes mellitus with hyperglycemia, with long-term current use of insulin (HCC) Hypertension associated with type 2 diabetes mellitus (HCC) LIPID PANEL Routine 07/19/2024 11:32 AM PROGRESSIVE DIE MAKER Type 2 diabetes mellitus with hyperglycemia, with long-term current use of insulin (HCC) Hyperlipidemia associated with type 2 diabetes mellitus (HCC) ALBUMIN CREATININE RATIO, URINE Routine 07/19/2024 11:32 AM PROGRESSIVE DIE MAKER Type 2 diabetes mellitus with hyperglycemia, with long-term current use of insulin (HCC) HM DIABETES EYE EXAM Routine 11/26/2023 8:22 AM CDT from Last 3 Months or Most Recently Relevant to Health Maintenance Results * (ABNORMAL) TSH (10/28/2024 10:50 AM CDT) Thyroid Stimulating Hormone 5.06(H) 0.30 - 4.20 mcIUnit/mL Blood 10/28/2024 10:5 0 AM CDT 10/28/2024 3:13 PM CDT us Tasneemdamon Prather DIESEL ENGINE I PIPE FITTER LAB BLOOD ORDERABLES Carolann l Result ALEX LUNSFORD [address] [facility] [place] [place] [address] * T4, free (10/28/2024 10:50 AM CDT) [facility] Free T4 1.18 0.90 - 1.70 ng/dL Blood 10/28/2024 10:5 0 AM CDT 10/28/2024 3:13 PM CDT us Tasneemdamon Prather DIESEL ENGINE I PIPE FITTER LAB BLOOD ORDERABLES Carolann l Result Performing Organization Address City/[facility] [[email or web address]] Co de Phone Number ALEX LUNSFORD [id number] [facility] [place] [address] * (ABNORMAL) POCT hemoglobin A1c (10/28/2024 9:57 AM CDT) [facility] Hemoglobin A1C, POC 7.9 4.0 - 5.6 % Blood 10/28/2024 9:57 AM CDT us Tasneemdamon Prather DIESEL ENGINE I PIPE FITTER POINT OF CARE TEST ORDERA BLES Final Result * (ABNORMAL) POCT glucose (10/28/2024 9:57 AM CDT) [facility] Glucose Blood, POC 152 mg/dL Blood 10/28/2024 9:57 AM CDT us Tasneem Elodia Prather DIESEL ENGINE I PIPE FITTER POINT OF CARE TEST ORDERA BLES Final Result * eGFR (07/19/2024 11:32 AM PROGRESSIVE DIE MAKER) [facility] eGFR >90 >=60 mL/min/1. 73 m2 [...] interpretive data was last reviewed 2021. Blood [id number]|2024-11-17 08:58:00|2024-11-17 08:58:00|XMS_ITS|LARRY ABDUL|External Medical Summaries|[id number]|" Referral Summary Created on: November 17, 2024 Hannah Mejia : 1960 Sex: Female Author Organization [address] Address [address] [place] [phone] Care Team Providers Care Dishwasher Name Role Phone Adolfo Lyn Primary Care Provider + Kishore Omer MD Unavailable [phone] Encounters Date Type Department Care Team Description 11/02/2024 Telephone [facility] Diabetes and Endocrinology [address] [place] [phone] Tasneem Prather NP Surgical Clearance 11/02/2024 Orders Only [facility] Diabetes and Endocrinology [address] [place] [phone] ProviderShoshana MD 10/29/2024 Results Follow-Up [facility] Diabetes and Endocrinology [address] [place] [phone] Tasneem Prather NP 10/28/2024 10:50 AM CDT - 10/28/2024 11:59 PM CDT Hospital Encounter [address] [address] Hypothyroidism, unspecified type Discharge Disposition: Discharge to home or self care 10/28/2024 10:45 AM CDT Lab [facility] Outpatient Lab at [address] [phone] Hyperlipidemia associated with type 2 diabetes mellitus (HCC) (Primary Dx); Hypothyroidism 10/28/2024 10:00 AM CDT Office Visit [facility] Diabetes and Endocrinology [address] [place] [phone] Tasneem Prather NP Type 2 diabetes mellitus with hyperglycemia, with long-term current use of insulin (HCC) (Primary Dx); Hypertension associated with type 2 diabetes mellitus (HCC); Hyperlipidemia associated with type 2 diabetes mellitus (HCC); Diabetic polyneuropathy associated with type 2 diabetes mellitus (HCC); Hypothyroidism, unspecified type 10/20/2024 Telephone [facility] Endocrinology [address] [place] [phone] Tasneem Prather NP Forms/questionnaires ([facility] ) 08/27/2024 Telephone [facility] Endocrinology [address] [place] [phone] Tasneem Prather NP Forms/questionnaires (Surgical Clearance) from Last 3 Months Allergies Active Allergy Reactions Criticality Noted Date Comments Codeine Rash Medium 12/25/2023 Hydrocodone-Acetaminophe n Hives,Itching,Swell ing,Rash High 11/21/2016 Throat swelled,hives,troub le breathing Iodinated Contrast Media Unknown,Rash Medium Empagliflozin Diarrhea Medium 06/18/2022 Meperidine Rash Medium 12/25/2023 Qoufawzcfsvz-Vpm-Owohzhz e Unknown 12/25/2023 Semaglutide Diarrhea,Stomach upset High 06/18/2022 Medications cetirizine (ZyrTEC) 10 mg tablet cetirizine 10 mg tablet Active famotidine (PEPCID) 20 mg tablet famotidine 20 mg tablet Active fenofibrate (TRIGLIDE) 160 mg tablet fenofibrate 160 mg tablet Active lisinopril-hydroC HLOROthiazide (ZESTORETIC) 20-12.5 mg per tablet lisinopril 20 mg-hydrochlorot hiazide 12.5 mg tablet 970 Active montelukast (SINGULAIR) 10 mg tablet montelukast 10 mg tablet Active rosuvastatin (CRESTOR) 40 mg tablet rosuvastatin 40 mg tablet Active sertraline (ZOLOFT) 100 mg tablet sertraline 100 mg tablet 970 Active traMADoL (ULTRAM) 50 mg tablet 0 Active fluticasone propionate (FLONASE) 50 mcg/actuation nasal spray Active cyclobenzaprine (FLEXERIL) 10 mg tablet Active ibuprofen (ADVIL,MOTRIN) 200 mg tab/cap ibuprofen Activ e neomycin-polymyxi n-dexAMETHasone (MAXITROL) 3.5mg/mL-10,000 unit/mL-0.1 % ophthalmic suspension neomycin-polymy panfilo-dexameth 3.5 mg/mL-10,000 unit/mL-0.1% eye drops Active aspirin 81 mg enteric coated tablet Active levothyroxine (SYNTHROID) 100 mcg tablet Active rOPINIRole (REQUIP) 2 mg [address] Active pantoprazole DR (PROTONIX) 40 mg EC tablet Active glucagon 1 mg kitIndications:Ty pe 2 diabetes mellitus with hyperglycemia, with long-term current use of insulin (HCC) Use as directed for low blood sugar. 1 kit 11 023 Active alcohol swabs (Easy Touch Alcohol Prep Pads) pads, medicated USE TO TEST THREE TIMES DAILY 300 each 3 023 Active sulfaSALAzine (AZULFIDINE) 500 mg tablet Take 1 tablet (500 mg total) by mouth 2 (two) times a day 023 Active Ventolin HFA 90 mcg/actuation inhaler 023 Active ARIPiprazole (ABILIFY) 2 mg tablet 023 Active ondansetron (ZOFRAN) 8 mg tablet 023 Active blood-glucose meter kitIndications:Ty pe 2 diabetes mellitus with hyperglycemia, with long-term current use of insulin ([facility]) Use daily or as directed for monitoring of diabetes 1 kit 024 Active blood glucose diagnostic (OneTouch Ultra Test) stripIndications: Type 2 diabetes mellitus with hyperglycemia, with long-term current use of insulin ([facility]) USE TO TEST BLOOD SUGAR FOUR TIMES DAILY 100 strip 3 024 Active dicyclomine (BENTYL) 10 mg capsule 024 Active estradioL (ESTRACE) 0.01 % (0.1 mg/gram) vaginal cream Active naproxen (NAPROSYN) 500 mg tablet 024 Active ofloxacin (FLOXIN) 0.3 % otic solution Instill 3 drops twice a day by otic route. Active OneTouch Ultra2 Meter [facility] 024 Active ondansetron (ZOFRAN) 4 mg tablet 024 Active blood-glucose meter,continuous (Dexcom G6 [employer]) miscIndications:T ype 2 diabetes mellitus with hyperglycemia, with long-term current use of insulin ([facility]) Continuous glucose monitor. Current product delivery specialist not alerting to low readings 1 each 024 Active Dexcom G6 Sensor deviceIndications :Type 2 diabetes mellitus with hyperglycemia, with long-term current use of insulin ([facility]) Dx: E11.65 insulin dependent. Change sensor every 10 days. 9 each 3 024 Active Dexcom G6 Transmitter deviceIndications :Type 2 diabetes mellitus with hyperglycemia, with long-term current use of insulin ([facility]) Dx: E11.65 insulin dependent. Change transmitter every 90 days. 1 each 3 024 Active calcium carbonate-vitamin D3 (CALTRATE 600 + D) 1500 mg (600 mg elemental) -400 units per tablet Take 1 tablet twice a day by oral route with meal(s) for 30 days. 024 Active methylPREDNISolon e acetate (DEPO-MedroL) 80 mg/mL injection Take 1 mL by injection route. Active gabapentin (NEURONTIN) 300 mg capsuleIndication s:Diabetic polyneuropathy associated with type 2 diabetes mellitus (HCC) Take 1 capsule (300 mg total) by mouth 3 (three) times a day 270 capsule 3 024 2024 Active blood-glucose sensor (DEXCOM G7 SENSOR MIS) Active glimepiride (AMARYL) 4 mg tabletIndications :type 2 diabetes mellitus Take 1 tablet (4 mg total) by mouth 2 (two) times a day before lunch and dinner 180 tablet 3 025 2025 Active insulin glargine (LANTUS) 100 unit/mL (3 mL) pen for injectionIndicati ons:Type 2 diabetes mellitus with hyperglycemia, with long-term current use of insulin ([facility]) Inject 75 Units under the skin every morning 75 mL 3 025 2025 Active insulin lispro (HumaLOG) 100 unit/mL pen for injectionIndicati ons:type 2 diabetes mellitus Inject 60-75 Units under the skin 3 (three) times a day before meals 205 mL 3 025 2025 Active pen needle, diabetic (BD Lily 2nd Gen Pen Needle) 32 gauge x 5/32 needleIndications :Type 2 diabetes mellitus with hyperglycemia, with long-term current use of insulin ([facility]) Use to inject insulin 5-6 times/day 180 each 11 025 Active Januvia 100 mg tablet Active lancets (OneTouch Delica Plus Lancet) 30 gauge miscIndications:T ype 2 diabetes mellitus with hyperglycemia, with long-term current use of insulin ([facility]) USE TO TEST BLOOD SUGAR LEVELS FOUR TIMES DAILY 100 each 3 025 Active metFORMIN (GLUCOPHAGE) 500 mg tabletIndications :Type 2 diabetes mellitus with hyperglycemia, with long-term current use of insulin ([facility]) Take 1 tablet (500 mg total) by mouth 2 (two) times a day with meals 180 tablet 3 024 2024 Discontinued(N o longer taking - Do not display on AVS) lancets (OneTouch Delica Plus Lancet) 30 gauge miscIndications:T ype 2 diabetes mellitus with hyperglycemia, with long-term current use of insulin ([facility]) USE TO TEST BLOOD SUGAR LEVELS FOUR TIMES DAILY 100 each 3 024 2024 Discontinued Active Problems Problem Noted Date Diagnosed Date Morbid (severe) obesity due to excess calories 0 02/11/2024 Body mass index 40.0-44.9, adult ([facility]) 02/10 Class 3 severe obesity due t o excess calories with serious comorbidity and body mass index (BMI) of 40.0 to 44.9 in adult 02/11/2024 Assessment & Plan (02/11/2024 11:14 AM CDT): Discussed healthy diet and importance of regular physical activity (20- 30min/day, 150min/wk). Using recumbent exercise bike 2x/day (30 & 15 minutes). Diabetic polyneuropathy asso ciated with type 2 diabetes mellitus 02/11/2024 Assessment & Plan (10/28/2024 10:12 AM CDT): Chronic problem. Currently taking Gabapentin 300mg tid. Reviewed foot care; needs to lotion daily. Aware to check feet nightly, not to go barefoot. Assessment & Plan (07/19/2024 10:58 AM PROGRESSIVE DIE MAKER): Chronic problem. Currently taking Gabapentin 300mg tid. [...] go barefoot. Hypothyroidism 09/25/2023 Assessment & Plan (10/28/2024 10:13 AM CDT): Chronic problem. Currently taking Levothyroxine: 1 tab/100mcg Friday through Friday & 1.5/150mcg on Saturdays/Sundays. Will update labs. Verified that she uses mychart. Aware to check results/results letter in mychart. Will contact by phone if needed. Assessment & Plan (07/19/2024 10:58 AM PROGRESSIVE DIE MAKER): Chronic problem. Currently taking Levothyroxine: 1 tab/100mcg [...] mychart. Aware to check results/results letter in [employer]. Will contact by phone if needed. Class 2 severe obesity due t o excess calories with serious comorbidity and body mass index (BMI) of 35.0 to 35.9 in adult 08/20/2022 Assessment & Plan (08/20/2022 10:51 AM PROGRESSIVE DIE MAKER): Discussed healthy diet and importance of regular physical activity (20- 30min/day, 150min/wk). Discussed stationary exercises (leg lifts, arm weights/resistance) while she is dealing with R knee issues & left foot fracture. Hypertension associated with type 2 diabetes roger litus 02/27/2022 Assessment & Plan (10/28/2024 10:13 AM CDT): Chronic problem, well controlled on Lisinopril/hctz 20/12.5mg. Assessment & Plan (07/19/2024 10:58 AM PROGRESSIVE DIE MAKER): Chronic problem, well controlled on Lisinopril/hctz 20/12.5mg. Will update labs. Verified that she uses mychart. Aware to check results/results letter in [employer]. Will contact by phone if needed. Assessment [...] lisinopril Assessment & Plan (08/19/2022 3:00 PM PROGRESSIVE DIE MAKER): Chronic problem, well controlled on current regimen. Lisinopril/hctz 20/12.5mg. No changes at this time. Assessment & Plan (06/18/2022 12:44 PM PROGRESSIVE DIE MAKER): Chronic, well controlled Importance of low salt diet and exercise were discussed Continue current meds Update MA Assessment & Plan (02/28/2022 1:44 PM CDT): Controlled on current medications, no changes. Hyperlipidemia associated with type 2 diabetes julien lisa 02/27/2022 Assessment & Plan (10/28/2024 10:13 AM CDT): Chronic problem, not controlled on current Rosuvastatin 40mg & fenofibrate 160mg daily. Last lipid panel: 07/19/24 UTK=077, BK=831 Assessment & Plan (07/19/2024 10:58 AM PROGRESSIVE DIE MAKER): Chronic problem, well controlled on current Rosuvastatin 40mg & fenofibrate 160mg daily. Last lipid panel: 06/10/23 LDL=70, CQ=313. Will update labs. Verified that she uses [employer]. Aware to check results/results letter in [employer]. Will contact by phone if needed. Assessment & Plan (04/01/2024 9:41 AM CDT): Chronic problem, well controlled on current Rosuvastatin 40mg & fenofibrate 160mg daily. Last lipid panel: 06/10/23 LDL=70, ZD=621. Assessment & Plan (02/11/2024 11:04 AM CDT): Chronic problem, well controlled on current Rosuvastatin 40mg & fenofibrate 160mg daily. Last lipid panel: 06/10/23 LDL=70, JD=275. Assessment & Plan (09/25/2023 11:10 AM CDT): Chronic problem, well controlled on current Rosuvastatin 40mg & fenofibrate 160mg daily. Last lipid panel: 06/10/23 LDL=70, DK=362. Assessment & Plan (03/18/2023 4:36 PM CDT): Chronic, well-controlled Continue statin therapy with rosuvastatin Assessment & Plan (08/19/2022 2:59 PM PROGRESSIVE DIE MAKER): Chronic problem, well controlled on current rosuvastatin 40mg daily. Last lipid panel 10/25/21: LDL=55, AT=631. No changes at this time. Assessment & Plan (02/28/2022 1:44 PM CDT): Chronic problem. On statin therapy, no changes. Type 2 diabetes mellitus wit h hyperglycemia, with long-term current use of insulin 05/03/2021 Assessment & Plan (10/28/2024 10:33 AM CDT): Chronic problem, uncontrolled. A1c improved slightly from 8.2% 07/19/24 to 7.9% Current medications: Glimepiride 4mg at lunch & [...] blood sugar over 300: take 35 units UTD on labs. UTD on DM eye exam (12/04/22 no DMR/DME [facility]). 11/2023 [facility] in [place]. Sent 3rd request letter. Discussed with Hannah Mejia: Limited [...] skin breakdown and infection. Assessment & Plan (07/19/2024 11:20 AM PROGRESSIVE DIE MAKER): Chronic problem, uncontrolled. A1c improved slightly from [...] mychart. Aware to check results/results letter in [employer]. Will contact by phone if needed. DM eye exam 11/2023 [facility] in [place]. Will send 2nd request letter. Discussed with [...] UTD on labs. DM eye exam 11/2023 [facility] in [place]. Will send 2nd request letter. Discussed with [...] UTD on labs. DM eye exam 11/2023 [facility] [place]. Discussed with Hannah Mejia: Limited currently d/t [...] CMP lab today. Verified that she uses [facility] to check results/results letter in [employer]. Will contact by phone if needed. To call to make a diabetic eye exam. Had appt 10/2022 at [facility]--letter sent to get copy of report. [...] infection. Assessment & Plan (06/10/2023 1:04 PM PROGRESSIVE DIE MAKER): Continues to be uncontrolled Insulin regimen, explained [...] If Assessment & Plan (08/20/2022 10:52 AM PROGRESSIVE DIE MAKER): Chronic problem, uncontrolled. Has had steroid injections [...] CMP lab today. Verified that she uses [employer]. Aware to check results/results letter in [employer]. Will contact by phone if needed. To call to make a diabetic eye exam. Letter sent to [facility] to get copy of eye exam from 11/2021. Assessment & Plan (06/18/2022 12:44 PM PROGRESSIVE DIE MAKER): Uncontrolled Jardiance d/c Continue Metformin Insulin regimen [...] on file Legal Sex Female 2:31 PM PROGRESSIVE DIE MAKER Gender Identity Not on file Sexual Orientation Not on file Last Filed Vital Signs Vital Sign Reading Time Taken Comments Blood Pressure 122/78 10/28/2024 9:50 AM CDT Pulse 65 10/28/2024 9:50 AM CDT Temperature - - Respiratory Rate 18 10/28/2024 9:50 AM CDT Oxygen Saturation - - Inhaled Oxygen Concentration - - Weight 104.3 kg (230 lb) 10/28/2024 9:50 AM CDT Height 157.5 cm (5' 2.01 ) 10/28/2024 9:50 AM CD T Body Mass Index 42.06 10/28/2024 9:50 AM CDT Plan of Treatment Not on file Procedures Procedure Name Priority Date/Time Associated Diagnosis Comments T4, FREE Routine 10/28/2024 10:50 AM CDT Hypothyroidism, unspecified type TSH Routine 10/28/2024 10:50 AM CDT Hypothyroidism, unspecified type POCT GLUCOSE Routine 10/28/2024 9:57 AM CDT Type 2 diabetes mellitus with hyperglycemia, with long-term current use of insulin (HCC) POCT HEMOGLOBIN A1C Routine 10/28/2024 9 :57 AM CDT Type 2 diabetes mellitus with hyperglycemia, with long-term current use of insulin (HCC) EGFR Routine 07/19/2024 11:32 AM PROGRESSIVE DIE MAKER Type 2 diabetes mellitus with hyperglycemia, with long-term current use of insulin (HCC) Hypertension associated with type 2 diabetes mellitus (HCC) LIPID PANEL Routine 07/19/2024 11:32 AM PROGRESSIVE DIE MAKER Type 2 diabetes mellitus with hyperglycemia, with long-term current use of insulin (HCC) Hyperlipidemia associated with type 2 diabetes mellitus (HCC) ALBUMIN CREATININE RATIO, URINE Routine 07/19/2024 11:32 AM PROGRESSIVE DIE MAKER Type 2 diabetes mellitus with hyperglycemia, with long-term current use of insulin (HCC) HM DIABETES EYE EXAM Routine 11/26/2023 8:22 AM CDT from Last 3 Months or Most Recently Relevant to Health Maintenance Results * (ABNORMAL) TSH (10/28/2024 10:50 AM CDT) Thyroid Stimulating Hormone 5.06(H) 0.30 - 4.20 mcIUnit/mL Blood 10/28/2024 10:5 0 AM CDT 10/28/2024 3:13 PM CDT us Tasneem Elodia Prather DIESEL ENGINE I PIPE FITTER LAB BLOOD ORDERABLES Carolann l Result Performing Organization Address [facility]/ZIP Co de Phone Number ALEX [phone] [address] [place] [address] * T4, free (10/28/2024 10:50 AM CDT) Pathologist [facility] Free T4 1.18 0.90 - 1.70 ng/dL Blood 10/28/2024 10:5 0 AM CDT 10/28/2024 3:13 PM CDT us Tasneem Prather NP LAB [place]LOOD [place] [id number] [address] [employer] [place] [address] * (ABNORMAL) POCT hemoglobin A1c (10/28/2024 9:57 AM CDT) Hemoglobin A1C, POC 7.9 4.0 - 5.6 % Blood 10/28/2024 9:57 AM CDT us Tasneem Prather NP POINT OF CARE TEST ORDERA BLES Final Result * (ABNORMAL) POCT glucose (10/28/2024 9:57 AM CDT) Pathologist [facility] Glucose Blood, POC 152 mg/dL Blood 10/28/2024 9:57 AM CDT us Tasneem Prather NP POINT OF CARE TEST ORDERA BLES Final Result * eGFR (07/19/2024 11:32 AM PROGRESSIVE DIE MAKER) Pathologist [facility] eGFR >90 >=60 mL/min/1. 73 m2 [...] reviewed 2021. Blood 07/19/2024 11:3 2 AM PROGRESSIVE DIE MAKER 07/19/2024 5:18 PM PROGRESSIVE DIE MAKER us Tasneem Prather NP LAB BLOOD ORDERABLES Carolann l Result [place]LEX [address] Department [place] [address] * Albumin Creatinine Ratio, Urine (07/19/2024 11:32 AM PROGRESSIVE DIE MAKER) Albumin Ur 18.2 mg/L Comment: Interpretive Data No reference range established. Current interpretive data was last revised 2018. Creatinine Ur 92.3 mg/dL [facility] Comment: Interpretive Data No reference range established. Current interpretive data was last revised 2018. Albumin Creatinine Ratio, Ur 20 1 - 29 mg/g [facility] Urine 07/19/2024 11:3 2 AM PROGRESSIVE DIE MAKER 07/19/2024 5:00 PM PROGRESSIVE DIE MAKER us Tasneem Prather DIESEL ENGINE I PIPE FITTER LAB URINE ORDERABLES Carolann l Result [facility] [address] [facility] [place] [address] * (ABNORMAL) Lipid panel (07/19/2024 11:32 AM PROGRESSIVE DIE MAKER) Cholesterol 222(H) 30 - 199 mg/dL Comment: [...] revised on 2018. Triglycerides 534(H) <=149 mg/dL [facility] Comment: Interpretive Data Ages < or = 9 years
== END 2024-11-17 08:47 | disposition home or self-care (01) ==
PROVIDERS: PCP Physician Assistant; Visit Provider Physician Assistant
DX: Z01.818 Encounter for other preprocedural examination (principal)
CPT/HCPCS: 71046

== ENCOUNTER 2025-03-15 12:26 | Outpatient (CLI) | payer MEDICARE, SELFPAY ==
--- NOTE | ~2025-03-15 | MM_ITS ---
EXAMINATION: MM screening carmelina BI w nereida HISTORY: Screening TECHNIQUE: Craniocaudal and mediolateral oblique 3-D tomosynthesis images were obtained and synthetic 2-D images were generated. CAD analysis was submitted and interpreted. COMPARISON: None available. BREAST PARENCHYMAL COMPOSITION: There are scattered areas of fibroglandular density. FINDINGS: There is no evidence of suspicious mass, calcification, or architectural distortion to suggest malignancy in either breast. Scattered benign-appearing calcifications are present. IMPRESSION: 1. No mammographic evidence of malignancy. 2. Recommend routine screening mammography in one year. BI-RADS Category 2: Benign finding(s). Reviewed, dictated and finalized at location B.
== END 2025-03-15 12:27 | disposition home or self-care (01) ==
PROVIDERS: PCP Physician Assistant; Visit Provider Physician Assistant
DX: Z12.31 Encounter for screening mammogram for malignant neoplasm of breast (principal)
CPT/HCPCS: 77063; 77067

== ENCOUNTER 2025-05-20 08:57 | Emergency (ER) | payer MEDICARE, SELFPAY ==
[2025-05-20] VITALS (8 sets, daily range): BP systolic 136–164; BP diastolic 67–81; PULSE 68–71; RESP 18–20; TEMP 36.7; O2SAT 93–100
--- NOTE | ~2025-05-20 | CT_ITS ---
EXAM/PROCEDURE: CT abdomen pelvis wo con HISTORY: abd pain, N/V/D, hx UC COMPARISON: None available. TECHNIQUE: Noncontrast enhanced CT of the abdomen and pelvis FINDINGS: The bowel gas pattern is nonobstructive with no free air free fluid or pneumatosis seen. Moderately severe sigmoid diverticular disease with no gross acute diverticulitis. Normal size appendix and aorta. Cholelithiasis with no gross CT evidence of acute cholecystitis pancreatitis or biliary ductal dilatation. No hydroureteronephrosis. No urolithiasis seen. Urinary bladder is nondistended with no obvious acute process or abnormality seen. Patient may be status post hysterectomy. Moderately severe fatty liver changes. Stomach is unopacified and nondistended but no focal acute process. Spleen unremarkable as are the adrenal glands. No bulky lymphadenopathy or masses seen. Lung bases are clear. Heart size normal with trace pericardial effusion. IMPRESSION: Directed noncontrast exam demonstrating no focal acute process to explain source of patient's symptoms. Reviewed, dictated and finalized at location A. [employer] SCI[employer] IMPRESSION: Directed noncontrast exam demonstrating no focal acute process to e xplain source of patient's symptoms.
--- OUTSIDE RECORDS SUMMARY | 2025-05-20 09:25 | XMS_ITS | Clinical Summary ---
Author Organization [address] Address [address] [place] [place] [phone] Care Team Providers Care Tightener Name Role Phone Adolfo Lyn Primary Care Provider + Kishore Omer MD Unavailable Allergies Active Allergy Reactions Criticality Noted Date Comments Codeine Rash Medium 12/25/2023 Hydrocodone-Acetaminophe n Hives,Itching,Swell ing,Rash High 11/21/2016 Throat swelled,hives,troub le breathing Iodinated Contrast Media Unknown,Rash Medium Empagliflozin Diarrhea Medium 06/18/2022 Meperidine Rash Medium 12/25/2023 Epdsrdmflcem-Bey-Rfysggf e Unknown 12/25/2023 Semaglutide Diarrhea,Stomach upset High [...] Active traMADoL (ULTRAM) 50 mg tablet 0 021 Active fluticasone propionate (FLONASE) 50 mcg/actuation nasal spray 022 Active cyclobenzaprine (FLEXERIL) 10 mg tablet Active ibuprofen (ADVIL,MOTRIN) 200 mg tab/cap ibuprofen Activ e neomycin-polymyxi n-dexAMETHasone (MAXITROL) 3.5mg/mL-10,000 unit/mL-0.1 % ophthalmic suspension neomycin-polymy panfilo-dexameth 3.5 mg/mL-10,000 unit/mL-0.1% eye drops Active aspirin 81 mg enteric coated tablet Active levothyroxine (SYNTHROID) 100 mcg tablet 022 Active rOPINIRole (REQUIP) 2 mg tablet Active pantoprazole DR (PROTONIX) 40 mg EC tablet Active alcohol swabs (Easy Touch Alcohol Prep Pads) pads, medicated USE TO TEST THREE TIMES DAILY 300 each 3 023 Active sulfaSALAzine (AZULFIDINE) 500 mg tablet Take 1 tablet (500 mg total) by mouth 2 (two) times a day 023 Active Ventolin HFA 90 mcg/actuation inhaler 023 Active ARIPiprazole (ABILIFY) 2 mg tablet 023 Active dicyclomine (BENTYL) 10 mg capsule 024 Active estradioL (ESTRACE) 0.01 % (0.1 mg/gram) vaginal cream Active naproxen (NAPROSYN) 500 mg tablet 024 Active ondansetron (ZOFRAN) 4 mg tablet Active blood-glucose meter,continuous (Dexcom G6 Disaster Or Damage Control Specialist) miscIndications:T ype 2 diabetes mellitus with hyperglycemia, with long-term current use of insulin ([facility]) Continuous glucose monitor. Current trade embalmer not alerting to low readings 1 each 024 Active calcium carbonate-vitamin D3 (CALTRATE 600 + D) 1500 mg (600 mg elemental) -400 units per tablet Take 1 tablet twice a day by oral route with meal(s) for 30 days. 024 Active insulin glargine (LANTUS) 100 unit/mL (3 mL) pen for injectionIndicati ons:Type 2 diabetes mellitus with hyperglycemia, with long-term current use of insulin ([facility]) Inject 75 Units under the skin every [...] long-term current use of insulin ([facility]) Use to inject insulin 5-6 times/day 180 each 11 025 Active Januvia 100 mg tablet 025 Active erythromycin (ILOTYCIN) ophthalmic ointment 025 Active hydrOXYzine (ATARAX) 10 mg tablet 1 to 2 tabs po as needed up to 3 times daily Active olopatadine (Pataday Once Daily Relief) 0.2 % ophthalmic solution Instill 1 drop by ophthalmic route. 025 Active glucagon 1 mg kitIndications:Ty pe 2 diabetes mellitus with hyperglycemia, with long-term current use of insulin ([facility]) USE DIRECTED FOR LOW BLOOD SUGAR 1 mL 1 025 Active lancets (OneTouch Delica Plus Lancet) 30 gauge miscIndications:T ype 2 diabetes mellitus with hyperglycemia, with long-term current use of insulin ([facility]) USE TO TEST BLOOD SUGAR LEVELS FOUR TIMES DAILY 100 each 3 025 Active Dexcom G6 Sensor deviceIndications :Type 2 diabetes mellitus with hyperglycemia, with long-term current use of insulin ([facility]) USE TO MONITOR GLUCOSE, CHANGE EVERY 10 DAYS 9 each 025 Active Dexcom G6 Transmitter deviceIndications :Type 2 diabetes mellitus with hyperglycemia, with long-term current use of insulin ([facility]) USE TO MONITOR GLUCOSE, CHANGE EVERY 90 DAYS 1 each 025 Active glimepiride (AMARYL) 4 mg tabletIndications :Type 2 diabetes mellitus with hyperglycemia, with long-term current use of insulin ([facility]) TAKE 1 TABLET(4 MG) BY MOUTH TWICE DAILY BEFORE LUNCH AND DINNER 180 tablet 3 Active tirzepatide (Mounjaro) 2.5 mg/0.5 mL pen injector injectionIndicati ons:type 2 diabetes mellitus Inject 0.5 mL (2.5 mg total) under the skin once a week 2 mL 11 025 2025 Active Contour Next Test Strips stripIndications: Type 2 diabetes mellitus with hyperglycemia, with long-term current use of insulin ([facility]) Check blood sugar 3 times daily if CGM failure 100 strip 3 Active Contour Next EZ Meter miscIndications:T ype 2 diabetes mellitus with hyperglycemia, with long-term current use of insulin ([facility]) Check blood sugar 3 times daily if CGM failure 1 each Active gabapentin (NEURONTIN) 300 mg capsuleIndication s:Diabetic polyneuropathy associated with type 2 diabetes mellitus ([facility]) TAKE 1 CAPSULE(300 MG) BY MOUTH THREE TIMES DAILY 270 capsule 3 025 Active gabapentin (NEURONTIN) 300 mg capsuleIndication s:Diabetic polyneuropathy associated with type 2 diabetes mellitus ([facility]) Take 1 capsule (300 mg total) by mouth 3 (three) times a day 270 capsule 3 024 2024 Discontinued Active Problems Problem Noted Date Diagnosed Date Morbid (severe) obesity due to excess calories 0 02/11/2024 Body mass index 40.0-44.9, adult ([facility]) 02/10 Class 3 severe obesity due t [...] 2 diabetes mellitus 02/11/2024 Assessment & Plan (04/13/2025 9:43 AM CDT): Chronic problem. Currently taking Gabapentin 300mg tid. Reviewed foot care; needs to lotion daily. Aware to check feet nightly, not to go barefoot. Assessment & Plan (01/11/2025 9:51 AM CDT): Chronic problem. Currently taking Gabapentin 300mg tid. Reviewed foot care; needs to lotion daily. Aware to check feet nightly, not to go barefoot. Assessment & Plan (10/28/2024 10:12 AM CDT): Chronic problem. Currently taking Gabapentin 300mg tid. Reviewed foot care; needs to lotion daily. Aware to check feet nightly, not to go barefoot. Assessment & Plan (07/19/2024 10:58 AM [employer]): Chronic problem. Currently taking Gabapentin 300mg tid. [...] go barefoot. Hypothyroidism 09/25/2023 Assessment & Plan (04/13/2025 9:44 AM CDT): Chronic problem. Currently taking Levothyroxine: 1 tab/100mcg Friday through Friday & 2 tabs/200mcg on Saturdays/Sundays (10/29/24). Will update labs. Verified that she uses mychart. Aware to check results/results letter in [employer]. Will contact by phone if needed. Assessment & Plan (01/11/2025 9:53 AM CDT): Chronic problem. Currently taking Levothyroxine: 1 tab/100mcg Friday through Friday & 2 tabs/200mcg on Saturdays/Sundays. Will update labs. Verified that she uses [facility]. Aware to check results/results letter in [employer]. Will contact by phone if needed. Assessment & Plan (10/28/2024 10:13 AM CDT): Chronic problem. Currently taking Levothyroxine: 1 tab/100mcg Friday through Friday & 1.5/150mcg on Saturdays/Sundays. Will update labs. Verified that she uses my[employer]. Aware to check results/results letter in [employer]. Will contact by phone if needed. Assessment & Plan (07/19/2024 10:58 AM [employer]): Chronic problem. Currently taking Levothyroxine: 1 tab/100mcg [...] mychart. Will contact by phone if needed. Class 2 severe obesity due t o excess calories with serious comorbidity and body mass index (BMI) of 35.0 to 35.9 in adult 08/20/2022 Assessment & Plan (08/20/2022 10:51 AM [employer]): Discussed healthy diet and importance of regular physical activity (20- 30min/day, 150min/wk). Discussed stationary exercises (leg lifts, arm weights/resistance) while she is dealing with R knee issues & left foot fracture. Hypertension associated with type 2 diabetes roger litus 02/27/2022 Assessment & Plan (04/13/2025 9:43 AM CDT): Chronic problem, well controlled on Lisinopril/hctz 20-12.5mg. Assessment & Plan (01/11/2025 9:52 AM CDT): Chronic problem, well controlled on Lisinopril/hctz 20-12.5mg. Assessment & Plan (10/28/2024 10:13 AM CDT): Chronic problem, well controlled on Lisinopril/hctz 20/12.5mg. Assessment & Plan (07/19/2024 10:58 AM [employer]): Chronic problem, well controlled on Lisinopril/hctz 20/12.5mg. [...] lisinopril Assessment & Plan (08/19/2022 3:00 PM [employer]): Chronic problem, well controlled on current regimen. Lisinopril/hctz 20/12.5mg. No changes at this time. Assessment & Plan (06/18/2022 12:44 PM [employer]): Chronic, well controlled Importance of low salt diet and exercise were discussed Continue current meds Update MA Assessment & Plan (02/28/2022 1:44 PM CDT): Controlled on current medications, no changes. Hyperlipidemia associated with type 2 diabetes julien lisa 02/27/2022 Assessment & Plan (04/13/2025 9:43 AM CDT): Chronic problem, currently taking Rosuvastatin 40mg & fenofibrate 160mg daily. Last lipid panel: 07/19/24 HAC=649, IQ=000 Assessment & Plan (01/11/2025 9:52 AM CDT): Chronic problem, currently taking Rosuvastatin 40mg & fenofibrate 160mg daily. Last lipid panel: 07/19/24 RFN=929, YS=766 Assessment & Plan (10/28/2024 10:13 AM CDT): Chronic problem, not controlled on current Rosuvastatin 40mg & fenofibrate 160mg daily. Last lipid panel: 07/19/24 DZR=845, KF=821 Assessment & Plan (07/19/2024 10:58 AM [employer]): Chronic problem, well controlled on current Rosuvastatin 40mg & fenofibrate 160mg daily. Last lipid panel: 06/10/23 LDL=70, IW=050. Will update labs. Verified that she uses [employer]. Aware to check results/results letter in [employer]. Will contact by phone if needed. Assessment & Plan (04/01/2024 9:41 AM CDT): Chronic problem, well controlled on current Rosuvastatin 40mg & fenofibrate 160mg daily. Last lipid panel: 06/10/23 LDL=70, ZK=740. Assessment & Plan (02/11/2024 11:04 AM CDT): Chronic problem, well controlled on current Rosuvastatin 40mg & fenofibrate 160mg daily. Last lipid panel: 06/10/23 LDL=70, ZI=040. Assessment & Plan (09/25/2023 11:10 AM CDT): Chronic problem, well controlled on current Rosuvastatin 40mg & fenofibrate 160mg daily. Last lipid panel: 06/10/23 LDL=70, DO=763. Assessment & Plan (03/18/2023 4:36 PM CDT): Chronic, well-controlled Continue statin therapy with rosuvastatin Assessment & Plan (08/19/2022 2:59 PM [employer]): Chronic problem, well controlled on current rosuvastatin 40mg daily. Last lipid panel 10/25/21: LDL=55, KS=335. No changes at this time. Assessment & Plan (02/28/2022 1:44 PM CDT): Chronic problem. On statin therapy, no changes. Type 2 diabetes mellitus wit h hyperglycemia, with long-term current use of insulin 05/03/2021 Assessment & Plan (04/13/2025 10:26 AM CDT): Chronic problem, uncontrolled. A1c [place] from 7.7% 01/11/25 to 7.9% GMI on Dexcom showing 9.0%. -Start taking the morning insulin as your mornings are running very high. -will start Mounjaro 2.5mg weekly; sent in to pharmacy today. Current medications: Januvia 100mg daily Glimepiride 4mg at lunch & dinner Mounjaro 2.5mg weekly Lantus 75 units every morning Humalog 60 units before lunch & dinner (eats 2 meals/day) For blood sugars over 200: take 65 units For blood sugars over 300: take 75 units In morning if NOT eating : For blood sugar over 150: take 15 units For blood sugar over 200: take 25 units For blood sugar over 300: take 35 units UTD on labs. UTD on DM eye exam (11/26/[address] [facility] in [place]). Had appt 11/2024; 3rd request letter sent to get copy of report. Discussed [...] skin breakdown and infection. Assessment & Plan (01/11/2025 10:52 AM CDT): Chronic problem, uncontrolled. A1c improved slightly from 7.9% 10/28/24 to 7.7% Current medications: Glimepiride 4mg at lunch & [...] on labs. UTD on DM eye exam (11/26/[address] [facility] in [place]). Had appt 11/2024; letter sent to get copy of report. Discussed [...] skin breakdown and infection. Assessment & Plan (10/28/2024 10:33 AM CDT): [...] on DM eye exam (12/04/22 no DMR/DME [facility]). 11/2023 [facility] in [place]. Sent 3rd request letter. Discussed with Hannah [...] infection. Assessment & Plan (07/19/2024 11:20 AM [employer]): Chronic problem, uncontrolled. A1c improved slightly from [...] mychart. Aware to check results/results letter in [employer]. Will contact by phone if needed. DM eye exam 11/[address] [facility] in [place]. Will send 2nd request letter. Discussed with [...] UTD on labs. DM eye exam 11/[address] [facility] in [place]. Will send 2nd request letter. Discussed with [...] DM eye exam 11/2023 [facility] in [place]. Discussed with Hannah Mejia: Limited currently d/t [...] CMP lab today. Verified that she uses [employer]. Aware to check results/results letter in [employer]. Will contact by phone if needed. To call to make a diabetic eye exam. Had appt 10/2022 at [facility]--letter sent to get copy of report. [...] infection. Assessment & Plan (06/10/2023 1:04 PM [employer]): Continues to be uncontrolled Insulin regimen, explained [...] If Assessment & Plan (08/20/2022 10:52 AM [employer]): Chronic problem, uncontrolled. Has had steroid injections [...] CMP lab today. Verified that she uses [employer]. Aware to check results/results letter in [employer]. Will contact by phone if needed. To call to make a diabetic eye exam. Letter sent to [facility] to get copy of eye exam from 11/2021. Assessment & Plan (06/18/2022 12:44 PM [employer]): Uncontrolled Jardiance d/c Continue Metformin Insulin regimen [...] Encounters Date Type Department Care Team Description 04/18/2025 Results Follow-Up [facility] Diabetes and Endocrinology [address] [place] [phone] Tasneem Prather NP TSH, T4, free 04/13/2025 11:00 AM CDT Lab [address] [address] Hypothyroidism, unspecified type 04/13/2025 10:00 AM CDT Office Visit [facility] Diabetes and Endocrinology [address] [place] [phone] Tasneem Prather NP Type 2 diabetes mellitus with hyperglycemia, with long-term current use of insulin (HCC) (Primary Dx); Hypertension associated with type 2 diabetes mellitus (HCC); Hyperlipidemia associated with type 2 diabetes mellitus (HCC); Diabetic polyneuropathy associated with type 2 diabetes mellitus (HCC); Hypothyroidism, unspecified type 03/03/2025 Telephone [facility] Diabetes and Endocrinology [address] [place] [phone] Tasneem Prather NP Walpriya's request OV from Last 3 Months Surgical History Surgery Date Site/Laterality Comments KIDNEY STONE SURGERY TRIGGER FINGER RELEASE Bilateral NERVE REPAIR CARPAL TUNNEL RELEASE Bilateral BREAST BIOPSY Bilateral CYST REMOVAL legs HYSTERECTOMY SHOULDER SURGERY KNEE SURGERY Medical History Medical History Date Comments Hypertension Type 2 diabetes mellitus Thyroid condition Family History Medical History Relation Name Comments Diabetes Father Hypertension Father Diabetes Mother Hypertension Mother Relation Name Status Comments Father Mother Social History Tobacco Use Types Packs/Day Years Used Date Smoking Tobacco: Never Smokeless Tobacco: Never Tobacco Cessation:Counseling Given: Not Answered PHQ-2 Answer Date Recorded PHQ-2 Total Score (If total score is 3 or more points, staff should administer the PHQ-9) 0 06/10/2023 Comments No Sex and Gender Information Value Date Recorded Sex Assigned at Not on file Legal Sex Female 2:31 PM [employer] Gender Identity Not on file Sexual Orientation Not on file Last Filed Vital Signs Vital Sign Reading Time Taken Comments Blood Pressure 146/64 04/13/2025 10:24 AM CDT Pulse 80 04/13/2025 9:46 AM CDT Temperature - - Respiratory Rate 18 04/13/2025 9:46 AM CDT Oxygen Saturation - - Inhaled Oxygen Concentration - - Weight 106 kg (233 lb 11.2 oz) 04/13/2025 9:46 A M CDT Height 157.5 cm (5' 2.01) 04/13/2025 9:46 AM CD T Body Mass Index 42.73 04/13/2025 9:46 AM CDT Plan of Treatment Health Maintenance Due Date Last Done Comments Colon Cancer Screening-Colonoscopy 1960 Hepatitis C Screening 1960 Osteoporosis Screening-Bone Density Scan 1959 Hepatitis B Screening 1977 Zoster Vaccine (1 of 2) 2009 Pneumococcal vaccine 65+ (2 of 2 - PCV) 07/10/2017 07/10/2016 DTaP/Tdap/Td Vaccine (2 - Td or Tdap) 07/24/2020 07/24/2010 Breast Cancer Screening-Mammogram 04/20/2022 021 Well Visit 65+ 2024 Depression Screening 06/10/2024 06/10/2023, 06/18/2022, 10/25/2021, Additional history exists Fall Risk Assessment 06/10/2024 06/10/2023 Covid-19 Vaccine ( - 2024-2 6 season) 2025 06/19/2021, 10/10/2020, 09/19/2020 Influenza Vaccine (#1) 2025 , 04/12/2020, 05/12/2019, Additional history exists Albumin Creatinine Ratio, Urine 07/19/2025 07/19/2024, 06/10/2023, 06/18/2022, Additional history exists eGFR 07/19/2025 07/19/2024, 032 07/2023, 08/20/2022, Additional history exists Hemoglobin A1C 10/12/2025 04/13/2025, 07/0 02/2025, 10/28/2024, Additional history exists Foot Exam 10/28/2025 10/28/2024, 09/05, 02/28/2022, Additional history exists Dilated Eye Exam 11/25/2025 11/26/2023, 12/04/2022 Lipid Panel 03/24/2026 03/24/2025, 07/07, 06/10/2023, Additional history exists Procedures Procedure Name Priority Date/Time Associated Diagnosis Comments T4, FREE Routine 04/13/2025 11:04 AM CDT Hypothyroidism, unspecified type TSH Routine 04/13/2025 11:04 AM CDT Hypothyroidism, unspecified type POCT HEMOGLOBIN A1C Routine 04/13/2025 1 0:02 AM CDT Type 2 diabetes mellitus with hyperglycemia, with long-term current use of insulin (HCC) POCT GLUCOSE Routine 04/13/2025 9:57 AM CDT Type 2 diabetes mellitus with hyperglycemia, with long-term current use of insulin (HCC) EGFR Routine 07/19/2024 11:32 AM [employer] Type 2 diabetes mellitus with hyperglycemia, with long-term current use of insulin (HCC) Hypertension associated with type 2 diabetes mellitus (HCC) LIPID PANEL Routine 07/19/2024 11:32 AM [employer] Type 2 diabetes mellitus with hyperglycemia, with long-term current use of insulin (HCC) Hyperlipidemia associated with type 2 diabetes mellitus (HCC) ALBUMIN CREATININE RATIO, URINE Routine 07/19/2024 11:32 AM [employer] Type 2 diabetes mellitus with hyperglycemia, with long-term current use of insulin (HCC) HM DIABETES EYE EXAM Routine 11/26/2023 from Last 3 Months or Most Recently Relevant to Health Maintenance Results * (ABNORMAL) TSH (04/13/2025 11:04 AM CDT) Thyroid Stimulating Hormone 4.93(H) 0.30 - 4.20 mcIUnit/mL Blood 04/13/2025 11:0 4 AM CDT 04/13/2025 2:01 PM CDT us Tasneem Prather NP LAB BLOOD ORDERABLES Carolann l Result ALEX [address] [facility] Department [place] [address] * (ABNORMAL) T4, free (04/13/2025 11:04 AM CDT) [facility] Free T4 0.89(L) 0.90 - 1.70 ng/dL Blood 04/13/2025 11:0 4 AM CDT 04/13/2025 2:01 PM CDT Tasneem Prather NP LAB BLOOD ORDERABLES Carolann l Result ALEX [address] [place] [address] * (ABNORMAL) POCT hemoglobin A1c (04/13/2025 10:02 AM CDT) [facility] Hemoglobin A1C, POC 7.9(A) 4.0 - 5.6 % Blood 04/13/2025 10:0 2 AM CDT us Tasneem Prather NP POINT OF CARE TEST ORDERA BLES Final Result * (ABNORMAL) POCT glucose (04/13/2025 9:57 AM CDT) [facility] Glucose Blood, POC 247 Normal Fasting 70 - 100, Random <200 mg/dL Blood 04/13/2025 9:57 AM CDT Tasneem Prather NP POINT OF CARE TEST ORDERA BLES Final Result * eGFR (07/19/2024 11:32 AM [employer]) [facility] eGFR >90 >=60 mL/min/1. 73 m2 Comment: [...] reviewed 2021. Blood 07/19/2024 11:3 2 AM [employer] 07/19/2024 5:18 PM [employer] Tasneem Prather DOOR TO DOOR FUNDRAISING COLLECTOR LAB BLOOD ORDERABLES Carolann l Result Performing Organization Address [facility] de Phone Number ALEX [place] [address] [place] [address] * Albumin Creatinine Ratio, Urine (07/19/2024 11:32 AM [employer]) Albumin Ur 18.2 mg/L Comment: Interpretive Data No reference range established. Current interpretive data was last revised 2018. Creatinine Ur 92.3 mg/dL [facility] Comment: Interpretive Data No reference range established. Current interpretive data was last revised 2018. Albumin Creatinine Ratio, Ur 20 1 - 29 mg/g ALEX Urine 07/19/2024 11:3 2 AM [employer] 07/19/2024 5:00 PM [employer] Tasneem Prather DOOR TO DOOR FUNDRAISING COLLECTOR LAB URINE ORDERABLES Carolann l Result Performing Organization Address [facility] Co de Phone Number [facility] [address] [place] [place] [address] * (ABNORMAL) Lipid panel (07/19/2024 11:32 AM [employer]) Cholesterol 222(H) 30 - 199 mg/dL Comment: [...] 3. Zach Pierce et al. FLOWER Cardiol. 2020 November 04;5(5):540-548. doi: [email or web address] Current Interpretive Data was last revised on 2024. Non-HDL Cholesterol 191 mg/dL ALEX Comment: Interpretive Data Ages < or = [...] last revised on 2018. Chol/HDL ratio 7 ALEX Blood 07/19/2024 11:3 2 AM [employer] 07/19/2024 5:00 PM [employer] Tasneem Prather NP LAB BLOOD ORDERABLES Carolann l Result ALEX [address] Department of Laboratories [place], [place] [id number] * DIABETES EYE EXAM (11/26/2023) SCRIBED DIABETIC DILATED EYE EXAM Normal 11/26/2023 Historical Provider HEALTH MAINTENANCE Edited Result - Final from Last 3 Months or Most Recently Relevant to Health Maintenance Insurance [facility] [place] [address] Care Teams Tightener Relationship Specialty Start Date End Date Adolfo Lyn PA [facility] [place], [place] [phone] PCP - General Internal Medicine 04/01/24 Kishore Omer MD [address] [facility] [address] [place] [id number] Referring Physician Orthopedic Surgery 11/02/24
--- OUTSIDE RECORDS SUMMARY | 2025-05-20 09:25 | XMS_ITS | Encounter Summary ---
Author Organization [facility] Healthcare Address [address] [place] [address] Care Team Providers Care Life Sciences Director Name Role Phone Adolfo Lyn Primary Care Provider + Kishore Omer MD Unavailable [phone] Encounter Details Date Type Department Care Team (Late st Contact Info) Description 04/18/2025 Results Follow-Up [facility] Medical Group Diabetes and Endocrinology [address] [place] [id number] [place] [address] [facility] [address], [place] [address] TSH, T4, free Social History Tobacco Use Types Packs/Day Years Used Date Smoking Tobacco: Never Smokeless Tobacco: Never PHQ-2 Answer Date Recorded PHQ-2 Total Score (If total score is 3 or more points, staff should administer the PHQ-9) 0 06/10/2023 Comments No Sex and Gender Information Value Date Recorded Sex Assigned at Not on file Legal Sex Female 2:31 PM [employer] Gender Identity Not on file Sexual Orientation Not on file documented as of this encounter Miscellaneous Notes * Result Encounter Note - Tasneem Prather NP - 04/18/2025 1:26 PM CDT Wood [place], Your thyroid is still showing mild hypothyroidism (TSH is elevated above normal). Please make sure you're taking your levothyroxine 30-60 minutes before any other medications or food. If you're currently doing it that way--increase to: Levothyroxine 1 tab Friday-, 2 tabs Friday-Friday. This will increase your daily average levothyroxine dose from 128 mcg to 142 mcg. We'll repeat your thyroid labs at your next appointment with me July 25, 2025. Please call or send a [employer] message if any questions. Thank you, Tasneem Prather, ALLISON-c documented in this encounter Plan of Treatment Not on file documented as of this encounter Visit Diagnoses Not on filedocumented in this encounter Care Teams Life Sciences Director Relationship Specialty Start Date End Date Adolfo Lyn PA [address] [place] [address] PCP - General Internal Medicine 04/01/24 Kishore Omer MD [address] [facility] [address] [place] [address] Referring Physician Orthopedic Surgery 11/02/24 documented as of this encounter
[2025-05-20 11:19] LABS: Hematocrit 45.5 % (37.0-47.0); Hemoglobin 14.4 g/dL (12.0-15.0); Immature Granulocyte Percent A 0.5 % (0-0.5); Lymphocytes Absolute Auto 1.97 K/mm3 (0.9-3.2); Mean Corpuscular HGB Conc 31.6 g/dl (32-36); Mean Corpuscular Hemoglobin 28.5 pg (26-34); Mean Corpuscular Volume 89.9 fl (80-100); Nucleated Red Blood Cells Absolute Auto 0.000 K/mm3 (0.0-0.012); Nucleated Red Blood Cells Perc 0.0 % (0.0-0.2); Platelet Count Result 194 k/mm3 (150-375); Red Blood Count 5.06 M/mm3 (4.2-5.4); White Blood Count 7.4 K/mm3 (4.5-10.0)
[2025-05-20] MEDS: SODIUM CHLORIDE 0.9% IV 1,000 ML 999 ML IV CONT (11:30)
[2025-05-20] MEDS: ONDANSETRON INJ 4 MG/2 ML VIAL IV PUSH (11:32)
[2025-05-20] MEDS: fentaNYL CITRATE INJ (*CRX) 100 MCG/2 ML VIAL 25 MCG IV PUSH (11:33)
[2025-05-20 11:34] LABS: Alanine Aminotransferase 30 U/L (6-35); Albumin Level 4.6 g/dL (3.5-5.1); Alkaline Phosphatase 62 U/L (38-126); Anion Gap 10 mmol/L (4-12); Aspartate Amino Transferase 29 U/L (14-36); Bilirubin,Total 0.5 mg/dL (0.2-1.3); Blood Urea Nitrogen 17 mg/dL (7-17); Calcium 10.2 mg/dL (8.4-10.2); Carbon Dioxide 26 mmol/L (22-30); Chloride 102 mmol/L (98-107); Estimated CRCL calculation 63 ml/min; Estimated Glomerular Filt Rate > 60; Glucose 138 mg/dL (65-110); Lipase 148 U/L (23-300); Potassium 4.3 mmol/L (3.4-5.0); Sodium 138 mmol/L (137-145); Total Protein 7.7 g/dL (6.3-8.2)
[2025-05-20 11:36] LABS: Add Urine Microscopic? YES; Appearance Urine Clear (Clear); Glucose Urine UA Negative (Negative); Leukocyte Esterase Ur 1+ LEU/UL (Negative); Need Manual Microscopic Reviewed; Nitrate Urine Negative (Negative); Non Pathogenic Casts 0-2; Specific Grav Ur 1.019 (1.001-1.035)
--- NOTE | 2025-05-20 12:10 | ED.NAVMDI ---
HPI - Nausea/Vomiting/Diarrhea General Chief complaint: Nausea/Vomiting/Diarrhea Stated complaint: n/v/d Time Seen by Provider: 05/20/25 09:44 Source: patient Mode of arrival: ambulatory Limitations: no limitations History of Present Illness HPI Narrative: Patient is a 65-year-old female, with past medical history of ulcerative colitis on sulfasalazine, DM, who presents the ED with report of nausea, vomiting, diarrhea. Patient reports having persistent symptoms over the past 4 days. Notes she is on Mounjaro, and had her dose doubled from 2.5 to 5mg the day before the sx's began. She notes she has GI issues when she receives her dose, however these sx's seemed to be worse. Reports diffuse abdominal pain. Denies fevers, rectal bleeding, melena, hematemesis. Related Data Home Medications ?Medication ?Instructions ?Recorded ?Confirmed ?Last Taken ?Type cetirizine 10 mg tablet 10 mg PO DAILY 03/22/21 05/04/25 07/30/21 History famotidine 40 mg tablet 40 mg PO DAILY 03/22/21 05/04/25 07/30/21 History fenofibrate 160 mg tablet 160 mg PO DAILY 03/22/21 05/04/25 07/30/21 History levothyroxine 25 mcg capsule 25 mcg PO DAILY 03/22/21 05/04/25 07/30/21 History lisinopril 20 1 tablet PO DAILY 03/22/21 05/04/25 07/30/21 History mg-hydrochlorothiazide 12.5 mg tablet montelukast 10 mg tablet 10 mg PO DAILY 03/22/21 05/04/25 07/30/21 History rosuvastatin 20 mg tablet 20 mg PO DAILY 03/22/21 05/04/25 07/30/21 History sertraline 100 mg tablet 200 mg PO HS 03/22/21 05/04/25 07/30/21 History empagliflozin 10 mg tablet 10 mg PO DAILY 07/27/21 05/04/25 07/30/21 History (Jardiance) insulin glargine 100 unit/mL (3 20 unit subcut BID 07/27/21 05/04/25 07/30/21 History mL) subcutaneous pen (Lantus Solostar U-100 Insulin) aspirin 81 mg tablet,delayed 81 mg PO DAILY 10/29/21 05/04/25 Unknown History release gabapentin 300 mg capsule 300 mg PO TID 10/29/21 05/04/25 Unknown History insulin lispro 200 unit/mL (3 mL) 1 sliding scale dose subcut 05/04/25 05/04/25 Unknown History subcutaneous pen (Humalog KwikPen USEASDIRECTD U-200 Insulin) tirzepatide 2.5 mg/0.5 mL 2.5 mg subcut WEEKLY 05/04/25 05/04/25 Unknown History subcutaneous pen injector (Mounjaro) Allergies Allergy/AdvReac Type Severity Reaction Status Date / Time codeine Allergy Severe Anaphylaxis Verified 05/20/25 08:58 orphenadrine Allergy Severe Anaphylactic Verified 05/20/25 08:58 Shock iohexol (From contrast - CT, Allergy Intermediate Hives Verified 05/20/25 08:58 X-RAY) caffeine Allergy Mild Hives Verified 05/20/25 08:58 meperidine Allergy Mild Unknown Verified 05/20/25 08:58 Review of Systems Review of Systems: All systems reviewed & are unremarkable except as noted in HPI. All systems reviewed & are unremarkable except as noted in HPI and below PMFSH Past Medical History Medical History Screening mammogram, encounter for Acute medial meniscus tear Diabetes Fibrocystic breast disease Medial meniscus tear Recurrent Diarrhea Wears glasses Diabetes Arthritis Hair loss Anxiety Depression Excessive thirst Abdominal pain Nausea & vomiting HTN (hypertension) Diet-controlled hyperlipidemia Vision abnormalities Falls frequently Medial meniscus tear Right knee pain Surgical History Surgical History Hx of arthroscopy of right knee 07/31/21 & 11/06/21 History of elbow surgery bilateral History of hand surgery bilateral trigger finger History of shoulder surgery History of hysterectomy Family History Family History Other Arthritis Asthma Depression Diabetes mellitus Heart disease High cholesterol Hypertension Kidney disorder Lung disease Neuropathy Social History Social History Smoking packs per day: 1 Smoking cigarettes per day: 20.0 Years smoked: 10 Smoking pack-years: 10.00 Smoking status: Former smoker Second hand tobacco smoke exposure: No Smoking end date: 10/29/01 Alcohol intake: never Substance use: never Substance use type: does not use Do You Feel Safe in your Home?: Yes Lack of Transportation: No Lack of Food: Never True Current Housing: I Have Housing Concerned About Future Housing: No Difficulty Paying Gas/Electric Bills: YES Difficulty Paying for Meds: No Currently Unemployed: No Education: Associate Degree Difficulty w/ Childcare or Family Care: No Living arrangements: alone Additional living arrangements comments: Occupation/Education: unemployed Additional occupation/education comments: disabled Gender identity (if verbalized by the patient): Female Sexual Orientation (if Verbalized by the Patient): Straight or Heterosexual Spiritual care concerns: No Exam Narrative: GENERAL: Well appearing, morbidly obese with BMI of 41.0, non-toxic, in no acute distress. HEAD: Normocephalic, atraumatic. RESPIRATORY: Airway patent, respirations nonlabored. Clear to auscultation bilaterally, no rales, rhonchi, wheezing. CARDIOVASCULAR: Regular rate and rhythm without murmurs, rubs, or gallops. ABDOMINAL: Soft, mild diffuse throughout abdomen, no significant focal tenderness, no rebound, nondistended. Normoactive BS. MUSCULOSKELETAL: Moves all extremities. No gross deformities. SKIN: Warm, dry, normal color. NEURO: A&O X3. Speech clear. Cranial nerves II-XII grossly intact. Steady gait. No ataxic movements. PSYCHIATRIC: Appropriate mood and affect. Normal interaction. Course Vital Signs Vital signs: Vital Signs Temperature 98.0 F 05/20/25 08:59 Pulse Rate 71 05/20/25 08:59 Respiratory Rate 18 05/20/25 08:59 Blood Pressure 141/69 H 05/20/25 08:59 Pulse Oximetry 95 05/20/25 08:59 Oxygen Delivery Room Air 05/20/25 08:59 Temperature 98.0 F 05/20/25 08:59 Pulse Rate 68 05/20/25 12:16 Respiratory Rate 20 05/20/25 12:16 Blood Pressure 164/80 H 05/20/25 12:31 Pulse Oximetry 96 05/20/25 12:31 Oxygen Delivery Room Air 05/20/25 08:59 MDM - Nausea/Vomiting/Diarrhea MDM Narrative Medical decision making narrative: Patient presented to ED with 4 day history of nausea, vomiting, diarrhea. Recently had mounjaro dose doubled. Also w/ Hx of UC. VSS upon arrival, afebrile. In NAD. Laboratory studies are grossly unremarkable. No leukocytosis or anemia. Stable electrolytes. Lactic acid 1.4. Stable kidney function. UA without signs of infection. CT scan of abdomen/pelvis was obtained and also unremarkable. No surgical abnormalities. Discussed lab and imaging findings with patient, overall reassuring workup. She is feeling improved with supportive therapy. Able to tolerate p.o. intake. Suspicious for GI side effects related to mounjaro vs viral gastroenteritis. Will d/c home with nausea medication as well as Bentyl. Advised to follow-up closely with primary care doctor to discuss mounjaro dosing. Discussed strict return precautions. Patient is in agreement with plan. Feels comfortable going home. Discharged in stable condition. Medical Records Attestation: I reviewed the patient's medical records. Lab Data Attestation: I reviewed the patient's lab results. 05/20/25 11:04 05/20/25 11:04 Labs: Lab Results 05/20/25 Range/Units 11:04 WBC 7.4 (4.5-10.0) K/mm3 RBC 5.06 (4.2-5.4) M/mm3 Hgb 14.4 (12.0-15.0) g/dL Hct 45.5 (37.0-47.0) % MCV 89.9 (80-100) fl MCH 28.5 (26-34) pg MCHC 31.6 L (32-36) g/dl RDW 13.7 (11.5-14.5) % Plt Count 194 (150-375) k/mm3 MPV 10.1 (7.4-10.4) fl Immature Gran % (Auto) 0.5 (0-0.5) % Neut % (Auto) 65.5 (45.5-73.1) % Lymph % (Auto) 26.5 (18.3-44.2) % [place] % (Auto) 5.8 (2.6-8.5) % Eos % (Auto) 1.3 (0-4.4) % Baso % (Auto) 0.4 (0.2-1.2) % Lymph # (Auto) 1.97 (0.9-3.2) K/mm3 [place] # (Auto) 0.4 (0.1-0.6) K/mm3 Eos # (Auto) 0.1 (0-0.3) K/mm3 Baso # (Auto) 0.0 (0.0-0.1) K/mm3 Abs Immat Gran (auto) 0.04 H (0.00-0.031) K/mm3 Absolute Neuts (auto) 4.9 (1.3-6.7) K/mm3 Absolute Nucleated RBC 0.000 (0.0-0.012) K/mm3 Nucleated RBC % 0.0 (0.0-0.2) % Sodium 138 (137-145) mmol/L Potassium 4.3 (3.4-5.0) mmol/L Chloride 102 (98-107) mmol/L Carbon Dioxide 26 (22-30) mmol/L Anion Gap 10 (4-12) mmol/L BUN 17 (7-17) mg/dL Creatinine 0.90 (0.7-1.0) mg/dL Estim Creat Clear Calc 63 ml/min Estimated GFR > 60 (59 - ) Glucose 138 H (65-110) mg/dL Lactic Acid 1.4 (0.7-2.0) mmol/L Calcium 10.2 (8.4-10.2) mg/dL Total Bilirubin 0.5 (0.2-1.3) mg/dL AST 29 (14-36) U/L ALT 30 (6-35) U/L Alkaline Phosphatase 62 (38-126) U/L Total Protein 7.7 (6.3-8.2) g/dL Albumin 4.6 (3.5-5.1) g/dL Lipase 148 (23-300) U/L Urine Color Yellow (Yellow) Urine Appearance Clear (Clear) Urine pH 5.0 (5.0-9.0) Ur Specific Meally 1.019 (1.001-1.035) Urine Protein Negative (Negative) mg/dL Urine Glucose (UA) Negative (Negative) mg/dL Urine Ketones Negative (Negative) mg/dL Ur Blood (Man) Negative (Negative) Urine Nitrate Negative (Negative) Urine Bilirubin Negative (Negative) Urine Urobilinogen 0.2 (<2.0) mg/dL Add Ur Microanalysis Reviewed Leukocyte Esterase Rfl 1+ H (Negative) DIVINA/UL Urine RBC 0-2 (0-2) /hpf Urine WBC 0-5 (0-3) /hpf Ur Squamous Epith Cells Occasional (Few) /hpf Urine Bacteria None seen /hpf Urine Casts 0-2 Imaging Data Attestation: I personally reviewed and interpreted this imaging study as follows: Radiologist's impression: ITS Impressions Abdomen/Pelvis CT 05/20/25 10:55 IMPRESSION: Directed noncontrast exam demonstrating no focal acute process to explain source of patient's symptoms. Discharge Plan Discharge Clinical Impression: Nausea and vomiting Qualifiers: Vomiting type: unspecified Qualified Code(s): R11.2 - Nausea with vomiting, unspecified Diarrhea Qualifiers: Diarrhea type: unspecified type Qualified Code(s): R19.7 - Diarrhea, unspecified Patient Disposition: Home Condition: Stable Instructions: Antibiotic Form, Gastroenteritis (ED), Acute Nausea and Vomiting (ED), Acute Diarrhea (ED) Additional Instructions: Recommend Tylenol, Bentyl as needed for further abdominal discomfort. Utilize zofran as needed for further nausea. Increase fluid intake. Recommend electrolyte rich fluids, gatorade, pedialyte, body armour. Recommend clear liquids or bland diet until symptoms improve, such as bananas, rice, applesauce, toast, or crackers. Follow up with your primary care doctor for further evaluation. Return to the ED if you experience worsening or severe symptoms, unable to keep down food or drink, severe pain, fevers, rectal bleeding, vomiting blood, or any other symptoms of concern. Patient Language: Bangladeshi Prescriptions: New dicyclomine 20 mg tablet 20 mg PO TID PRN (Reason: Abdominal Discomfort) Qty: 15 0RF ondansetron 4 mg tablet,disintegrating 4 mg PO Q8H PRN (Reason: nausea and vomiting) Qty: 15 0RF No Action rosuvastatin 20 mg tablet 20 mg PO DAILY montelukast 10 mg tablet 10 mg PO DAILY cetirizine 10 mg tablet 10 mg PO DAILY fenofibrate 160 mg tablet 160 mg PO DAILY lisinopril-hydrochlorothiazide 20-12.5 mg tablet 1 tablet PO DAILY levothyroxine 25 mcg capsule 25 mcg PO DAILY sertraline 100 mg tablet 200 mg PO HS famotidine 40 mg tablet 40 mg PO DAILY Humalog KwikPen Insulin 200 unit/mL (3 mL) insulin pen 1 sliding scale dose subcut USEASDIRECTD Mounjaro 2.5 mg/0.5 mL pen injector 2.5 mg subcut WEEKLY Rx Instructions: for 4 weeks Lantus Solostar U-100 Insulin 100 unit/mL (3 mL) Insulin Pen 20 unit SUBCUT BID Rx Instructions: 22 in am 20 at night. Jardiance 10 mg Tablet 10 mg PO DAILY aspirin 81 mg Tablet,Delayed Release (Dr/Ec) 81 mg PO DAILY gabapentin 300 mg capsule 300 mg PO TID Follow-up/Referrals: UNKNOWN,DOCTOR [Primary Care Provider] Time of Disposition: 12:25
== END 2025-05-20 12:45 | disposition home or self-care (01) ==
PROVIDERS: Emergency Provider Physician Assistant
DX: R11.2 Nausea with vomiting, unspecified (principal); R19.7 Diarrhea, unspecified; I10 Essential (primary) hypertension; E11.9 Type 2 diabetes mellitus without complications; E78.5 Hyperlipidemia, unspecified; E66.01 Morbid (severe) obesity due to excess calories; Z68.41 Body mass index [BMI] 40.0-44.9, adult; K51.90 Ulcerative colitis, unspecified, without complications; M19.90 Unspecified osteoarthritis, unspecified site; F32.A Depression, unspecified; F41.9 Anxiety disorder, unspecified; Z87.891 Personal history of nicotine dependence; Z90.710 Acquired absence of both cervix and uterus; Z79.4 Long term (current) use of insulin; Z79.899 Other long term (current) drug therapy; Z79.84 Long term (current) use of oral hypoglycemic drugs; Z79.82 Long term (current) use of aspirin; Z79.85 Long-term (current) use of injectable non-insulin antidiabetic drugs; Z79.1 Long term (current) use of non-steroidal anti-inflammatories (NSAID)
CPT/HCPCS: 36415; 74176; 80053; 81001; 83605; 83690; 85025; 87086; 96361; 96374; 96375; 99284; J2405; J3010; J7030